=== PATIENT | male | born 1930 | race Caucasian/White ===

== ENCOUNTER 2017-02-15 14:21 | Inpatient (IN) ==
[2017-02-15] MEDS ORDERED: Naloxone 0.4 MG/ML INJ IVP PRN (16:57)
--- NOTE | 2017-02-15 17:11 | Internal Med History&Physical ---
Date of Encounter: 02/15/17 Time of Encounter: 17:08 Assessment and Plan (1) TIA (transient ischemic attack) Current visit: Yes Status: Acute TIA versus CVA how with intermittency of symptoms and resolution of symptoms and more suspect TIA. Patient reports intermittent expressive aphasia beginning on Monday. Aphasia subsided on Monday however began again this morning approximately 11 AM. Denies any current expressive aphasia at this time. No focal neuro deficits noted. He is hypertensive with -BL Carotid doppler -Continue ASA -Continue Statin -CBC, BMP/CMP, Lipid panel in am -NIHSS now -Dysphagia screening now -Neuro checks q2hrs -Consult Neurology- spoke with Dr. Arteaga will see the patient tomorrow; recommendations are to continue with stroke workup. -Heparin 5000units SC BID -cardiac diet -Permissive hypertension with goal blood systolic blood pressure less than 180 -Hydralazine 2 mg every 6 hours IV push when necessary for hypertension SBP >180 Qualifiers: Transient cerebral ischemia type: unspecified Qualified Code(s): G45.9 - Transient cerebral ischemic attack, unspecified (2) Hypertensive urgency Current visit: Yes Status: Acute Hypertensive urgency. Pressure upon arrival to nursing unit 203/84. Reports that this is abnormal for him. -Resume HCTZ at home dose -Add hydralazine 10mg IVP q6hrs PRN for sustained SBP greater than 180 (3) Sinus bradycardia Current visit: Yes Status: Acute Asymptomatic sinus bradycardia, rate in the 50s. Patient reports he is at this time of the last 3 years. Being followed by cardiology. Remains hemodynamically stable and in no distress (4) CAD (coronary artery disease) Current visit: Yes Status: Acute h/o CAD no prior [place] Continue aspirin, statin Qualifiers: Coronary Disease-Associated Artery/Lesion type: [place] artery [place] vs. transplanted heart: [place] heart Associated angina: without angina Qualified Code(s): I25.10 - Atherosclerotic heart disease of [place] coronary artery without angina pectoris (5) HLD (hyperlipidemia) Current visit: Yes Status: Acute See plan above Qualifiers: Hyperlipidemia type: unspecified Qualified Code(s): E78.5 - Hyperlipidemia , unspecified (6) DVT prophylaxis Current visit: Yes Status: Acute Heparin 5000 units subcutaneous twice a day Internal Medicine - H&P: HPI Chief complaint: Expressive aphasia concern for TIA versus CVA Admitted From: Home Plans for Post Hospital Care: Home History of present illness: Mr. Berkowitz is a 86 year old male with PMH of CAD and HLD. No prior history of CVA or TIA. He reports on Monday heis having difficulty expressing himself. He reports that he was able to think of what he wanted to say but unable to articulate his thoughts. He reports that it is resolved on Monday morning. However, this morning at around 11 AM he began to experience the same symptoms. He denies any fever, chills, chest pain, shortness of breath, facial droop, focal weaknesses, changes in gait, syncope, headache. He does report that he fell Monday evening hitting his head on his drywall. However I am unsure if this is related to his current symptoms. At time he arrived in the emergency department symptoms resolved. Initial workup included CAT scan which was found to be negative. Past Med Surg Social Fam HX - Past Medical History Medical history: coronary artery disease, hyperlipidemia, other Psychiatric history: no psych history - Social History Smoking Status: Never smoker Smokeless Tobacco Status: No Alcohol use: none Drug use: none Internal Medicine - H&P: Meds Aspirin [Lo-Dose Aspirin EC] 81 mg PO DAILY 02/15/17 [History] Carbidopa/Levodopa ER 50/200 [Sinemet ER 50-200 TAB] 1 each PO BID 02/15/17 [ History] Pramipexole Di-HCl [Pramipexole Dihydrochloride] 0.125 mg PO TID 02/15/17 [ History] Simvastatin [Zocor] 40 mg PO HS 02/15/17 [History] Tamsulosin [Flomax] 0.4 mg PO DAILY 02/15/17 [History] hydroCHLOROthiazide [Hydrochlorothiazide] 25 mg PO DAILY 02/15/17 [History] 3 Allergy/AdvReac Type Severity Reaction Status Date / Time No Known Allergies Allergy Verified 02/15/17 12:10 All Systems PM: A 10-system review of systems was performed and is negative for pertinent findings except as documented above in the HPI. Review of systems: GENERAL: Negative for any nausea, vomiting, fevers, chills, or weight loss. NEUROLOGIC: Negative for any blurry vision, blind spots, double vision, facial asymmetry, dysphagia, dysarthria, hemiparesis, hemisensory deficits, vertigo, ataxia. Positive for expressive aphasia HEENT: Positive for head trauma: Reports falling out of his chair landing on his bottom and hitting his head against the drywall, denies neck trauma, neck stiffness, photophobia, phonophobia, sinusitis, rhinitis. CARDIAC: Negative for any chest pain, dyspnea on exertion, paroxysmal nocturnal dyspnea, peripheral edema. PULMONARY: Negative for any shortness of breath, wheezing, COPD, or TB exposure. GASTROINTESTINAL: Negative for any abdominal pain, nausea, vomiting, bright red blood per rectum, melena. GENITOURINARY: Negative for any dysuria, hematuria, incontinence. INTEGUMENTARY: Negative for any rashes, cuts, insect bites. RHEUMATOLOGIC: Negative for any joint pains, photosensitive rashes, history of vasculitis or kidney problems. HEMATOLOGIC: Negative for any abnormal bruising, frequent infections or bleeding. - Constitutional Vitals: Temp Pulse Resp BP Pulse Ox 98 F 61 18 203/84 100 02/15/17 16:36 02/15/17 16:36 02/15/17 16:36 02/15/17 16:36 02/15/17 16:36 Exam: GENERAL: The patient is a well-developed, well-nourished male in no apparent distress who appears his stated age. He is alert and oriented x3. HEENT: Head is normocephalic and atraumatic. Extraocular muscles are intact on the right. 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 Pupil is round and reactive to light and accommodation. Nares appeared normal. Mouth is well hydrated and without lesions. NECK: Supple. No carotid bruits. No lymphadenopathy or thyromegaly. LUNGS: Clear to auscultation. HEART: Regular rate and rhythm without murmur. ABDOMEN: Soft, nontender, and nondistended. Positive bowel sounds. No hepatosplenomegaly was noted. EXTREMITIES: Without any cyanosis, clubbing, rash, lesions or edema. NEUROLOGIC: Cranial nerves II through XII are grossly intact. No focal neurological deficits PSYCHIATRIC: Appropriate affect, but denies suicidal or homicidal ideations. SKIN: No ulceration or induration present. Internal Med - H&P Results - EKG Data -: EKG Interpreted by Myself EKG shows normal: sinus rhythm Rate: bradycardia - EKG Data Prior EKG available for review: yes When compared to previous EKG: there is no significant change Interpretation IM: normal EKG - Diagnostic Studies CT scan - head Status: image reviewed by me Additional comments: Negative for acute intracranial abnormality
[2017-02-15] MEDS: *HR* Heparin 5,000 UNIT/ML VIAL SQ SCH (17:50)
--- NOTE | 2017-02-15 18:35 | Neurology - Consult Note ---
Date of Encounter: 02/15/17 Time of Encounter: 18:29 Assessment and Plan (1) TIA (transient ischemic attack) Current Visit: Yes Status: Acute Two episodes of exact speech difficulty lasting few hours to one day during daytime, without focal neurological deficits. Concerning for recurrent TIA. Been on Aspirin 81mg daily and since TIA occurred twice i would like to add on Plavix 75mg daily. Patient has history of having hypotension to the use of plavix after stent placement but true nature of the incident unclear. Will start Plavix 75mg daily and watch carefully. Would like to get carotid artery duplex and echocardiography. He has no prior history of atrial fibrillation. Patient has bradycardia and certainly rhythm monitoring is needed to assess whether these episodes are cardiac related. Qualifiers: Transient cerebral ischemia type: unspecified Qualified Code(s): G45.9 - Transient cerebral ischemic attack, unspecified History of Present Illness Chief complaint: speech difficulty HPI: Mr. Berkowitz is a 86 year old male with PMH significant for HTN, CAD, who developed acute onset of recurrent speech difficulty. 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 He and his went to [place] for the hol and on Monday he developed speech difficulty lasting all day long. The speech difficulty is described as having trouble finding the right word and also if he talks it came out something different. It lasted all day and Monday morning after waking up symptoms have resolved. They drove back to [place] yesterday. Today morning around 11am the same thing happened again, exactly the same. Lasting few hours with total resolution. At this time, he feels fine and denies any significant discomforts. Back to baseline. CT of head was read as no acute intracranial abnormality. He has been taking aspirin 81mgdaily. He mentioned that he tried one time of plavix after cardiac stent placement and his blood pressure dropped. Not sure it was allergy or something else. He can not get MRI scanning due to metal piece in the left eye. Past Med Surg Social Fam HX - Past Medical History Medical history: coronary artery disease, hyperlipidemia, other Psychiatric history: no psych history - Social History Smoking Status: Never smoker Smokeless Tobacco Status: No Alcohol use: none Drug use: none Medications and Allergies Aspirin [Lo-Dose Aspirin EC] 81 mg PO DAILY 02/15/17 [History] Carbidopa/Levodopa ER 50/200 [Sinemet ER 50-200 TAB] 1 each PO BID 02/15/17 [ History] Pramipexole Di-HCl [Pramipexole Dihydrochloride] 0.125 mg PO TID 02/15/17 [ History] Simvastatin [Zocor] 40 mg PO HS 02/15/17 [History] Tamsulosin [Flomax] 0.4 mg PO DAILY 02/15/17 [History] hydroCHLOROthiazide [Hydrochlorothiazide] 25 mg PO DAILY 02/15/17 [History] 3 Allergy/AdvReac Type Severity Reaction Status Date / Time No Known Allergies Allergy Verified 02/15/17 12:10 All Systems: A 10-system review of systems was performed and is negative for pertinent findings except as documented above in the HPI. Physical Examination - Vital Signs Vital Signs: Initial Vital Signs Temp Pulse Resp BP Pulse Ox 98 F 61 18 203/84 100 02/15/17 16:36 02/15/17 16:36 02/15/17 16:36 02/15/17 16:36 02/15/17 16:36 - Constitutional General appearance: comfortable - Neurologic Sensorimotor examination: intact Motor examination - right side: 5/5: deltoids, biceps, triceps, wrist flexion, wrist extension, kindergarten classroom teacher, hip flexors, tibialis Anterior, quadriceps, toe extension (EHL), plantarflexion Motor examination - left side: 5/5: deltoids, biceps, triceps, wrist flexion, wrist extension, hip flexors, kindergarten classroom teacher, quadriceps, tibialis Anterior, toe extension (EHL), plantarflexion Posture: other (None) Reflex and gait examination: other (Increased muscle tone and cogwheeling rigidity noted. Rest tremors. Bradykinesis) Reflexes: Biceps: 2+, Triceps: 2+, Brachioradialis: 2+, Patella: 2+, Achilles: 2 + Mental Status Examination: awake, alert, oriented to person, oriented to place, oriented to time, follows commands appropriately, answers questions appropriately, no agnosia, no aphasia, no aproxia Cranial nerve examination: PERRL (Reduced verbal output, reduced facial expression soft voice and hesitation speech noted), EOMI, visual serrano intact, corneal reflexes brisk symmetrically, sensory to face intact, mastication intact , no facial asymmetry is present, no dysarthria, hearing is intact symmetrically , soft palate elevates bilaterally upon phonation, gag reflex intact, flexes SCM and trapezius muscles symmetrically with full power, tongue protrudes midline, no atrophy or facial fasiculations present Consult Discharge Plan - Plan Referrals: Jero Hernández DO [Primary Care Provider] -
[2017-02-15] MEDS: Carbidopa/Levodopa ER 50/200 TABLET PO SCH (20:44)
[2017-02-16] MEDS: *HR* Heparin 5,000 UNIT/ML VIAL SQ SCH ×2 (05:16→18:41)
[2017-02-16 06:15] LABS: Basophils % 0.5 %; Eosinophils # 0.4 K/mcL (0.0-0.6); Hematocrit 35.5 % (37.5-50.1); Hemoglobin 11.4 g/dL (12.9-16.9); Immature Granulocytes % 0.5 % (0-4); Lymphocytes # 2.1 K/mcL (0.6-4.6); Lymphocytes % 32.8 %; Mean Corpuscular HGB Conc 32.1 g/dL (31.6-35.5); Mean Corpuscular Hemoglobin 30.5 pg (28.0-33.3); Mean Corpuscular Volume 94.9 fL (83.0-100.0); Mean Platelet Volume 10.9 fL (9.4-12.4); Monocytes # 0.6 K/mcL (0.0-1.3); Monocytes % 9.4 %; Neutrophils # 3.2 K/mcL (1.6-8.9); Platelet Count 183 K/mcL (140-400); Red Blood Count 3.74 M/mcL (4.19-5.50); Red Cell Distribution Width 13.1 % (11.5-14.5); Segmented Neutrophils % 50.8 %
[2017-02-16 06:32] LABS: BUN/Creatinine Ratio 25 (6-26); Blood Urea Nitrogen 23 mg/dL (8-23); Calcium 8.5 mg/dL (8.6-10.3); Carbon Dioxide 25 mEq/L (23-29); Chloride 109 mEq/L (98-107); Chol/HDL Ratio 2.1 (0-4.9); Cholesterol 121 mg/dL (< 200); Glucose 95 mg/dL (70-105); HDL Cholesterol 59 mg/dL (40-59); LDL Cholesterol,Calculated 47 mg/dL (0-99); Osmolality,Calculated 291 (280-300); Potassium 4.2 mEq/L (3.5-5.1); Sodium 139 mEq/L (136-145); Triglycerides 75 mg/dL (< 150); eGFR For African Americans > 60 (> 60); eGFR For Non-African Americans > 60 (> 60)
[2017-02-16] MEDS: hydroCHLOROthiazide 25 MG TABLET PO SCH (09:34)
[2017-02-16] MEDS: Aspirin Enteric Coated 81 MG Tablet PO SCH (09:34)
[2017-02-16] MEDS: Carbidopa/Levodopa ER 50/200 TABLET PO SCH ×2 (09:34→21:29)
--- NOTE | 2017-02-16 12:41 | Neurology Progress Note ---
Date of Encounter: 02/16/17 Time of Encounter: 12:39 Assessment and Plan (1) TIA (transient ischemic attack) Current Visit: Yes Status: Acute Patient developed two episodes of speech difficulty lasting few hours in duration less than 24 hours, no obvious other focal neurological deficits. Unable to get MRI. completed echocardiography and carotid artery duplex which are unremarkable. Will treat as TIA and since he already is on aspirin 81mg daily would add plavix 75mg daily. Patient has been experiencing elevated BP, please continue medical and supportive care. From neurology perspective, no additional testing is recommended. Please continue medical treatment of hypertensive urgency. Qualifiers: Transient cerebral ischemia type: unspecified Qualified Code(s): G45.9 - Transient cerebral ischemic attack, unspecified Subjective Principal diagnosis: TIA Interval history: Patient seen and examined. He remains asymptomatic. He completed carotid artery duplex and echocardiogrpahy, please refer to the reports for details. Will keep him on Aspirin 81mg daily and plavix 75mg daily. He is able to tolerate plavix 75mg daily no difficulty. BP elevated, however. Objective - Constitutional Vitals: Temp Pulse Resp BP Pulse Ox 98.7 F 61 16 199/73 100 02/16/17 11:31 02/16/17 11:31 02/16/17 11:31 02/16/17 11:31 02/16/17 11:31 - Neurological Exam Sensorimotor examination: Present: intact Motor examination - left side: 5/5: deltoids, biceps, triceps, wrist flexion, wrist extension, hip flexors, communications equipment installer, quadriceps, tibialis Anterior, toe extension (EHL), plantarflexion Posture: Present: other (None) Reflex and gait examination: other (Increased muscle tone and cogwheeling rigidity noted. Rest tremors. Bradykinesis) Mental Status Examination: Present: awake, alert, oriented to person, oriented to place, oriented to time, follows commands appropriately, answers questions appropriately, no agnosia, no aphasia, no aproxia Cranial nerve examination: Present: PERRL (Reduced verbal output, reduced facial expression soft voice and hesitation speech noted), EOMI, visual serrano intact, corneal reflexes brisk symmetrically, sensory to face intact, mastication intact, no facial asymmetry is present, no dysarthria, hearing is intact symmetrically, soft palate elevates bilaterally upon phonation, gag reflex intact, flexes SCM and trapezius muscles symmetrically with full power, tongue protrudes midline, no atrophy or facial fasiculations present Results - Laboratory Findings CBC and BMP: 02/16/17 05:09 02/16/17 05:09 Abnormal lab findings: Abnormal lab results RBC 3.74 M/mcL (4.19-5.50) L 02/16/17 05:09 Hgb 11.4 g/dL (12.9-16.9) L 02/16/17 05:09 Hct 35.5 % (37.5-50.1) L 02/16/17 05:09 Chloride 109 mEq/L (98-107) H 02/16/17 05:09 Calcium 8.5 mg/dL (8.6-10.3) L 02/16/17 05:09 Consult Discharge Plan - Plan Referrals: Jero Hernández DO [Primary Care Provider] - 02/28/17 9:30 am
--- NOTE | 2017-02-16 16:41 | Internal Med Progress Note ---
Date of Encounter: 02/16/17 Time of Encounter: 16:39 - Assessment and plan (1) TIA (transient ischemic attack) Current Visit: Yes Status: Acute Qualifiers: Transient cerebral ischemia type: unspecified Qualified Code(s): G45.9 - Transient cerebral ischemic attack, unspecified (2) Hypertensive urgency Current Visit: Yes Status: Acute (3) CAD (coronary artery disease) Current Visit: Yes Status: Chronic Qualifiers: Coronary Disease-Associated Artery/Lesion type: [place] artery [place] vs. transplanted heart: [place] heart Associated angina: without angina Qualified Code(s): I25.10 - Atherosclerotic heart disease of [place] coronary artery without angina pectoris (4) HLD (hyperlipidemia) Current Visit: Yes Status: Chronic Assessment and plan: NO ACUTE FOCAL NEUROLOGICAL SX. PT SEEN BY NEUROLOGY, RECOMMENDS CONT ASA AND ADDING PLAVIX. ECHO AND CAROTIDS COMPLETED AND NO ACUTE FINDINGS. WILL ADD LISINOPRIL AND NORVASC TO BETTER CONTROL BP CONTINUE HCTZ. ANTICIPATE DC TO HOME IN THE AM. Qualifiers: Hyperlipidemia type: pure hypercholesterolemia Qualified Code(s): E78.00 - Pure hypercholesterolemia, unspecified; E78.0 - Pure hypercholesterolemia - Subjective Interval history: REPORTED FEELING BETTER EARLIER TODAY, THEN LATER REPORTS TINGLING ON BOTH FINGERS BUT NO MUSCLE WEAKNES, SLURRING OF SPEECH OR DIPLOPIA - Constitutional Vitals: Temp Pulse Resp BP Pulse Ox 97.5 F L 57 17 129/65 96 02/16/17 16:02 02/16/17 16:02 02/16/17 16:02 02/16/17 16:02 02/16/17 16:02 General appearance: Present: A&O X 3 - Head Head exam: Present: atraumatic, normocephalic - Eye Eye exam: Present: PERRL, conjuntiva pink, sclera anicteric Pupils: Present: PERRL - Neck Neck exam general surgery: Present: supple, trachea midline. Absent: lymphadenopathy - Respiratory Respiratory exam: Present: CTAB. Absent: accessory muscle use, rales, rhonchi, wheezes - Cardiovascular Cardiovascular exam: Present: RRR, +S1, +S2. Absent: diastolic murmur, gallop, rubs, systolic murmur - GI/Abdominal GI/Abdominal exam: Present: normal bowel sounds, soft, no peritoneal signs. Absent: distended, tenderness - Extremities Exam Extremities exam: Present: warm, radial pulses palpable and symmetrical. Absent : calf tenderness, cyanotic, pedal edema - Neurological Exam Neurological exam: Present: CN II-XII intact, oriented X3, no focal deficits. Absent: pronater drift, facial droop, speech deficit - Skin Skin exam: Present: dry, intact Internal Medicine: Result - Labs CBC & Chem 7: 02/16/17 05:09 02/16/17 05:09 Labs: Short CBC 02/16/17 Range/Units 05:09 WBC 6.4 (4.3-11.1) K/mcL Hgb 11.4 L (12.9-16.9) g/dL Hct 35.5 L (37.5-50.1) % Plt Count 183 (140-400) K/mcL Neutrophils # 3.2 (1.6-8.9) K/mcL BMP 02/16/17 05:09 Sodium 139 Potassium 4.2 Chloride 109 H Carbon Dioxide 25 BUN 23 Creatinine 0.92 Glucose 95 Calcium 8.5 L Cardiac Enzymes 02/15/17 Range/Units 17:22 Troponin I < 0.03 (< 0.04) ng/mL - Impressions Impressions Echocardiogram 02/15/17 18:47 Impressions: LVEF 60-65%. Asymmetric basal septal hypertrophy. Indeterminate diastolic function. Normal right ventricular structure and function. Mild aortic regurgitation. Mild mitral regurgitation. No pulmonary hypertension. Unable to perform bubble study - poor IV access. Left Ventricular Wall Motion: Rest Echo Findings All wall segments showed normal motion. Findings: Study Quality * Technically adequate exam. ECG Findings * Normal sinus rhythm. Left Ventricle * LVEF 60-65%. * Normal LV chamber size and function. * Asymmetric basal septal hypertrophy. * Indeterminate diastolic function. Right Ventricle * Normal right ventricular structure and function. Left Atrium * Normal left atrial size. Right Atrium * Normal right atrial size. Aortic Valve * Aortic valve not well visualized. * Mild aortic regurgitation. * No aortic stenosis. Mitral Valve * Normal mitral valve structure. * No mitral stenosis. * Mild mitral regurgitation. Tricuspid Valve * Tricuspid valve not well visualized. * Trace tricuspid regurgitation. Pulmonic Valve * Pulmonic valve is not well visualized. * No pulmonic stenosis. * No pulmonic regurgitation. Interatrial Septum * Interatrial septum not well evaluated. Pulmonary Artery * Pulmonary artery not well visualized. Aorta * Normally sized aortic root. Pericardium * There is no pericardial effusion present. IVC * The IVC is not well evaluated. Head CT 02/16/17 13:30 IMPRESSION: No evidence of acute intracranial abnormality. If clinical symptomatology persists, follow-up MRI examination with diffusion imaging may be helpful for more complete evaluation. D/ / 02/16/2017 15:20:16 Jamal Dudley MD / [email or web address] Interpreting Provider: Jamal Dudley MD Consult Discharge Plan - Plan Referrals: Jero Hernández DO [Primary Care Provider] - 02/28/17 9:30 am
[2017-02-16] MEDS: amLODIPine 5 MG TABLET PO SCH (21:37)
[2017-02-17] MEDS: *HR* Heparin 5,000 UNIT/ML VIAL SQ SCH (06:03)
--- NOTE | 2017-02-17 08:50 | Neurology Progress Note ---
Date of Encounter: 02/17/17 Time of Encounter: 08:46 Assessment and Plan (1) TIA (transient ischemic attack) Current Visit: Yes Status: Acute 86 year old man with HTN, Parkinson disease who developed recurrent episodes of speech difficulty, resolved. Could be related to elevated BP or hypertensive urgency. Symptoms resolved and BP better controlled. Continue Aspirin 81mg daily and Plavix 75mg daily. Patient ready to be discharged. Patient to follow up with PCP regarding hospital stay and management of his HTN. Patient will see me in office, already scheduled. Qualifiers: Transient cerebral ischemia type: unspecified Qualified Code(s): G45.9 - Transient cerebral ischemic attack, unspecified Subjective Principal diagnosis: TIA Interval history: Patient seen and examined. He is asymptomatic. BP appears better controlled. No discomforts. HE is taking Plavix 75mg daily and Aspirin 81mg daily and no side effects reported. Objective - Constitutional Vitals: Temp Pulse Resp BP Pulse Ox 97.8 F 56 15 142/73 95 02/17/17 06:48 02/17/17 06:48 02/17/17 06:48 02/17/17 06:48 02/17/17 06:48 - Neurological Exam Sensorimotor examination: Present: intact Motor examination - right side: 5/5: deltoids, biceps, triceps, wrist flexion, wrist extension, director of quality, hip flexors, tibialis Anterior, quadriceps, toe extension (EHL), plantarflexion Motor examination - left side: 5/5: deltoids, biceps, triceps, wrist flexion, wrist extension, hip flexors, director of quality, quadriceps, tibialis Anterior, toe extension (EHL), plantarflexion Posture: Present: other (None) Reflex and gait examination: tandem gait (Increased muscle tone and cogwheeling rigidity noted. Rest tremors. Bradykinesis) Reflexes: Biceps: 2+, Triceps: 2+, Brachioradialis: 2+, Patella: 2+, Achilles: 2 + Mental Status Examination: Present: awake, alert, oriented to person, oriented to place, oriented to time, follows commands appropriately, answers questions appropriately, no agnosia, no aphasia, no aproxia Cranial nerve examination: Present: PERRL (Reduced verbal output, reduced facial expression soft voice and hesitation speech noted), EOMI, visual serrano intact, corneal reflexes brisk symmetrically, sensory to face intact, mastication intact, no facial asymmetry is present, no dysarthria, hearing is intact symmetrically, soft palate elevates bilaterally upon phonation, gag reflex intact, flexes SCM and trapezius muscles symmetrically with full power, tongue protrudes midline, no atrophy or facial fasiculations present Results - Laboratory Findings CBC and BMP: 02/16/17 05:09 02/16/17 05:09 Abnormal lab findings: Abnormal lab results RBC 3.74 M/mcL (4.19-5.50) L 02/16/17 05:09 Hgb 11.4 g/dL (12.9-16.9) L 02/16/17 05:09 Hct 35.5 % (37.5-50.1) L 02/16/17 05:09 Chloride 109 mEq/L (98-107) H 02/16/17 05:09 Calcium 8.5 mg/dL (8.6-10.3) L 02/16/17 05:09 - Diagnostic Findings Additional findings: EV/EV echocardiogram Impressions: LVEF 60-65%. Asymmetric basal septal hypertrophy. Indeterminate diastolic function. Normal right ventricular structure and function. Mild aortic regurgitation. Mild mitral regurgitation. No pulmonary hypertension. Unable to perform bubble study - poor IV access. Carotid artery duplex : Impressions: Findings: Bilateral proximal ICA have nonstenotic plaque. Consult Discharge Plan - Plan Referrals: Jero Hernández DO [Primary Care Provider] - 02/28/17 9:30 am
[2017-02-17] MEDS: Aspirin Enteric Coated 81 MG Tablet PO SCH (09:24)
[2017-02-17] MEDS: hydroCHLOROthiazide 25 MG TABLET PO SCH (09:25)
[2017-02-17] MEDS: amLODIPine 5 MG TABLET PO SCH (09:26)
[2017-02-17] MEDS: Carbidopa/Levodopa ER 50/200 TABLET PO SCH (09:27)
[2017-02-17 10:40] VITALS: BP 152/75
--- NOTE | 2017-02-17 11:17 | Discharge Summary ---
Date of Encounter: 02/17/17 Time of Encounter: 11:12 - Discharge Diagnosis (1) TIA (transient ischemic attack) Priority: Primary Status: Acute Qualifiers: Transient cerebral ischemia type: unspecified Qualified Code(s): G45.9 - Transient cerebral ischemic attack, unspecified (2) Hypertensive urgency Priority: Primary Status: Acute (3) CAD (coronary artery disease) Priority: Secondary Status: Chronic Qualifiers: Coronary Disease-Associated Artery/Lesion type: [place] artery [place] vs. transplanted heart: [place] heart Associated angina: without angina Qualified Code(s): I25.10 - Atherosclerotic heart disease of [place] coronary artery without angina pectoris (4) HLD (hyperlipidemia) Priority: Primary Status: Chronic Qualifiers: Hyperlipidemia type: pure hypercholesterolemia Qualified Code(s): E78.00 - Pure hypercholesterolemia, unspecified; E78.0 - Pure hypercholesterolemia - Discharge Medications Prescriptions: amLODIPine [Norvasc] 10 mg PO DAILY #60 tablet Clopidogrel [Plavix] 75 mg PO DAILY #90 tablet Home Medications: Aspirin [Lo-Dose Aspirin EC] 81 mg PO DAILY 02/15/17 [History] Carbidopa/Levodopa ER 50/200 [Sinemet ER 50-200 Tab] 1 each PO BID 02/15/17 [ History] Pramipexole Di-HCl [Pramipexole Dihydrochloride] 0.125 mg PO TID 02/15/17 [ History] Simvastatin [Zocor] 40 mg PO HS 02/15/17 [History] Tamsulosin [Flomax] 0.4 mg PO DAILY 02/15/17 [History] hydroCHLOROthiazide [Hydrochlorothiazide] 25 mg PO DAILY 02/15/17 [History] Clopidogrel [Plavix] 75 mg PO DAILY #90 tablet 02/17/17 [Rx] amLODIPine [Norvasc] 10 mg PO DAILY #60 tablet 02/17/17 [Rx] Allergies/Adverse Reactions: 3 Allergy/AdvReac Type Severity Reaction Status Date / Time No Known Allergies Allergy Verified 02/15/17 12:10 Procedures/tests Complete & Pending: Procedures Performed prior 72 hours Category Date Time Status CT head/brain wo con [CT] Routine Cat Scan 02/16/17 13:30 Completed ECG 12 lead ECG [ECG] Routine Y 02/15/17 16:15 Completed EV carotid duplex imaging BI Routine Y 02/15/17 16:54 Completed EV echocardiogram Routine Y 02/15/17 18:47 Completed Date of admission: 02/15/17 16:57 Primary care physician: Jero Hernández DO Consults: 02/15/17 17:07 Consult to Neurology [CONS] Routine Consulting Provider: [facility] Reason for Consult: New expressive aphasia Time Notified: 17:07 Call Completed: Yes 02/17/17 11:09 Consult to Occupational Therapy [CONS] Routine Comment: Evaluate, develop and implement POC Reason for Consult: TIA Consult to Physical Therapy [CONS] Stat Comment: Evaluate, develop and implement POC Reason for Consult: TIA - Patient Status Disposition: Home, Self-Care Overall status at discharge: patient is back to baseline - Discharge Instructions Follow Up With: Jero Hernández DO [Primary Care Provider] - 02/28/17 9:30 am - Diet and Activity Activity: as per physical therapy, increase activity as tolerated Diet: low fat, low cholesterol Hospital course: Mr. Berkowitz is a 86 year old male WIth PMH of CAD and HLD. No prior history of CVA or TIA. He reports on Monday having difficulty expressing himself. He was thought to have CVA. MRI was however negative. Pt is determined to have likely had a TIA. He was seen by neurology who agreed with the TIA doagnosis, recommended adding plavix to his aspirin regimen Will have PT/OT to evaluate patient. Pt is stable for discharge. - Time Spent with Patient Total time spent providing and/or coordinating discharge services: - Constitutional Vitals: Temp Pulse Resp BP Pulse Ox 97.6 F 59 16 152/75 99 02/17/17 10:38 02/17/17 10:38 02/17/17 10:38 02/17/17 10:38 02/17/17 10:38 General appearance: Present: A&O X 3 - Head Head exam: Present: atraumatic, normocephalic - Eye Eye exam: Present: PERRL, conjuntiva pink, sclera anicteric Pupils: Present: PERRL - Neck Neck exam general surgery: Present: supple, trachea midline. Absent: lymphadenopathy - Respiratory Respiratory exam: Present: CTAB. Absent: accessory muscle use, rales, rhonchi, wheezes - Cardiovascular Cardiovascular exam: Present: RRR, +S1, +S2. Absent: diastolic murmur, gallop, rubs, systolic murmur - GI/Abdominal GI/Abdominal exam: Present: normal bowel sounds, soft, no peritoneal signs. Absent: distended, tenderness - Extremities Exam Extremities exam: Present: warm, radial pulses palpable and symmetrical. Absent : calf tenderness, cyanotic, pedal edema - Neurological Exam Neurological exam: Present: CN II-XII intact, oriented X3, no focal deficits. Absent: pronater drift, facial droop, speech deficit - Skin Skin exam: Present: dry, intact
== END 2017-02-17 13:10 | disposition home health service (06) | DRG 69 ==
LOC: 3BNU → OBSVTOIN 15:33
PROVIDERS: ADMIT Internal Medicine Nephrology; ATTEND Registered Nurse

== ENCOUNTER 2017-03-22 19:32 | Inpatient (IN) ==
[2017-03-22] MEDS ORDERED: Naloxone 0.4 MG/ML INJ IVP PRN (22:58)
[2017-03-22] MEDS ORDERED: Furosemide 20 MG/2 ML VIAL IVP ONE (23:12)
[2017-03-22] MEDS ORDERED: Ipratropium/Albuterol Neb 3 ML IH PRN (23:13)
[2017-03-22] MEDS ORDERED: *HR* Atropine Sulfate 1 MG/10 ML SYRINGE IVP PRN (23:24)
--- NOTE | 2017-03-22 23:39 | Internal Med History&Physical ---
Date of Encounter: 03/22/17 Time of Encounter: 22:00 Assessment and Plan (1) Syncope Current visit: Yes Status: Acute Pt had syncope, etiology undetermined. Pt was found bradycardia and hypotension in ER, most likely account for syncope. - Head CT - Continuous cardiac monitoring - Atropine PRN for bradycardia - Echo, duplex carotid - Orthostatic vitals - Consult cardiology in AM for bradycardia Qualifiers: Syncope type: unspecified Qualified Code(s): R55 - Syncope and collapse (2) Hypothermia Current visit: Yes Status: Acute Pt has low T to 93.7. Etiology is undetermined, Pt has Parkinson disease and has rhonchi/wheezes in b/l lungs, need to consider eraly stage pneumonia although CXR negative. Pt has leg swelling but BNP negative. - Check Flu test, lactate, and blood culture. - No leukocytosis or tachypnea, or tachycardia - Empirically treat pt with unasyn for aspiration PNA - Place pt on bear hugger and check temp q 1 hour. - Pt has TSH 12, consider hypothyroidism, will start synthroid. However, it seems not severe enough to cause this hypothermia. Qualifiers: Encounter type: initial encounter Qualified Code(s): T68.XXXA - Hypothermia , initial encounter (3) Hypothyroidism Current visit: Yes Status: Acute Will start synthroid at 75 mcg qd. F/U TSH in 6 wks. Qualifiers: Hypothyroidism type: acquired Qualified Code(s): E03.9 - Hypothyroidism, unspecified (4) PNA (pneumonia) Current visit: Yes Status: Acute Suspect aspiration PNA, Unasyn started. Duoneb PRN and scheduled. Qualifiers: Pneumonia type: aspiration pneumonia Aspiration pneumonia type: unspecified Laterality: unspecified laterality Lung location: unspecified part of lung Qualified Code(s): J69.0 - Pneumonitis due to inhalation of food and vomit (5) CAD (coronary artery disease) Current visit: No Status: Chronic Stable, no chest pain, cont home med Qualifiers: Coronary Disease-Associated Artery/Lesion type: [place] artery [place] vs. transplanted heart: [place] heart Associated angina: without angina Qualified Code(s): I25.10 - Atherosclerotic heart disease of [place] coronary artery without angina pectoris (6) DVT prophylaxis Current visit: No Status: Acute Heparin SC (7) Bradycardia with 31-40 beats per minute Current visit: No Status: Acute Now NSR at HR 60s. EKG in [facility] reviewed, looks like complete AVB with multiple PVCs although EKG machine report A Fib with slow ventricular response. - Cont cardiac monitoring - Atropine PRN for bradycardia - Consult cardiology in AM (8) Parkinson disease Current visit: Yes Status: Acute Cont home medications. (9) Hx of transient ischemic attack (TIA) Current visit: Yes Status: Acute Cont antiplatelet for secondary prevention. Pt has no focal neuro deficit now. Internal Medicine - H&P: HPI Chief complaint: Syncope Admitted From: Home Plans for Post Hospital Care: Home History of present illness: Mr. Berkowitz is a 87 year old male with Hx of Parkinson disease, Hx of TIA, CAD s/p stent, skin cancer s/p multiple surgery sent to [place] ER for syncope. Pt said he had syncope this afternoon. Denies head injury. Denies chest pain, SOB, nausea, or diarhea. In ER pt was found bradycardia to HR 37, hypotension to SBP 70s. EKG shows A Fib with slow ventricular response. He was given atropine in ER and HR get to 60s with NSR. Pt has negative CXR and negative UA. He has hypothermia in ER with T 95-96F. He was further found hypothermia in our hospital with rectal T 93.7. Per pt's daughter Magui, pt is not well for about one week, his speech is slow and sometimes needs to find words to express. Pt has metal in face and cannot have MRI. Past Med Surg Social Fam HX - Past Medical History Medical history: coronary artery disease, hyperlipidemia, other Psychiatric history: no psych history - Social History Smoking Status: Never smoker Smokeless Tobacco Status: No Alcohol use: none Drug use: none - Family History Mother History Unknown: Yes Internal Medicine - H&P: Meds Aspirin [Lo-Dose Aspirin EC] 81 mg PO DAILY 02/15/17 [History] Carbidopa/Levodopa ER 50/200 [Sinemet ER 50-200 Tab] 1 each PO BID 02/15/17 [ History] Pramipexole Di-HCl [Pramipexole Dihydrochloride] 0.125 mg PO TID 02/15/17 [ History] Simvastatin [Zocor] 40 mg PO HS 02/15/17 [History] Tamsulosin [Flomax] 0.4 mg PO DAILY 02/15/17 [History] Clopidogrel [Plavix] 75 mg PO DAILY #90 tablet 02/17/17 [Rx] amLODIPine [Norvasc] 5 mg PO DAILY 03/22/17 [History] 3 Allergy/AdvReac Type Severity Reaction Status Date / Time No Known Allergies Allergy Verified 02/15/17 12:10 All Systems PM: A 10-system review of systems was performed and is negative for pertinent findings except as documented above in the HPI. - Constitutional Constitutional: weight gain (Weight gain 17 Lbs because of stopping diuretics), no chills, no fever(s), no night sweats - EENT Eyes: no change in vision, no discharge, no pain, no photophobia Ears: no ear discharge, no ear pain, no tinnitus Nose, mouth and throat: no dysphagia, no nasal discharge, no neck pain, no sore throat - Cardiovascular Cardiovascular ROS IM: no chest pain, no diaphoresis, no dyspnea, no lightheadedness, no palpitations, no syncope - Respiratory Respiratory: no cough, no dyspnea, no wheezing, no excessive phlegm production - Gastrointestinal Gastrointestinal: no abdominal pain, no diarrhea, no hematemesis, no hematochezia, no melena, no nausea, no vomiting - Musculoskeletal Musculoskeletal ROS IM: no numbness, no tingling - Integumentary Integumentary IM: no rash, no unusual bruising - Neurological Neurological ROS: no confusion, no convulsions, no focal weakness, no numbness, no tingling, no tremor(s) - Hematologic/Lymphatic Hematologic/Lymphatic: no easy bruising - Constitutional Vitals: Temp Pulse Resp BP Pulse Ox 93.7 F L 70 20 114/57 97 03/22/17 22:44 03/22/17 22:44 03/22/17 22:44 03/22/17 22:44 03/22/17 22:44 General appearance: Present: A&O X 3, no acute distress, answers questions appropriately - Head Head exam: Present: atraumatic, normocephalic - Eye Eye exam: Present: PERRL, conjuntiva pink, sclera anicteric Pupils: Present: PERRL - Neck Neck exam general surgery: Present: supple, trachea midline. Absent: lymphadenopathy - Respiratory Respiratory exam: Present: CTAB, wheezes (scattered wheezes/rhonchi b/l). Absent: accessory muscle use, rales, rhonchi - Cardiovascular Cardiovascular exam: Present: RRR, +S1, +S2. Absent: diastolic murmur, gallop, rubs, systolic murmur - GI/Abdominal GI/Abdominal exam: Present: normal bowel sounds, soft, no peritoneal signs. Absent: distended, tenderness - Extremities Exam Extremities exam: Present: pedal edema (B/L pedal edema to knees), warm, radial pulses palpable and symmetrical. Absent: calf tenderness, cyanotic - Neurological Exam Neurological exam: Present: CN II-XII intact, oriented X3, no focal deficits. Absent: pronater drift, facial droop, speech deficit - Skin Skin exam: Present: dry, intact Internal Med - H&P Results - EKG Data -: EKG Interpreted by Myself Rate: bradycardia (Look like complete AVB with PVCs.)
[2017-03-23 00:21] LABS: Basophils % 0.1 %; Eosinophils % 0.4 %; Hematocrit 32.4 % (37.5-50.1); Hemoglobin 10.5 g/dL (12.9-16.9); Immature Granulocytes % 0.3 % (0-4); Lymphocytes # 0.4 K/mcL (0.6-4.6); Lymphocytes % 4.8 %; Mean Corpuscular HGB Conc 32.4 g/dL (31.6-35.5); Mean Corpuscular Hemoglobin 30.2 pg (28.0-33.3); Mean Corpuscular Volume 93.1 fL (83.0-100.0); Mean Platelet Volume 11.2 fL (9.4-12.4); Monocytes # 0.1 K/mcL (0.0-1.3); Monocytes % 1.6 %; Neutrophils # 6.8 K/mcL (1.6-8.9); Platelet Count 159 K/mcL (140-400); Red Blood Count 3.48 M/mcL (4.19-5.50); Red Cell Distribution Width 13.2 % (11.5-14.5); Segmented Neutrophils % 92.8 %
[2017-03-23] MEDS: Ampicillin/Sulbactam 3,000 MG in 0.9 % Sodium Chloride Mini Bag 100 ML IVPB SCH ×5 (00:31→23:38)
[2017-03-23 00:41] LABS: Alanine Aminotransferase 25 Units/L (7-52); Albumin 3.5 g/dL (3.5-5.7); Albumin/Globulin Ratio 1.3 (1.1-2.2); Alkaline Phosphatase 80 Units/L (34-104); Aspartate Amino Transferase 38 Units/L (13-39); BUN/Creatinine Ratio 34 (6-26); Bilirubin,Total 0.5 mg/dL (0.3-1.0); Blood Urea Nitrogen 32 mg/dL (8-23); Calcium 8.5 mg/dL (8.6-10.3); Carbon Dioxide 27 mEq/L (23-29); Chloride 102 mEq/L (98-107); Globulin 2.7 g/dL (2.4-3.5); Glucose 114 mg/dL (70-105); Magnesium 2.1 mg/dL (1.6-2.6); Osmolality,Calculated 286 (280-300); Potassium 3.8 mEq/L (3.5-5.1); Sodium 134 mEq/L (136-145); Total Protein 6.2 g/dL (6.4-8.9); eGFR For African Americans > 60 (> 60); eGFR For Non-African Americans > 60 (> 60)
[2017-03-23 03:54] LABS: Basophils % 0.1 %; Eosinophils % 0.1 %; Hematocrit 31.2 % (37.5-50.1); Hemoglobin 10.4 g/dL (12.9-16.9); Immature Granulocytes % 0.1 % (0-4); Lymphocytes # 0.3 K/mcL (0.6-4.6); Lymphocytes % 4.4 %; Mean Corpuscular HGB Conc 33.3 g/dL (31.6-35.5); Mean Corpuscular Hemoglobin 30.3 pg (28.0-33.3); Mean Platelet Volume 11.6 fL (9.4-12.4); Monocytes # 0.2 K/mcL (0.0-1.3); Monocytes % 3.4 %; Neutrophils # 6.5 K/mcL (1.6-8.9); Platelet Count 147 K/mcL (140-400); Red Blood Count 3.43 M/mcL (4.19-5.50); Red Cell Distribution Width 13.2 % (11.5-14.5); Segmented Neutrophils % 91.9 %
[2017-03-23] MEDS: Ipratropium/Albuterol Neb 3 ML IH SCH ×4 (04:05→22:28)
[2017-03-23 04:18] LABS: BUN/Creatinine Ratio 31 (6-26); Blood Urea Nitrogen 31 mg/dL (8-23); Calcium 8.5 mg/dL (8.6-10.3); Carbon Dioxide 25 mEq/L (23-29); Chloride 103 mEq/L (98-107); Glucose 87 mg/dL (70-105); Osmolality,Calculated 290 (280-300); Potassium 3.3 mEq/L (3.5-5.1); Sodium 137 mEq/L (136-145); eGFR For African Americans > 60 (> 60); eGFR For Non-African Americans > 60 (> 60)
[2017-03-23 04:24] LABS: Triiodothyronine (T3) Free 3.17 pg/mL (2.50-3.90)
[2017-03-23 04:35] LABS: Platelet Estimate Normal (Normal)
[2017-03-23] MEDS ORDERED: Potassium Chloride 40 MEQ, Lidocaine 1% 2 ML in D5% in Water 500 ML IVPB ONE (04:55)
--- NOTE | 2017-03-23 10:55 | Internal Med Progress Note ---
<Venu Andrea - Last Filed: 03/23/17 15:00> Date of Encounter: 03/23/17 Time of Encounter: 10:49 - Assessment and plan (1) Syncope Current Visit: Yes Status: Acute Assessment and plan: - Syncopal episode at home. Patient altered for interview, daughter at bedside was not present. - Pt was reportedly not feeling well for past week - Possibly secondary to bradycardia secondary to hypothyroidism as below. - Cardiology following, appreciate recommendations. Plan - Echo shows EF 65%, valvular abnormalities. no carotid stenotic plaque on US in January. - Cardiology recommendations for bradycardia is to avoid BB for AFib, treat underlying thyroid -Possible CVA etiology, CT head negative in ED. Will consider CT tomorrow morning if no improvement. - Continue to monitor Qualifiers: Syncope type: unspecified Qualified Code(s): R55 - Syncope and collapse (2) Sinus bradycardia Current Visit: Yes Status: Acute Assessment and plan: - Patient was sinus bradycardia on admission with rate in 40s,50s - EKG repeated in ED showing AFib, paroxysmal. - Possible etiology of hypothyroidism. TSH of 12 in [place] ED. Started on synthroid - Other etiology of shock secondary to infection Plan - Cardiology following - Avoid AV node blockers - Continue synthroid, unasyn for possible aspiration PNA - Continue Tele, close monitoring - Atropine PRN bradycardia (3) Atrial fibrillation Current Visit: Yes Status: Acute Assessment and plan: Currently in NSR, however likely AFib on EKG in ED - WIll avoid AV danya blockade as patient has been bradycardic - Consider anticoagulation once more stable. CHADVASC 6 Qualifiers: Atrial fibrillation type: unspecified Qualified Code(s): I48.91 - Unspecified atrial fibrillation (4) Hypothermia Current Visit: Yes Status: Resolved Assessment and plan: Resolved. - Continue heating blanket as needed. - Possible secondary to shock, hypothyroid. Qualifiers: Encounter type: initial encounter Qualified Code(s): T68.XXXA - Hypothermia , initial encounter (5) Hypothyroidism Current Visit: Yes Status: Acute Assessment and plan: - TSH of 12 in [place] ED - Free T4, T4, Free T3 all wnl - Started synthroid 75 on admission. Will continue - Continue to monitor. - Low suspicion for myxedema at this time. Qualifiers: Hypothyroidism type: unspecified Qualified Code(s): E03.9 - Hypothyroidism , unspecified (6) CAD (coronary artery disease) Current Visit: Yes Status: Chronic Assessment and plan: EKG reviewed. No chest pain Continue ASA, plavix Qualifiers: Coronary Disease-Associated Artery/Lesion type: [place] artery [place] vs. transplanted heart: [place] heart Associated angina: without angina Qualified Code(s): I25.10 - Atherosclerotic heart disease of [place] coronary artery without angina pectoris (7) PNA (pneumonia) Current Visit: Yes Status: Acute Assessment and plan: - Possible aspiration PNA as demonstrated on CXR in ED - Aspiration component given syncopal episode - WBC of 7.1, afebrile. Hypothermic on presentation. VSS. Tolerating 4L O2. - Possible source of AFib precipitating as well as thyroid. - Started on unasyn. Will continue - Blood cultures pending. Qualifiers: Pneumonia type: aspiration pneumonia Aspiration pneumonia type: unspecified Laterality: unspecified laterality Lung location: unspecified part of lung Qualified Code(s): J69.0 - Pneumonitis due to inhalation of food and vomit (8) Parkinson disease Current Visit: Yes Status: Chronic Assessment and plan: - Continue home meds. (9) Hx of transient ischemic attack (TIA) Current Visit: Yes Status: Acute Assessment and plan: - Suspect source of syncope is more likely related to thyroid - AMS secondary to infection vs CVA. - CT head negative in ED - Will continue to monitor and continue aspirin and plavix - Low threshold for repeat CT in future if worsens (10) DVT prophylaxis Current Visit: Yes Status: Acute Assessment and plan: SCDs until we are sure of syncope etiology - Time Spent With Patient 25 - 35 minutes - Subjective Interval history: Patient seen and examined at bedside. During time of interview, patient is fast asleep and daughter who is at bedside states that he has been agitated all night and was reaching with possible hallucinations. Daughter also states that his baseline is walking and talking with AOx3. He did have a TIA in January which he was reportedly confused with hallucinations, and slurred speech but he returned to baseline levels. - Constitutional Vitals: Temp Pulse Resp BP Pulse Ox 97.9 F 71 16 102/62 99 03/23/17 09:00 03/23/17 09:06 03/23/17 10:22 03/23/17 09:06 03/23/17 10:22 General appearance: Present: A&O X 3, no acute distress, answers questions appropriately Exam: Gen.: Vitals noted. No acute distress. AAOx0, resting comfortably. Covered in thermal blanket. HEENT: PERRL/EOMI, oropharynx clear, Normocephalic, atraumatic, MMM Cardiac: RRR, no murmur, +S1/S2 Pulmonary: CTA bilaterally, no wheezes, rales or rhonchi, equal chest expansion Abdomen: soft, nontender, BS noted, no guarding Extremities: no BLE edema, nontender calf, no cyanosis or clubbing Neuro: Unable to assess due to mental status. Psych: Unable to assess. Internal Medicine: Result - Labs CBC & Chem 7: 03/23/17 03:16 03/23/17 03:16 Labs: Short CBC 03/23/17 03/23/17 Range/Units 00:11 03:16 WBC 7.3 7.1 (4.3-11.1) K/mcL Hgb 10.5 L 10.4 L (12.9-16.9) g/dL Hct 32.4 L 31.2 L (37.5-50.1) % Plt Count 159 147 (140-400) K/mcL Neutrophils # 6.8 6.5 (1.6-8.9) K/mcL BMP 03/23/17 03/23/17 00:11 03:16 Sodium 134 L 137 Potassium 3.8 3.3 L Chloride 102 103 Carbon Dioxide 27 25 BUN 32 H 31 H Creatinine 0.94 1.01 Glucose 114 H 87 Calcium 8.5 L 8.5 L Liver Function 03/23/17 Range/Units 00:11 Total Bilirubin 0.5 (0.3-1.0) mg/dL AST 38 (13-39) Units/L ALT 25 (7-52) Units/L Alkaline Phosphatase 80 (34-104) Units/L Albumin 3.5 (3.5-5.7) g/dL - Impressions Impressions Head CT 03/22/17 22:57 IMPRESSION: Acute sinusitis. Otherwise no acute intracranial disease. D/ / Lex Benites MD / Lex Benites MD Interpreting Provider: Lex Benites MD Consult Discharge Plan - Plan Referrals: Jero Hernández DO [Primary Care Provider] - <Richard Kimbrough - Last Filed: 03/23/17 18:04> Date of Encounter: 03/23/17 - Constitutional Vitals: Temp Pulse Resp BP Pulse Ox 97.7 F 72 14 111/56 98 03/23/17 14:00 03/23/17 14:00 03/23/17 16:10 03/23/17 14:00 03/23/17 16:10 Internal Medicine: Result - Labs CBC & Chem 7: 03/23/17 03:16 03/23/17 03:16 Labs: Short CBC 03/23/17 03/23/17 Range/Units 00:11 03:16 WBC 7.3 7.1 (4.3-11.1) K/mcL Hgb 10.5 L 10.4 L (12.9-16.9) g/dL Hct 32.4 L 31.2 L (37.5-50.1) % Plt Count 159 147 (140-400) K/mcL Neutrophils # 6.8 6.5 (1.6-8.9) K/mcL BMP 03/23/17 03/23/17 00:11 03:16 Sodium 134 L 137 Potassium 3.8 3.3 L Chloride 102 103 Carbon Dioxide 27 25 BUN 32 H 31 H Creatinine 0.94 1.01 Glucose 114 H 87 Calcium 8.5 L 8.5 L Liver Function 03/23/17 Range/Units 00:11 Total Bilirubin 0.5 (0.3-1.0) mg/dL AST 38 (13-39) Units/L ALT 25 (7-52) Units/L Alkaline Phosphatase 80 (34-104) Units/L Albumin 3.5 (3.5-5.7) g/dL - Impressions Impressions Head CT 03/22/17 22:57 IMPRESSION: Acute sinusitis. Otherwise no acute intracranial disease. D/ / Lex Benites MD / Lex Benites MD Interpreting Provider: Lex Benites MD Echocardiogram Limited Views 03/23/17 00:00 Impressions: LVEF 60-65%. Left Ventricular Wall Motion: Rest Echo Findings All wall segments showed normal motion. Findings: Study Quality * Technically adequate exam. ECG Findings * Normal sinus rhythm. Left Ventricle * LVEF 60-65%. * Mild basal septal hypertophy. Videofluoroscopic Swallow 03/23/17 09:36 IMPRESSION: Swallowing mechanism grossly within normal limits without evidence of aspiration. Please see separate speech pathology report for full discussion of findings and recommendations. D/ / 03/23/2017 12:34:19 Clarke Farooq MD / [facility] Interpreting Provider: Clarke Farooq MD - Attending Attestation I examined this patient and my medical decision-making was reviewed with the Resident Physician. I agree with the documented findings, disposition and treatment plan as described except to the extent set forth below.
--- NOTE | 2017-03-23 11:20 | Cardiology Consult Note ---
<Armando Pablo - Last Filed: 03/23/17 11:33> Date of Encounter: 03/23/17 Time of Encounter: 09:00 Assessment and Plan (1) Sinus bradycardia Current Visit: No Status: Acute Reported to have sinus bradycardia after syncopal event. No rhythm strips or EKG for review during bradycardia. EMS EKG shows HR 64, atrial fibrillation. He is not on AV danya blockade. May be secondary to thyroid disease. TSH 12- hospitalist following. Repeat TTE pending. Avoid AV danya blockers. Continue to monitor. (2) Atrial fibrillation Current Visit: Yes Status: Acute EKG from EMS shows atrial fibrillation. Currently NSR. Avoid AV danya ally due to reported bradycardia. There is concern for CVA/TIA and MRI cannot be completed. Recommend neurology consult to see if they are ok with anticoagulation. CHADS VASc=6 (HTN, age 2, CAD, possible CVA2). AC with NOAc or coumadin would be recommended if ok with neurology. Qualifiers: Atrial fibrillation type: unspecified Qualified Code(s): I48.91 - Unspecified atrial fibrillation (3) Syncope Current Visit: Yes Status: Acute Possibly due to bradycardia although unclear at this time. There is concern for CVA symptoms. CT negative. Continue to monitor. TTE pending. Qualifiers: Syncope type: unspecified Qualified Code(s): R55 - Syncope and collapse (4) CAD (coronary artery disease) Current Visit: No Status: Chronic H/o remote cardiac stent. On asa, plavix. Unknown why he is not on statin or bb previously. Hold bb due to bradycardia. Consider adding statin therapy. Qualifiers: Coronary Disease-Associated Artery/Lesion type: [place] artery [place] vs. transplanted heart: [place] heart Associated angina: without angina Qualified Code(s): I25.10 - Atherosclerotic heart disease of [place] coronary artery without angina pectoris Discussion w patient/family: The assessment and plan as outlined above was discussed with the patient and/or family members who expressed understanding and agreement. All questions were answered. Thank you for involving us in the care of your patient. Please call with any questions. History of Present Illness Consult date: 03/23/17 Requesting physician: Venu Andrea Consult reason: bradycardia Chief complaint: syncopal event, confusion History of present illness: Mr. Berkowitz is a 87 year old male with a past medical history of CAD s/p remote PCI , HTN, and parkisons disease who presented from home after his witnessed him collapsing on the floor. His daughter states his could not wake him up and she called 911. Once EMS arrived they were able to wake him but he was not conversing. He was found to be bradycardic with a heart rate in the 30's and hypotensive. He was also found to have hypothermia with pulse 93.7. He was given atropine in the EMS and ER per reports. HR improved after second dose and no recurrent bradycardia seen. On my exam Mr. Berkowitz is confused. His daughter is at bedside. Prior to this event he was independent and of sound mine. He walks one mile a day without difficulty. Past Med Surg Social Fam HX - Past Medical History Medical history: coronary artery disease, hyperlipidemia, other (parkinson's) Psychiatric history: no psych history - Social History Smoking Status: Never smoker Smokeless Tobacco Status: No Alcohol use: none Drug use: none - Family History Mother History Unknown: Yes Medications and Allergies Aspirin [Lo-Dose Aspirin EC] 81 mg PO DAILY 02/15/17 [History] Carbidopa/Levodopa ER 50/200 [Sinemet ER 50-200 Tab] 1 each PO BID 02/15/17 [ History] Pramipexole Di-HCl [Pramipexole Dihydrochloride] 0.125 mg PO TID 02/15/17 [ History] Simvastatin [Zocor] 40 mg PO HS 02/15/17 [History] Tamsulosin [Flomax] 0.4 mg PO DAILY 02/15/17 [History] Clopidogrel [Plavix] 75 mg PO DAILY #90 tablet 02/17/17 [Rx] amLODIPine [Norvasc] 5 mg PO BID 03/22/17 [History] Losartan Potassium [Cozaar] 100 mg PO DAILY 03/23/17 [History] hydroCHLOROthiazide [Hydrochlorothiazide] 25 mg PO DAILY 03/23/17 [History] 3 Allergy/AdvReac Type Severity Reaction Status Date / Time No Known Allergies Allergy Verified 02/15/17 12:10 All Systems Review: A 10-system review of systems was performed and is negative for pertinent findings except as documented above in the HPI. Physical Examination Vital Signs, Last 4 Hours Temp Pulse Resp BP Pulse Ox 03/23/17 10:22 16 99 02/01/18 09:06 71 14 102/62 96 03/23/17 09:00 97.9 F 72 13 99/56 98 03/23/17 08:31 97 03/23/17 08:00 96.2 F L 82 14 97/57 97 03/23/17 07:45 71 14 102/62 General: Conversant, No Apparent Distress, Other (confused) HEENT: Atraumatic, Normocephaly, Mucus Membranes Moist Neck: No JVD, Normal carotid pulses Cardiac: Reg Rate and Rhythm, Normal S1 and S2, No Murmur Lungs: Normal Breath Sounds, No Wheeze, Rales, Rhonchi Neuro: Alert and responsive, Other (genralized weakness) Abdomen: Soft, Non-Tender Skin: No rashes noted on visualized skin Musculoskeletal: No Chest Wall Tenderness Extremities: No Clubbing, No Cyanosis, Normal Pulses, Other (2+ edema BLE) Results 03/23/17 03:16 03/23/17 03:16 Lab Results 03/23/17 03/23/17 03/23/17 00:11 00:11 00:11 WBC 7.3 Hgb 10.5 L Hct 32.4 L Plt Count 159 Sodium 134 L Potassium 3.8 Chloride 102 Carbon Dioxide 27 BUN 32 H Creatinine 0.94 Glucose 114 H Calcium 8.5 L Magnesium 2.1 Total Bilirubin 0.5 AST 38 ALT 25 Alkaline Phosphatase 80 B-Natriuretic Peptide 122 H 03/23/17 03/23/17 03:16 03:16 WBC 7.1 Hgb 10.4 L Hct 31.2 L Plt Count 147 Sodium 137 Potassium 3.3 L Chloride 103 Carbon Dioxide 25 BUN 31 H Creatinine 1.01 Glucose 87 Calcium 8.5 L Magnesium Total Bilirubin AST ALT Alkaline Phosphatase B-Natriuretic Peptide - Imaging and Cardiology Echo: pending, report reviewed - EKG Interpretation EKG results cardiology: personally reviewed Consult Discharge Plan - Plan Referrals: Jero Hernández DO [Primary Care Provider] - <Sami Flood - Last Filed: 03/23/17 12:25> Date of Encounter: 03/23/17 - Attending Attestation I have personally performed a face to face evaluation on this patient. I have reviewed and agree with the care plan. History and Exam by me shows: Apparent syncope. Noted to have AF on EKG prior to arrival. No bradycardia noted. Would recommend anticoagulation when felt safe. Assessment and Plan Discussion w patient/family: The assessment and plan as outlined above was discussed with the patient and/or family members who expressed understanding and agreement. All questions were answered. Thank you for involving us in the care of your patient. Please call with any questions. History of Present Illness History of present illness: Mr. Berkowitz is a 87 year old male All Systems Review: A 10-system review of systems was performed and is negative for pertinent findings except as documented above in the HPI. Physical Examination Vital Signs, Last 4 Hours Temp Pulse Resp BP Pulse Ox 03/23/17 10:22 16 99 03/23/17 09:06 71 14 102/62 96 03/23/17 09:00 97.9 F 72 13 99/56 98 03/23/17 08:31 97 Results 03/23/17 03:16 03/23/17 03:16 Lab Results 03/23/17 03/23/17 03/23/17 00:11 00:11 00:11 WBC 7.3 Hgb 10.5 L Hct 32.4 L Plt Count 159 Sodium 134 L Potassium 3.8 Chloride 102 Carbon Dioxide 27 BUN 32 H Creatinine 0.94 Glucose 114 H Calcium 8.5 L Magnesium 2.1 Total Bilirubin 0.5 AST 38 ALT 25 Alkaline Phosphatase 80 B-Natriuretic Peptide 122 H 03/23/17 03/23/17 03:16 03:16 WBC 7.1 Hgb 10.4 L Hct 31.2 L Plt Count 147 Sodium 137 Potassium 3.3 L Chloride 103 Carbon Dioxide 25 BUN 31 H Creatinine 1.01 Glucose 87 Calcium 8.5 L Magnesium Total Bilirubin AST ALT Alkaline Phosphatase B-Natriuretic Peptide
[2017-03-23] MEDS: Aspirin Enteric Coated 81 MG Tablet PO SCH (13:40)
[2017-03-23] MEDS: Carbidopa/Levodopa ER 50/200 TABLET PO SCH ×2 (13:47→21:24)
[2017-03-23] MEDS ORDERED: Haloperidol Lactate 5 MG/ML VIAL IVP ONE (21:50)
[2017-03-24] MEDS: Ipratropium/Albuterol Neb 3 ML IH SCH ×4 (03:50→22:47)
[2017-03-24 03:58] LABS: Basophils % 0.2 %; Eosinophils % 0.3 %; Hematocrit 26.9 % (37.5-50.1); Immature Granulocytes % 0.8 % (0-4); Lymphocytes # 1.1 K/mcL (0.6-4.6); Lymphocytes % 7.8 %; Mean Corpuscular HGB Conc 33.5 g/dL (31.6-35.5); Mean Corpuscular Hemoglobin 30.7 pg (28.0-33.3); Mean Corpuscular Volume 91.8 fL (83.0-100.0); Mean Platelet Volume 11.4 fL (9.4-12.4); Monocytes # 0.5 K/mcL (0.0-1.3); Monocytes % 3.6 %; Neutrophils # 12.8 K/mcL (1.6-8.9); Platelet Count 134 K/mcL (140-400); Red Blood Count 2.93 M/mcL (4.19-5.50); Red Cell Distribution Width 13.8 % (11.5-14.5); Segmented Neutrophils % 87.3 %
[2017-03-24 04:11] LABS: BUN/Creatinine Ratio 25 (6-26); Blood Urea Nitrogen 26 mg/dL (8-23); Calcium 8.4 mg/dL (8.6-10.3); Carbon Dioxide 28 mEq/L (23-29); Chloride 102 mEq/L (98-107); Glucose 104 mg/dL (70-105); Osmolality,Calculated 285 (280-300); Potassium 3.8 mEq/L (3.5-5.1); Sodium 135 mEq/L (136-145); eGFR For African Americans > 60 (> 60); eGFR For Non-African Americans > 60 (> 60)
[2017-03-24] MEDS: Ampicillin/Sulbactam 3,000 MG in 0.9 % Sodium Chloride Mini Bag 100 ML IVPB SCH ×3 (05:59→18:20)
--- NOTE | 2017-03-24 10:18 | Neurology - Consult Note ---
Date of Encounter: 03/24/17 Time of Encounter: 10:16 Assessment and Plan (1) Acute encephalopathy Current Visit: Yes Status: Acute Patient presented with syncopal episode and confusion as reported by the patient 's daughter. Patient appears to be awake, alert, and oriented 3 and is able to tell me who the president is however the daughters do not feel that he is back to his baseline. Confusion could be related to underlying toxic/metabolic processes including aspiration pneumonia for which he is being treated. This appears to be improving. Syncopal event is likely related to cardiogenic causes including symptomatic bradycardia, cardiology is following. Patient's constellation of symptoms could be related to TIA/CVA as the patient is certainly at risk for stroke given previous TIAs, newly diagnosed atrial fibrillation as well as hypertension. Unfortunately the patient has metal in his eye from a previous injury so MRI is unable to be obtained. Would recommend carotid imaging for complete workup. Given newly diagnosed atrial fibrillation patient was certainly be a candidate for anticoagulation given his [id number] score of 6. Repeat head CT is pending and if there is no evidence of evolving intracranial hemorrhage we would recommend anticoagulation however will defer final decision to primary team. Patient's Parkinson symptoms appear to be stable. On exam he has mild bradykinesia but minimal rigidity and no resting tremor. Recommend discontinuing mirapex as this can contribute to hallucinations (2) Syncope Current Visit: Yes Status: Acute Qualifiers: Syncope type: unspecified Qualified Code(s): R55 - Syncope and collapse (3) Parkinson disease Current Visit: Yes Status: Chronic (4) Atrial fibrillation Current Visit: Yes Status: Acute Qualifiers: Atrial fibrillation type: unspecified Qualified Code(s): I48.91 - Unspecified atrial fibrillation History of Present Illness Chief complaint: AMS,Syncope HPI: Mr. Berkowitz is a 87 year old male Past Med Surg Social Fam HX - Past Medical History Medical history: coronary artery disease, hyperlipidemia, other (parkinson's) Psychiatric history: no psych history - Social History Smoking Status: Never smoker Smokeless Tobacco Status: No Alcohol use: none Drug use: none - Family History Mother History Unknown: Yes Medications and Allergies Aspirin [Lo-Dose Aspirin EC] 81 mg PO DAILY 02/15/17 [History] Carbidopa/Levodopa ER 50/200 [Sinemet ER 50-200 Tab] 1 each PO BID 12/27/17 [ History] Pramipexole Di-HCl [Pramipexole Dihydrochloride] 0.125 mg PO TID 02/15/17 [ History] Simvastatin [Zocor] 40 mg PO HS 02/15/17 [History] Tamsulosin [Flomax] 0.4 mg PO DAILY 02/15/17 [History] Clopidogrel [Plavix] 75 mg PO DAILY #90 tablet 02/17/17 [Rx] amLODIPine [Norvasc] 5 mg PO BID 03/22/17 [History] Losartan Potassium [Cozaar] 100 mg PO DAILY 03/23/17 [History] hydroCHLOROthiazide [Hydrochlorothiazide] 25 mg PO DAILY 03/23/17 [History] 3 Allergy/AdvReac Type Severity Reaction Status Date / Time No Known Allergies Allergy Verified 02/15/17 12:10 ROS unobtainable: due to mental status All Systems: A 10-system review of systems was performed and is negative for pertinent findings except as documented above in the HPI. Physical Examination - Vital Signs Vital Signs: Initial Vital Signs Temp Pulse Resp BP Pulse Ox 93.7 F L 70 20 114/57 97 03/22/17 22:44 03/22/17 22:44 03/22/17 22:44 03/22/17 22:44 03/22/17 22:44 - Constitutional General appearance: comfortable - Neurologic Sensorimotor examination: intact Detailed motor examination: grossly full strength in all extremities Motor examination - right side: 5/5: deltoids, biceps, triceps, wrist flexion, wrist extension, wastewater process engineer, hip flexors, tibialis Anterior, quadriceps, toe extension (EHL), plantarflexion Motor examination - left side: 5/5: deltoids, biceps, triceps, wrist flexion, wrist extension, hip flexors, wastewater process engineer, quadriceps, tibialis Anterior, toe extension (EHL), plantarflexion Detailed sensory examination: intact Reflexes: Biceps: 2+, Brachioradialis: 2+, Patella: 2+, Achilles: 2+ Mental Status Examination: awake, alert, oriented to person, oriented to place, oriented to time, follows commands appropriately, answers questions appropriately, drowsy Cranial nerve examination: PERRL, EOMI (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), sensory to face intact, no facial asymmetry is present, tongue protrudes midline, no atrophy or facial fasiculations present Cerebellar examination: performs finger to nose and heel to aviles symmetrically without ataxia, dysarthria Results - Laboratory Findings CBC and BMP: 03/24/17 03:43 03/24/17 03:43 Abnormal lab findings: Abnormal lab results WBC 14.6 K/mcL (4.3-11.1) H D 03/24/17 03:43 RBC 2.93 M/mcL (4.19-5.50) L 03/24/17 03:43 Hgb 9.0 g/dL (12.9-16.9) L 03/24/17 03:43 Hct 26.9 % (37.5-50.1) L 03/24/17 03:43 Plt Count 134 K/mcL (140-400) L 03/24/17 03:43 Neutrophils # 12.8 K/mcL (1.6-8.9) H 03/24/17 03:43 Sodium 135 mEq/L (136-145) L 03/24/17 03:43 BUN 26 mg/dL (8-23) H 03/24/17 03:43 POC Glucose 96 (58-89) H 03/23/17 07:54 Calcium 8.4 mg/dL (8.6-10.3) L 03/24/17 03:43 B-Natriuretic Peptide 122 pg/mL (Less than 100) H 03/23/17 00:11 Serum Total Protein 6.2 g/dL (6.4-8.9) L 03/23/17 00:11 Consult Discharge Plan - Plan Referrals: Jero Hernández DO [Primary Care Provider] -
[2017-03-24] MEDS: Aspirin Enteric Coated 81 MG Tablet PO SCH (10:45)
[2017-03-24] MEDS: Carbidopa/Levodopa ER 50/200 TABLET PO SCH ×2 (10:46→22:33)
--- NOTE | 2017-03-24 10:47 | Internal Med Progress Note ---
<Venu Andrea - Last Filed: 03/24/17 14:57> Date of Encounter: 03/24/17 Time of Encounter: 10:43 - Assessment and plan (1) Syncope Current Visit: Yes Status: Acute Assessment and plan: - Syncopal episode at home. Patient altered for interview, daughter at bedside was not present for syncopal event. - Pt was reportedly not feeling well for past week - Possibly secondary to bradycardia secondary to hypothyroidism vs infection - Cardiology following, appreciate recommendations. - CTA negative for PE, mild bilateral pleural effusions. CT abdomen/pelvis showing bilateral renal cyst, possible BPH. No obvious infectious process revealed. Plan - Echo shows EF 65%, valvular abnormalities. no carotid stenotic plaque on US in January. - Cardiology recommendations for bradycardia is to avoid BB for AFib, treat underlying thyroid -Possible CVA etiology, CT head negative in ED. Repeat Head CT ordered today, no evidence of acute process - Neurology consulted, appreciate recommendations. - Continue to monitor (2) Sinus bradycardia Current Visit: Yes Status: Acute Assessment and plan: - Patient was sinus bradycardia on admission with rate in 40s,50s - EKG repeated in ED showing AFib, paroxysmal. - Possible etiology of hypothyroidism. TSH of 12 in [place] ED. Started on synthroid - Other etiology of shock secondary to infection Plan - Cardiology following - Avoid AV node blockers - Continue synthroid, unasyn for possible aspiration PNA - Obtaining CTA chest, CT abdomen/pelvis for evaluation of possible infectious source - Tomas noted to have hematuria, will obtain UA, consult urology. - Continue Tele, close monitoring - Atropine PRN bradycardia (3) Atrial fibrillation Current Visit: Yes Status: Acute Assessment and plan: Currently in NSR, however likely AFib on EKG in ED - WIll avoid AV danya blockade as patient has been bradycardic - Consider anticoagulation once more stable. CHADVASC 6 - Rate in 50s, 60s. Has not required atropine in past 24 hours. - Will hold off on anticoagulation due to Hgb downtrend. most recently 9.0 (4) Hypothermia Current Visit: Yes Status: Resolved Assessment and plan: Resolved. - Continue heating blanket as needed. - Possible secondary to shock, hypothyroid. (5) Hypothyroidism Current Visit: Yes Status: Acute Assessment and plan: - TSH of 12 in [place] ED - Free T4, T4, Free T3 all wnl - Started synthroid 75 on admission. Will continue - Continue to monitor. - Low suspicion for myxedema at this time. (6) CAD (coronary artery disease) Current Visit: Yes Status: Chronic Assessment and plan: EKG reviewed. No chest pain Continue ASA, plavix (7) PNA (pneumonia) Current Visit: Yes Status: Acute Assessment and plan: - Possible aspiration PNA as demonstrated on CXR in ED - Aspiration component given syncopal episode - WBC of elevated today at 14.6, possibly reactive, afebrile. Hypothermic on presentation. VSS. Tolerating 4L O2. - Possible source of AFib precipitating as well as thyroid. - Started on unasyn, day 2. Will continue - Blood cultures pending. (8) Parkinson disease Current Visit: Yes Status: Chronic Assessment and plan: - Continue home meds. (9) Hx of transient ischemic attack (TIA) Current Visit: Yes Status: Acute Assessment and plan: - Suspect source of syncope is more likely related to infectious vs thyroid - AMS secondary to infection vs CVA. - CT head negative in ED, repeat CT also negative for acute process. - Will continue to monitor and continue aspirin and plavix (10) DVT prophylaxis Current Visit: Yes Status: Acute Assessment and plan: SCDs until we are sure of syncope etiology - Time Spent With Patient 25 - 35 minutes - Subjective Interval history: Patient seen and examined at bedside. During time of interview, patient is fast asleep and daughter who is at bedside states that he has been agitated all night and is finally resting. Daughters states that they would like a opthamology consult as patient had been complaining of dark lines across his lower visual serrano before other symptoms started. They state he has not been complaining of anything this morning. - Constitutional Vitals: Temp Pulse Resp BP Pulse Ox 99.5 F 59 14 126/63 98 03/24/17 07:48 03/24/17 07:48 03/24/17 07:48 03/24/17 07:48 03/24/17 07:48 General appearance: Present: A&O X 3, no acute distress, answers questions appropriately Exam: Gen.: Vitals noted. No acute distress. AAOx0, sleeping soundly. Occasional coughing fit. HEENT: PERRL/EOMI, oropharynx clear, Normocephalic, atraumatic, MMM. Mildly poor dentition Cardiac: Irregular, no murmur, +S1/S2 Pulmonary: Expiratory rattles and rales diffusely. equal chest expansion Abdomen: soft, nontender, BS noted, no guarding Extremities: no BLE edema, nontender calf, no cyanosis or clubbing Neuro: A&Ox0. Unable to assess remainder due to mental status. Psych: Unable to assess. Internal Medicine: Result - Labs CBC & Chem 7: 03/24/17 03:43 03/24/17 03:43 Labs: Short CBC 03/24/17 Range/Units 03:43 WBC 14.6 H D (4.3-11.1) K/mcL Hgb 9.0 L (12.9-16.9) g/dL Hct 26.9 L (37.5-50.1) % Plt Count 134 L (140-400) K/mcL Neutrophils # 12.8 H (1.6-8.9) K/mcL BMP 03/24/17 03:43 Sodium 135 L Potassium 3.8 Chloride 102 Carbon Dioxide 28 BUN 26 H Creatinine 1.06 Glucose 104 Calcium 8.4 L - Impressions Impressions Echocardiogram Limited Views 03/23/17 00:00 Impressions: LVEF 60-65%. Left Ventricular Wall Motion: Rest Echo Findings All wall segments showed normal motion. Findings: Study Quality * Technically adequate exam. ECG Findings * Normal sinus rhythm. Left Ventricle * LVEF 60-65%. * Mild basal septal hypertophy. Videofluoroscopic Swallow 03/23/17 09:36 IMPRESSION: Swallowing mechanism grossly within normal limits without evidence of aspiration. Please see separate speech pathology report for full discussion of findings and recommendations. D/ / 03/23/2017 12:34:19 Clarke Farooq MD / [email or web address] Interpreting Provider: Clarke Farooq MD - VTE Documentation of Mechanical Device: Intermittent pneumatic compression device Consult Discharge Plan - Plan Referrals: Jero Hernández DO [Primary Care Provider] - <Richard Kimbrough P - Last Filed: 03/24/17 18:27> Date of Encounter: 03/24/17 - Constitutional Vitals: Temp Pulse Resp BP Pulse Ox 98.5 F 60 18 142/71 98 03/24/17 15:40 03/24/17 15:40 03/24/17 15:52 03/24/17 15:40 03/24/17 15:52 Internal Medicine: Result - Labs CBC & Chem 7: 03/24/17 03:43 03/24/17 03:43 Labs: Short CBC 03/24/17 Range/Units 03:43 WBC 14.6 H D (4.3-11.1) K/mcL Hgb 9.0 L (12.9-16.9) g/dL Hct 26.9 L (37.5-50.1) % Plt Count 134 L (140-400) K/mcL Neutrophils # 12.8 H (1.6-8.9) K/mcL BMP 03/24/17 03:43 Sodium 135 L Potassium 3.8 Chloride 102 Carbon Dioxide 28 BUN 26 H Creatinine 1.06 Glucose 104 Calcium 8.4 L Urine 03/24/17 Range/Units 12:25 Urine Color Yellow (Yellow) Urine Clarity Cloudy A (Clear) Urine pH 7.0 (5.0-8.0) pH Units Ur Specific [place] > 1.030 H (1.010-1.025) Urine Protein Trace (Neg-Trace) mg/dL Urine Glucose (UA) Normal (Normal) mg/dL - Impressions Impressions Chest CTA 03/24/17 09:29 IMPRESSION: 1. No pulmonary embolus is identified. 2. Small bilateral pleural effusions, pulmonary edema with interlobular septal thickening would be most suggestive of fluid overload/CHF. 3. Additionally, there is dilation of the proximal portion of the esophagus with evidence of food stuff seen in the mid portion. Given this finding, superimposed aspiration/aspiration pneumonia should be a diagnostic consideration. 4. An esophagram or direct visualization of the esophagus should be considered to assess for any focal strictures. D/ / 03/24/2017 13:08:34 Georgi gonzalez Interpreting Provider: Georgi Wall Abdomen/Pelvis CT 03/24/17 09:30 IMPRESSION: 1. Evaluation of the urinary bladder is limited as it is decompressed by Tomas catheter. Diffuse urinary bladder wall thickening and trabeculation is noted and underlying mass lesion cannot be excluded. 2. Rather marked prostate gland enlargement with nonspecific areas of hypoattenuation bilateral which can be seen with mass lesions or infectious/inflammatory processes. 3. Bilateral renal cysts. 4. Calcific atherosclerotic disease aorta. 5. Diverticulosis coli without CT evidence of acute diverticulitis. 6. Small volume bilateral pleural effusion with bibasilar consolidation. D/ / Loi Nguyen / Loi Nguyen Interpreting Provider: Loi Nguyen Head CT 03/24/17 09:30 IMPRESSION: 1. No acute intracranial abnormality. 2. Paranasal sinus mucosal thickening. Please correlate with clinical symptoms of sinus disease. D/ / 03/24/2017 13:00:23 Kike Flores MD / tatiana Interpreting Provider: Kike Flores MD - Attending Attestation I examined this patient and my medical decision-making was reviewed with the Resident Physician. I agree with the documented findings, disposition and treatment plan as described except to the extent set forth below. 87/male Admitted with syncopal episode with hypothermia/symptomatic bradycardia. Noted that patient had advanced Parkinson's disease. CT head: Initial/repeat in 36 hours: Negative for stroke. Workup for TIA: Within acceptable range. Presently has a gross hematuria that is likely secondary to the enlarged prostate. Elevated TSH likely secondary to subclinical hypothyroidism. Possibility of underlying pneumonia cannot be excluded. In view of the gross hematuria, anticoagulation is contraindicated. Plan: Will continue to treat pneumonia. Hold anticoagulation for underlying atrial fibrillation. Continue to encourage more water intake. Appreciate recommendations from urology/nephrology/ophthalmology/cardiology Had a family meeting at 5 PM. Explained all above at length. All questions answered
--- NOTE | 2017-03-24 12:08 | Cardiology Progress Note ---
Date of Encounter: 03/24/17 Time of Encounter: 12:06 Assessment and Plan (1) Sinus bradycardia Current Visit: Yes Status: Acute Reported to have sinus bradycardia with HR in the 30's after syncopal event. No rhythm strips or EKG for review that show bradycardia. EMS EKG shows HR 64, atrial fibrillation. 24 hour telemetry review shows AVg HR 64. There was three 2 second pauses. HR as low as 25 bpm noted at 3:36 pm yesterday for 6 seconds. Daughter noted patient had decreased LOC at that time. He is not on AV danya blockade. TSH 12- hospitalist following. T3 and T4 normal. Discussed with Dr. Kimbrough. Likely subclinical. Recommend re-evaluation in a few weeks. Repeat TTE shows EF 65%. TTE 02/15/17- EF 60-65%. Mild MT, mild AR. Avoid AV danya blockers. Continue to monitor. Pending repeat CT to r/o CVA. Neurology consulted. May need PPM in the future. (2) Atrial fibrillation Current Visit: Yes Status: Acute EKG from EMS shows atrial fibrillation. Currently NSR. Avoid AV danya ally due to reported bradycardia. No recurrent afib seen. There is concern for CVA/TIA and MRI cannot be completed. Recommend neurology consult to see if they are ok with anticoagulation. CHADS VASc=6 (HTN, age 2, CAD, possible CVA2). AC with NOAc or coumadin would be recommended if ok with neurology and hematuria resolves. Repeat CT pending. Noted to have hematuria today. Hgb decreased at 9.0. states that he had dark urine at home. Urology consulted. Will hold off on AC at this time. Qualifiers: Atrial fibrillation type: unspecified Qualified Code(s): I48.91 - Unspecified atrial fibrillation (3) Syncope Current Visit: Yes Status: Acute Possibly due to bradycardia although unclear at this time. There is concern for CVA symptoms. CT negative. Neurology consulted. Continue to monitor. TTE shows preserved EF. TTE 02/15/17 Showed EF 60-65%, mild mR, Mild AR. We will follow with you. Qualifiers: Syncope type: unspecified Qualified Code(s): R55 - Syncope and collapse (4) CAD (coronary artery disease) Current Visit: Yes Status: Chronic H/o remote cardiac stent. On asa, plavix. Unknown why he is not on statin or bb previously. Hold bb due to bradycardia. Consider adding statin therapy. Qualifiers: Coronary Disease-Associated Artery/Lesion type: [place] artery [place] vs. transplanted heart: [place] heart Associated angina: without angina Qualified Code(s): I25.10 - Atherosclerotic heart disease of [place] coronary artery without angina pectoris Discussion w patient/family: The assessment and plan as outlined above was discussed with the patient and/or family members who expressed understanding and agreement. All questions were answered. Thank you for involving us in the care of your patient. Please call with any questions. Subjective Principal diagnosis: bradycardia, syncope Interval history: Mr. Berkowitz denies chest pain or SOB. Denies dizziness. Daughter states that he was eating lunch around 3:00 yesterday when he suddenly closed his eyes, moaned, and became very pale. Symptoms lasted only for a few seconds. Objective Vital Signs, Last 4 Hours Temp Pulse Resp BP Pulse Ox 03/24/17 11:34 99.2 F 70 14 138/60 97 03/24/17 11:22 98 General: Conversant, No Apparent Distress, Other (less confused today) HEENT: Atraumatic, Normocephaly, Mucus Membranes Moist Neck: No JVD, Normal carotid pulses Cardiac: Reg Rate and Rhythm, Normal S1 and S2, No Murmur Lungs: Normal Breath Sounds, No Wheeze, Rales, Rhonchi Neuro: Alert and responsive, No focal deficits noted Abdomen: Soft, Non-Tender Skin: No rashes noted on visualized skin Musculoskeletal: No Chest Wall Tenderness Extremities: No Clubbing, No Cyanosis, Normal Pulses, Other (2+ BLE edema) Results 03/24/17 03:43 03/24/17 03:43 Lab Results 03/24/17 03/24/17 03:43 03:43 WBC 14.6 H D Hgb 9.0 L Hct 26.9 L Plt Count 134 L Sodium 135 L Potassium 3.8 Chloride 102 Carbon Dioxide 28 BUN 26 H Creatinine 1.06 Glucose 104 Calcium 8.4 L - Imaging and Cardiology Echo: report reviewed - EKG Interpretation EKG results cardiology: personally reviewed - VTE Documentation of Mechanical Device: Intermittent pneumatic compression device Consult Discharge Plan - Plan Referrals: Jero Hernández DO [Primary Care Provider] -
[2017-03-24 12:46] LABS: Bilirubin,Urine Negative (Negative); Blood,Urine Large (Negative); Clarity,Urine Cloudy (Clear); Color,Urine Yellow (Yellow); Glucose,Urine (UA) Normal (Normal); Ketones,Urine Negative (Negative); Leukocyte Esterase,Urine Small (Negative); Nitrite,Urine Negative (Negative); Protein,Urine Trace mg/dL (Neg-Trace); Specific Gravity,Urine > 1.030 (1.010-1.025); Urobilinogen,Urine Normal (Normal)
[2017-03-24 12:49] LABS: Bacteria,Urine None Seen per hpf (None-Few); Hyaline Casts,Urine None Seen per lpf (None-Few); RBC,Urine TNTC per hpf (0-3); Squamous Epithelial Cell,Urine Many per lpf (None-Few); WBC,Urine 15-30 per hpf (0-3)
--- NOTE | 2017-03-24 14:28 | Internal Medicine Consult Note ---
Date of Encounter: 03/24/17 Time of Encounter: 14:21 Internal Medicine - CN: HPI - Data of Consult Consult date: 03/24/17 Requesting Physician: Sergio Carrillo MD - Consult Narrative History of present illness: Mr. Berkowitz is a 87 year old male History patient reports a visual disturbance with a sideways "snowstorm" in his vision otherwise. This reportedly happened 2 days ago. The following morning the patient had a fall. Patient has a history of reconstructive surgery of the right face involving the right lower eyelid. He also has a prosthesis for the left eye. 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 The patient also reports being bothered by excessive watering of the right eye. Reportedly in his reconstructive surgery of the right lower eyelid he lost his tear duct. Examination revealed visual acuity of 20/25-2 in the right eye with correction ( near equivalent Snellen). Confrontation visual serrano revealed constriction of the inferonasal visual field in the right eye and the visual serrano were otherwise normal. Extraocular motility testing revealed full excursion of the right eye to all cardinal positions of gaze. The left eye had a prosthesis. The eyelids were normal in the left eye. In the right eye the right lower eyelid had madarosis (loss of eyelashes). The anterior chamber was deep. The conjunctiva was normal. The cornea was clear. The iris was normal. The intraocular pressure via digital palpation revealed an unremarkable pressure, soft, estimated at 20 mmHg. The right eye was dilated with 1% tropicamide and 2 -1/2% phenylephrine drops. Further examination after dilation revealed in the right eye a posterior chamber intraocular lens with a clear or open posterior capsule. The vitreous was clear. The optic nerve head had moderate cupping but was otherwise unremarkable with a cupped to disc ratio of approximately 0.55. The macula had mild drusen. The blood vessels were normal. The posterior pole was otherwise unremarkable. 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 The remainder of the examination was unremarkable Impression: 1. Transient visual disturbance of the right eye. This may be due to a temporary interruption of the blood supply to the right eye or the occipital lobe. 2. Pseudophakia of the right eye 3. Prosthesis of the left eye 4. Epiphora of the right eye. This is likely due to loss of posterior duct of the right eye associated with reconstructive surgery on the right lower eyelid and face. Dry eye syndrome may also contribute to this. I would recommend that the patient use artificial tears as needed. Recommendation: 1. Carotid and vertebral artery Doppler studies would be recommended if not already done. Patient should continue with his daily Plavix and aspirin. 2. Please contact me if the patient has any further reduction or problems with his vision. I would be happy to see him on an outpatient basis if needed. Past Med Surg Social Fam HX - Past Medical History Medical history: coronary artery disease, hyperlipidemia, other (parkinson's) Psychiatric history: no psych history - Social History Smoking Status: Never smoker Smokeless Tobacco Status: No Alcohol use: none Drug use: none - Family History Mother History Unknown: Yes Internal Medicine - CN: Meds Aspirin [Lo-Dose Aspirin EC] 81 mg PO DAILY 02/15/17 [History] Carbidopa/Levodopa ER 50/200 [Sinemet ER 50-200 Tab] 1 each PO BID 02/15/17 [ History] Pramipexole Di-HCl [Pramipexole Dihydrochloride] 0.125 mg PO TID 02/15/17 [ History] Simvastatin [Zocor] 40 mg PO HS 02/15/17 [History] Tamsulosin [Flomax] 0.4 mg PO DAILY 02/15/17 [History] Clopidogrel [Plavix] 75 mg PO DAILY #90 tablet 02/17/17 [Rx] amLODIPine [Norvasc] 5 mg PO BID 03/22/17 [History] Losartan Potassium [Cozaar] 100 mg PO DAILY 03/23/17 [History] hydroCHLOROthiazide [Hydrochlorothiazide] 25 mg PO DAILY 03/23/17 [History] 3 Allergy/AdvReac Type Severity Reaction Status Date / Time No Known Allergies Allergy Verified 02/15/17 12:10 Internal Medicine - CN: Exam - Constitutional Vitals: Temp Pulse Resp BP Pulse Ox 99.2 F 70 14 138/60 97 03/24/17 11:34 03/24/17 11:34 03/24/17 11:34 03/24/17 11:34 03/24/17 11:34 Internal Medicine - CN: Reslt - Labs CBC & Chem 7: 03/24/17 03:43 03/24/17 03:43 Labs: Short CBC 03/24/17 Range/Units 03:43 WBC 14.6 H D (4.3-11.1) K/mcL Hgb 9.0 L (12.9-16.9) g/dL Hct 26.9 L (37.5-50.1) % Plt Count 134 L (140-400) K/mcL Neutrophils # 12.8 H (1.6-8.9) K/mcL BMP 03/24/17 03:43 Sodium 135 L Potassium 3.8 Chloride 102 Carbon Dioxide 28 BUN 26 H Creatinine 1.06 Glucose 104 Calcium 8.4 L Urine 03/24/17 Range/Units 12:25 Urine Color Yellow (Yellow) Urine Clarity Cloudy A (Clear) Urine pH 7.0 (5.0-8.0) pH Units Ur Specific [place] > 1.030 H (1.010-1.025) Urine Protein Trace (Neg-Trace) mg/dL Urine Glucose (UA) Normal (Normal) mg/dL - Impressions Impressions Chest CTA 03/24/17 09:29 IMPRESSION: 1. No pulmonary embolus is identified. 2. Small bilateral pleural effusions, pulmonary edema with interlobular septal thickening would be most suggestive of fluid overload/CHF. 3. Additionally, there is dilation of the proximal portion of the esophagus with evidence of food stuff seen in the mid portion. Given this finding, superimposed aspiration/aspiration pneumonia should be a diagnostic consideration. 4. An esophagram or direct visualization of the esophagus should be considered to assess for any focal strictures. D/ / 03/24/2017 13:08:34 Georgi Wall / carlos Interpreting Provider: Georgi Wall Abdomen/Pelvis CT 03/24/17 09:30 IMPRESSION: 1. Evaluation of the urinary bladder is limited as it is decompressed by Tomas catheter. Diffuse urinary bladder wall thickening and trabeculation is noted and underlying mass lesion cannot be excluded. 2. Rather marked prostate gland enlargement with nonspecific areas of hypoattenuation bilateral which can be seen with mass lesions or infectious/inflammatory processes. 3. Bilateral renal cysts. 4. Calcific atherosclerotic disease aorta. 5. Diverticulosis coli without CT evidence of acute diverticulitis. 6. Small volume bilateral pleural effusion with bibasilar consolidation. D/ / Loi Nguyen / Loi Nguyen Interpreting Provider: Loi Nguyen Head CT 03/24/17 09:30 IMPRESSION: 1. No acute intracranial abnormality. 2. Paranasal sinus mucosal thickening. Please correlate with clinical symptoms of sinus disease. D/ /24/2017 13:00:23 Kike Flores MD / bcarter Interpreting Provider: Kike Flores MD Consult Discharge Plan - Plan Referrals: Jero Hernández DO [Primary Care Provider] -
--- NOTE | 2017-03-24 20:14 | Urology - Consult Note ---
Date of Encounter: 03/24/17 Time of Encounter: 20:11 - Assessment and Plan (1) BPH loc w urin obs/LUTS Current Visit: Yes Status: Acute Assessment and plan: large BPH on CT. start finasteride. likely cause of GH. (2) Gross hematuria Current Visit: Yes Status: Acute Assessment and plan: I suspect the gross hematuria was secondary to cath trauma and significant BPH. I reviewed the CT scan and he has a very large prostate with bladder wall thickening. no obvious tumors, stones, hydronephosis. start finasteride OK to remove cath when urine clears completely. This can be done at rehab/ senior living if urine remains clear with voiding then ok to consider anticoagulation. I recommend holding all anticoagulation now if possible bc increased risk of prostate rebleed. Urology CN:AEDLA Consult date: 03/24/17 Reason for consult Urology: Gross Hematuria History of present illness: 87 yo male admitted with afib. after cath placement significant GH. hx of BPH but no previous surgery. reports hesitency for number of years. pt with advancing parkinsons. hematuria has started to clear the day. no clot retention. Past Med Surg Social Fam HX - Past Medical History Medical history: coronary artery disease, hyperlipidemia, other (parkinson's) Psychiatric history: no psych history - Social History Smoking Status: Never smoker Smokeless Tobacco Status: No Alcohol use: none Drug use: none - Family History Mother History Unknown: Yes Medications and Allergies Aspirin [Lo-Dose Aspirin EC] 81 mg PO DAILY 02/15/17 [History] Carbidopa/Levodopa ER 50/200 [Sinemet ER 50-200 Tab] 1 each PO BID 02/15/17 [ History] Pramipexole Di-HCl [Pramipexole Dihydrochloride] 0.125 mg PO TID 02/15/17 [ History] Simvastatin [Zocor] 40 mg PO HS 02/15/17 [History] Tamsulosin [Flomax] 0.4 mg PO DAILY 02/15/17 [History] Clopidogrel [Plavix] 75 mg PO DAILY #90 tablet 02/17/17 [Rx] amLODIPine [Norvasc] 5 mg PO BID 03/22/17 [History] Losartan Potassium [Cozaar] 100 mg PO DAILY 03/23/17 [History] hydroCHLOROthiazide [Hydrochlorothiazide] 25 mg PO DAILY 03/23/17 [History] 3 Allergy/AdvReac Type Severity Reaction Status Date / Time No Known Allergies Allergy Verified 02/15/17 12:10 Review of Systems - Constitutional fatigue, no fever(s) - EENT Nose, mouth and throat: no dizziness - Cardiovascular no chest pain - Respiratory no cough - Gastrointestinal no abdominal pain - Genitourinary difficulty urinating, hematuria - Musculoskeletal back pain - Integumentary no erythema - Neurological no confusion - Psychiatric no anxiety - Hematologic/Lymphatic no easy bleeding - Allergic/Immunologic no throat swelling Exam Initial Vital Signs Temp Pulse Resp BP Pulse Ox 93.7 F L 70 20 114/57 97 03/22/17 22:44 03/22/17 22:44 03/22/17 22:44 03/22/17 22:44 03/22/17 22:44 - General physical appearance Present: no distress, chronically ill - Eyes Present: PERRL, conjunctiva is clear - ENT Present: normal nares - Neck Present: no masses, no lymphadenopathy - Respiratory Present: normal respiratory effort - Cardiovascular Cardiovascular exam IM: RRR - Abdomen Abdomen: Present: soft. Absent: masses, suprapubic tenderness - Integumentary Present: no rash - Neurologic Absent: disoriented - Additional Findings velazco cath with light hematuria in tubing. no clots. Urology Results - Labs 03/24/17 03:43 03/24/17 03:43 Abnormal lab results WBC 14.6 K/mcL (4.3-11.1) H D 03/24/17 03:43 RBC 2.93 M/mcL (4.19-5.50) L 03/24/17 03:43 Hgb 9.0 g/dL (12.9-16.9) L 03/24/17 03:43 Hct 26.9 % (37.5-50.1) L 03/24/17 03:43 Plt Count 134 K/mcL (140-400) L 03/24/17 03:43 Neutrophils # 12.8 K/mcL (1.6-8.9) H 03/24/17 03:43 Sodium 135 mEq/L (136-145) L 03/24/17 03:43 BUN 26 mg/dL (8-23) H 03/24/17 03:43 POC Glucose 96 (58-89) H 03/23/17 07:54 Calcium 8.4 mg/dL (8.6-10.3) L 03/24/17 03:43 B-Natriuretic Peptide 122 pg/mL (Less than 100) H 03/23/17 00:11 Serum Total Protein 6.2 g/dL (6.4-8.9) L 03/23/17 00:11 Urine Clarity Cloudy (Clear) A 03/24/17 12:25 Ur Specific [place] > 1.030 (1.010-1.025) H 03/24/17 12:25 Urine Blood Large (Negative) H 03/24/17 12:25 Ur Leukocyte Esterase Small (Negative) H 03/24/17 12:25 Urine Microscopic RBC TNTC per hpf (0-3) H 03/24/17 12:25 Urine Microscopic WBC 15-30 per hpf (0-3) H 03/24/17 12:25 Ur Squamous Epith Cells Many per lpf (None-Few) H 03/24/17 12:25 Diabetes panel 03/24/17 Range/Units 03:43 Sodium 135 L (136-145) mEq/L Potassium 3.8 (3.5-5.1) mEq/L Chloride 102 (98-107) mEq/L Carbon Dioxide 28 (23-29) mEq/L BUN 26 H (8-23) mg/dL Creatinine 1.06 (0.70-1.30) mg/dL Glucose 104 (70-105) mg/dL Calcium 8.4 L (8.6-10.3) mg/dL Calcium panel 03/24/17 Range/Units 03:43 Calcium 8.4 L (8.6-10.3) mg/dL Pituitary panel 03/24/17 Range/Units 03:43 Sodium 135 L (136-145) mEq/L Potassium 3.8 (3.5-5.1) mEq/L Chloride 102 (98-107) mEq/L Carbon Dioxide 28 (23-29) mEq/L BUN 26 H (8-23) mg/dL Creatinine 1.06 (0.70-1.30) mg/dL Glucose 104 (70-105) mg/dL Calcium 8.4 L (8.6-10.3) mg/dL Adrenal panel 03/24/17 Range/Units 03:43 Sodium 135 L (136-145) mEq/L Potassium 3.8 (3.5-5.1) mEq/L Chloride 102 (98-107) mEq/L Carbon Dioxide 28 (23-29) mEq/L BUN 26 H (8-23) mg/dL Creatinine 1.06 (0.70-1.30) mg/dL Glucose 104 (70-105) mg/dL Calcium 8.4 L (8.6-10.3) mg/dL All other labs normal. Consult Discharge Plan - Plan Referrals: Jero Hernández DO [Primary Care Provider] -
[2017-03-25] MEDS: Ampicillin/Sulbactam 3,000 MG in 0.9 % Sodium Chloride Mini Bag 100 ML IVPB SCH ×5 (00:13→23:27)
[2017-03-25] MEDS: Ipratropium/Albuterol Neb 3 ML IH SCH ×4 (03:54→21:37)
[2017-03-25 04:44] LABS: Basophils % 0.2 %; Eosinophils # 0.1 K/mcL (0.0-0.6); Eosinophils % 0.7 %; Hematocrit 26.6 % (37.5-50.1); Hemoglobin 8.8 g/dL (12.9-16.9); Immature Granulocytes % 0.8 % (0-4); Lymphocytes # 1.6 K/mcL (0.6-4.6); Lymphocytes % 12.7 %; Mean Corpuscular HGB Conc 33.1 g/dL (31.6-35.5); Mean Corpuscular Hemoglobin 30.3 pg (28.0-33.3); Mean Corpuscular Volume 91.7 fL (83.0-100.0); Mean Platelet Volume 11.3 fL (9.4-12.4); Monocytes # 0.7 K/mcL (0.0-1.3); Monocytes % 5.8 %; Platelet Count 134 K/mcL (140-400); Red Cell Distribution Width 14.2 % (11.5-14.5); Segmented Neutrophils % 79.8 %
[2017-03-25 05:02] LABS: BUN/Creatinine Ratio 23 (6-26); Blood Urea Nitrogen 23 mg/dL (8-23); Calcium 8.4 mg/dL (8.6-10.3); Carbon Dioxide 28 mEq/L (23-29); Chloride 103 mEq/L (98-107); Glucose 119 mg/dL (70-105); Osmolality,Calculated 285 (280-300); Potassium 3.9 mEq/L (3.5-5.1); Sodium 135 mEq/L (136-145); eGFR For African Americans > 60 (> 60); eGFR For Non-African Americans > 60 (> 60)
--- NOTE | 2017-03-25 07:38 | Urology Progress Note ---
Date of Encounter: 03/25/17 Time of Encounter: 07:34 - Assessment and Plan (1) BPH loc w urin obs/LUTS Current Visit: Yes Status: Acute (2) Gross hematuria Current Visit: Yes Status: Acute Assessment and plan: some increase in hematuria overnight. hold plavix and ASA and I feel the risk for bleeding is higher than risk for cardiac event. will watch this weekend. if hematuria worsens, may need to place [address] cath and start CBI. ok to observe for now. Progress Note Subjective: no new complaints Narrative: some increase in hematuria overnight. no clotting. Objective Initial Vital Signs Temp Pulse Resp BP Pulse Ox 93.7 F L 70 20 114/57 97 03/22/17 22:44 03/22/17 22:44 03/22/17 22:44 03/22/17 22:44 03/22/17 22:44 - General physical appearance Present: no distress, chronically ill - Additional Exam velazco with transparent pinkish/red urine. - Labs 03/25/17 04:10 03/25/17 04:10 Diabetes panel 03/25/17 Range/Units 04:10 Sodium 135 L (136-145) mEq/L Potassium 3.9 (3.5-5.1) mEq/L Chloride 103 (98-107) mEq/L Carbon Dioxide 28 (23-29) mEq/L BUN 23 (8-23) mg/dL Creatinine 1.02 (0.70-1.30) mg/dL Glucose 119 H (70-105) mg/dL Calcium 8.4 L (8.6-10.3) mg/dL Calcium panel 03/25/17 Range/Units 04:10 Calcium 8.4 L (8.6-10.3) mg/dL Pituitary panel 03/25/17 Range/Units 04:10 Sodium 135 L (136-145) mEq/L Potassium 3.9 (3.5-5.1) mEq/L Chloride 103 (98-107) mEq/L Carbon Dioxide 28 (23-29) mEq/L BUN 23 (8-23) mg/dL Creatinine 1.02 (0.70-1.30) mg/dL Glucose 119 H (70-105) mg/dL Calcium 8.4 L (8.6-10.3) mg/dL Adrenal panel 03/25/17 Range/Units 04:10 Sodium 135 L (136-145) mEq/L Potassium 3.9 (3.5-5.1) mEq/L Chloride 103 (98-107) mEq/L Carbon Dioxide 28 (23-29) mEq/L BUN 23 (8-23) mg/dL Creatinine 1.02 (0.70-1.30) mg/dL Glucose 119 H (70-105) mg/dL Calcium 8.4 L (8.6-10.3) mg/dL - VTE Documentation of Mechanical Device: Intermittent pneumatic compression device Consult Discharge Plan - Plan Referrals: Jero Hernández DO [Primary Care Provider] -
[2017-03-25] MEDS: Carbidopa/Levodopa ER 50/200 TABLET PO SCH ×2 (09:17→20:19)
[2017-03-25] MEDS: Finasteride 5 MG TABLET PO SCH (09:17)
--- NOTE | 2017-03-25 13:33 | Cardiology Progress Note ---
Date of Encounter: 03/25/17 Time of Encounter: 13:32 Assessment and Plan (1) Sinus bradycardia Current Visit: Yes Status: Acute Reported to have sinus bradycardia with HR in the 30's after syncopal event. No rhythm strips or EKG for review that show bradycardia. EMS EKG shows HR 64, atrial fibrillation. 24 hour telemetry review shows AVg HR 68, longest pause 2.1 seconds. HR as low as 27 bpm noted at 0817 this AM. No family at bedside. Pt denies dizziness or lightheadedness overnight. He is not on AV danya blockade. TSH 12- hospitalist following. T3 and T4 normal. Discussed with Dr. Kimbrough. Likely subclinical. Recommend re-evaluation in a few weeks. Repeat TTE shows EF 65%. TTE 02/15/17- EF 60-65%. Mild MT, mild AR. Avoid AV danya blockers. Continue to monitor overnight to determine if PPM is warranted. (2) CAD (coronary artery disease) Current Visit: Yes Status: Chronic H/o remote cardiac stent. Was on asa, plavix, but these have been stopped due to hematuria and anemia. Unknown why he is not on statin or bb previously. Hold bb due to bradycardia. Consider adding statin therapy. Qualifiers: Coronary Disease-Associated Artery/Lesion type: [place] artery [place] vs. transplanted heart: [place] heart Associated angina: without angina Qualified Code(s): I25.10 - Atherosclerotic heart disease of [place] coronary artery without angina pectoris (3) Atrial fibrillation Current Visit: Yes Status: Acute EKG from EMS shows atrial fibrillation. Currently NSR. Avoid AV danya ally due to reported bradycardia. No recurrent afib seen. There was concern for CVA/TIA and MRI cannot be completed. Recommend neurology consult to see if they are ok with anticoagulation. CHADS VASc=6 (HTN, age 2, CAD, possible CVA2). AC with NOAc or coumadin would be recommended if ok with neurology and hematuria resolves. Hgb decreased at 8.8. states that he had dark urine at home. Urology following. Will hold off on AC at this time. Qualifiers: Atrial fibrillation type: paroxysmal Qualified Code(s): I48.0 - Paroxysmal atrial fibrillation Discussion w patient/family: The assessment and plan as outlined above was discussed with the patient and/or family members who expressed understanding and agreement. All questions were answered. Thank you for involving us in the care of your patient. Please call with any questions. I will discuss all the above with Dr. Sami Flood and make changes as necessary. Subjective Principal diagnosis: bradycardia, syncope Interval history: Pt denies dizziness or lightheadedness overnight. No acute cardiac complaints. Objective Vital Signs, Last 4 Hours Temp Pulse Resp BP Pulse Ox 03/25/17 11:41 99.5 F 78 145/63 03/25/17 10:57 18 96 Vital Signs Temp Pulse Resp BP Pulse Ox 03/25/17 11:41 99.5 F 78 145/63 03/25/17 10:57 18 96 03/25/17 06:00 99.5 F 66 17 143/69 95 03/25/17 04:11 100.1 F H 69 17 147/70 92 03/25/17 03:54 20 94 03/24/17 19:49 99.2 F 69 20 130/66 98 03/24/17 15:52 18 98 03/24/17 15:40 98.5 F 60 11 142/71 98 Intake and Output 03/24/17 03/25/17 03/25/17 23:59 07:59 15:59 Intake Total 100 / 100 100 / 100 340 / 340 Output Total 250 / 250 400 / 400 250 / 250 Balance -150 / -150 -300 / -300 90 / 90 Intake: IV Fluids 100 / 100 100 / 100 100 / 100 Unasyn 3,000 MG In 0.9 % Sodium 100 / 100 100 / 100 100 / 100 Chloride (Mini-Bag +) 100 ML @ 200 mls/hr IVPB Q6HR [facility] Rx#: [id number] Oral 0 / 0 240 / 240 Output: Catheter 250 / 250 400 / 400 250 / 250 Other: Meal Breakfast Percent of Meal Consumed 90% Stool Size Moderate Moderate Stool Consistency formed soft Stool Characteristics Normal for Patient Stool Color Brown Brown # Bowel Movement Diapers 1 Weight 87.1 kg 88 kg Patient Weight 03/25/17 23:59 Weight 88 kg General: Conversant, No Apparent Distress HEENT: Atraumatic, Normocephaly, Mucus Membranes Moist Neck: No JVD, Normal carotid pulses Cardiac: Reg Rate and Rhythm, Normal S1 and S2, No Murmur Lungs: Normal Breath Sounds, No Wheeze, Rales, Rhonchi Neuro: Alert and responsive, No focal deficits noted Abdomen: Soft, Non-Tender Skin: No rashes noted on visualized skin Musculoskeletal: No Chest Wall Tenderness Extremities: Other (mild LE edema) Results 03/25/17 04:10 03/25/17 04:10 Lab Results 03/25/17 03/25/17 04:10 04:10 WBC 12.6 H Hgb 8.8 L Hct 26.6 L Plt Count 134 L Sodium 135 L Potassium 3.9 Chloride 103 Carbon Dioxide 28 BUN 23 Creatinine 1.02 Glucose 119 H Calcium 8.4 L Short CBC 03/25/17 Range/Units 04:10 WBC 12.6 H (4.3-11.1) K/mcL Hgb 8.8 L (12.9-16.9) g/dL Hct 26.6 L (37.5-50.1) % Plt Count 134 L (140-400) K/mcL Neutrophils # 10.0 H (1.6-8.9) K/mcL BMP 03/25/17 Range/Units 04:10 Sodium 135 L (136-145) mEq/L Potassium 3.9 (3.5-5.1) mEq/L Chloride 103 (98-107) mEq/L Carbon Dioxide 28 (23-29) mEq/L BUN 23 (8-23) mg/dL Creatinine 1.02 (0.70-1.30) mg/dL Glucose 119 H (70-105) mg/dL Calcium 8.4 L (8.6-10.3) mg/dL Impressions Head CT 03/24/17 09:30 IMPRESSION: 1. No acute intracranial abnormality. 2. Paranasal sinus mucosal thickening. Please correlate with clinical symptoms of sinus disease. D/ 03/24/2017 13:00:23 Kike Flores MD / bcarter Interpreting Provider: Kike Flores MD Active Medications Albuterol/Ipratropium (Duoneb) 3 ml IH [id number] MARYLOU Stop: 09/22/17 04:01 Last Admin: 03/25/17 10:55 Dose: 3 ml Albuterol/Ipratropium (Duoneb) 3 ml IH [id number] PRN PRN Reason: Shortness Of Breath/Wheezing Stop: 09/21/17 23:14 Atropine Sulfate (Atropine) 0.5 mg IVP Q2H PRN PRN Reason: Heart Rate-Low Stop: 09/21/17 23:31 Carbidopa/Levodopa (Sinemet Er 50-200 Tab) 1 each PO BID MARYLOU Stop: 09/22/17 09:01 Last Admin: 03/25/17 09:17 Dose: 1 each Finasteride (Proscar) 5 mg PO DAILY MARYLOU PRN Reason: Protocol Stop: 09/24/17 09:01 Last Admin: 03/25/17 09:17 Dose: 5 mg Ampicillin Sodium/Sulbactam Sodium 3,000 mg/ Sodium Chloride 100 mls @ 200 mls/ hr IVPB Q6HR MARYLOU Stop: 09/22/17 00:01 Last Admin: 03/25/17 12:46 Dose: 200 mls/hr Levothyroxine Sodium (Synthroid) 75 mcg PO DAILY@0630 [facility] Stop: 09/22/17 06:31 Last Admin: 03/25/17 07:37 Dose: 75 mcg Naloxone HCl (Narcan) 0.4 mg IVP Q2MIN PRN PRN Reason: SEE COMMENTS Stop: 09/21/17 22:59 Tamsulosin HCl (Flomax) 0.4 mg PO DAILY MARYLOU PRN Reason: Protocol Stop: 09/22/17 09:01 Last Admin: 03/25/17 09:17 Dose: 0.4 mg - Imaging and Cardiology Echo: report reviewed - EKG Interpretation EKG results cardiology: other (24 hr tele AVG HR 68, episodes of Wenckebach noted. Lowest HR 27 bpm.) - VTE Documentation of Mechanical Device: Intermittent pneumatic compression device Consult Discharge Plan - Plan Referrals: Jero Hernández DO [Primary Care Provider] -
--- NOTE | 2017-03-25 13:42 | Neurology Progress Note ---
Date of Encounter: 03/25/17 Time of Encounter: 13:40 Assessment and Plan (1) Parkinson disease Current Visit: Yes Status: Chronic Stable continue current dopa therapy no changes (2) Acute encephalopathy Current Visit: Yes Status: Acute Improved. No evidence of new MEDICAL COLLECTIONS pathology. Please continue medical and supportive care. Will sign off at this time, please call if any questions. Patient already has an appointment with me. Subjective Principal diagnosis: bradycardia, syncope Interval history: Patient seen and examined. He is doing well and he is still weak. No changes in his Parkinson symptoms. Mirapex was discontinued, no adverse effects reported. Patient's speech is at his baseline, no focal weakness noted Objective - Constitutional Vitals: Temp Pulse Resp BP Pulse Ox 99.5 F 78 18 145/63 96 03/25/17 11:41 03/25/17 11:41 03/25/17 10:57 03/25/17 11:41 03/25/17 10:57 - Neurological Exam Sensorimotor examination: Present: intact Motor Examination: Present: grossly full strength in all extremities Motor examination - right side: 5/5: deltoids, biceps, triceps, wrist flexion, wrist extension, automobile tester, hip flexors, tibialis Anterior, quadriceps, toe extension (EHL), plantarflexion Motor examination - left side: 5/5: deltoids, biceps, triceps, wrist flexion, wrist extension, hip flexors, automobile tester, quadriceps, tibialis Anterior, toe extension (EHL), plantarflexion Sensation intact: Present: intact Reflexes: Biceps: 2+, Triceps: 2+, Brachioradialis: 2+, Patella: 2+, Achilles: 2 + Mental Status Examination: Present: awake, alert, oriented to person, oriented to place, oriented to time, follows commands appropriately, answers questions appropriately, no agnosia, no aphasia, no aproxia, lucid Cranial nerve examination: Present: PERRL, EOMI (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) , visual serrano intact, corneal reflexes brisk symmetrically, sensory to face intact, mastication intact, no facial asymmetry is present, soft palate elevates bilaterally upon phonation, gag reflex intact, tongue protrudes midline , no atrophy or facial fasiculations present Cerebellar examination: Present: performs finger to nose and heel to aviles symmetrically without ataxia, dysarthria - VTE Documentation of Mechanical Device: Intermittent pneumatic compression device Results - Laboratory Findings CBC and BMP: 03/25/17 04:10 03/25/17 04:10 Abnormal lab findings: Abnormal lab results WBC 12.6 K/mcL (4.3-11.1) H 03/25/17 04:10 RBC 2.90 M/mcL (4.19-5.50) L 03/25/17 04:10 Hgb 8.8 g/dL (12.9-16.9) L 03/25/17 04:10 Hct 26.6 % (37.5-50.1) L 03/25/17 04:10 Plt Count 134 K/mcL (140-400) L 03/25/17 04:10 Neutrophils # 10.0 K/mcL (1.6-8.9) H 03/25/17 04:10 Sodium 135 mEq/L (136-145) L 03/25/17 04:10 Glucose 119 mg/dL (70-105) H 03/25/17 04:10 POC Glucose 96 (58-89) H 03/23/17 07:54 Calcium 8.4 mg/dL (8.6-10.3) L 03/25/17 04:10 B-Natriuretic Peptide 122 pg/mL (Less than 100) H 03/23/17 00:11 Serum Total Protein 6.2 g/dL (6.4-8.9) L 03/23/17 00:11 Urine Clarity Cloudy (Clear) A 03/24/17 12:25 Ur Specific [place] > 1.030 (1.010-1.025) H 03/24/17 12:25 Urine Blood Large (Negative) H 03/24/17 12:25 Ur Leukocyte Esterase Small (Negative) H 03/24/17 12:25 Urine Microscopic RBC TNTC per hpf (0-3) H 03/24/17 12:25 Urine Microscopic WBC 15-30 per hpf (0-3) H 03/24/17 12:25 Ur Squamous Epith Cells Many per lpf (None-Few) H 03/24/17 12:25 Consult Discharge Plan - Plan Referrals: Jero Hernández, [Primary Care Provider] -
--- NOTE | 2017-03-25 14:03 | Internal Med Progress Note ---
Date of Encounter: 03/25/17 Time of Encounter: 14:01 - Assessment and plan (1) Syncope Current Visit: Yes Status: Acute Assessment and plan: - Syncopal episode at home. Patient altered for interview, daughter at bedside was not present for syncopal event. - Pt was reportedly not feeling well for past week - Possibly secondary to bradycardia secondary to hypothyroidism vs infection - Cardiology following, appreciate recommendations. - CTA negative for PE, mild bilateral pleural effusions. CT abdomen/pelvis showing bilateral renal cyst, possible BPH. No obvious infectious process revealed. Plan - Echo shows EF 65%, valvular abnormalities. no carotid stenotic plaque on US in January. - Cardiology recommendations for bradycardia is to avoid BB for AFib, treat underlying thyroid -Possible CVA etiology, CT head negative in ED. Repeat Head CT ordered today, no evidence of acute process - Neurology consulted, appreciate recommendations. - Continue to monitor 03/25/2017 The etiology for her syncope is unclear at this time. It can be multifactorial. At this point as per family: Patient is back to baseline. Yesterday this patient was evaluated by neurology. Apparently patient's outpatient neurologist with whom patient has a regular follow-up was on service for inpatient consult. As per the neurologist: Patient is back to baseline. Plan: We will continue to monitor more closely and we will follow the recommendations from neurology. Qualifiers: Syncope type: unspecified Qualified Code(s): R55 - Syncope and collapse (2) Atrial fibrillation Current Visit: Yes Status: Acute Assessment and plan: Currently in NSR, however likely AFib on EKG in ED - WIll avoid AV danya blockade as patient has been bradycardic - Consider anticoagulation once more stable. CHADVASC 6 - Rate in 50s, 60s. Has not required atropine in past 24 hours. - Will hold off on anticoagulation due to Hgb downtrend. most recently 9.0 03/25/2017 Overnight patient's heart rate was about 70 bpm. Patient is still in atrial fibrillation. Unable to go with anticoagulation as patient has ongoing hematuria and history of fall. Family is aware of above. Noted that urology discontinued aspirin/Plavix in view of persistent hematuria. Qualifiers: Atrial fibrillation type: paroxysmal Qualified Code(s): I48.0 - Paroxysmal atrial fibrillation (3) Gross hematuria Current Visit: Yes Status: Acute Assessment and plan: Noted there as compared to yesterday, today patient's hematuria is worsened. Urology on the board. Noted that patient's aspirin/Plavix has been discontinued. Plan: We will follow the recommendations from urology. (4) Hypothyroidism Current Visit: Yes Status: Acute Assessment and plan: - TSH of 12 in [place] ED - Free T4, T4, Free T3 all wnl - Started synthroid 75 on admission. Will continue - Continue to monitor. - Low suspicion for myxedema at this time. 03/25/2017 This goes more in favor of subclinical hypothyroidism. Qualifiers: Hypothyroidism type: unspecified Qualified Code(s): E03.9 - Hypothyroidism , unspecified (5) DVT prophylaxis Current Visit: Yes Status: Acute Assessment and plan: SCDs until we are sure of syncope etiology - Subjective Interval history: Patient seen and examined. Chart reviewed. Patient is comfortable in sitting up in bed. Patient's is at bedside. Patient was able to eat his breakfast comfortably. As per : Patient comfortably slept last night. Noted that patient's urine in the urine negative back appears to be more dark than yesterday. - Constitutional Vitals: Temp Pulse Resp BP Pulse Ox 99.5 F 78 18 145/63 96 03/25/17 11:41 03/25/17 11:41 03/25/17 10:57 03/25/17 11:41 03/25/17 10:57 General appearance: Present: A&O X 3, no acute distress, answers questions appropriately - Head Head exam: Present: atraumatic, normocephalic - Eye Eye exam: Present: PERRL, conjuntiva pink, sclera anicteric Pupils: Present: PERRL - Neck Neck exam general surgery: Present: supple, trachea midline. Absent: lymphadenopathy - Respiratory Respiratory exam: Present: CTAB. Absent: accessory muscle use, rales, rhonchi, wheezes - Cardiovascular Cardiovascular exam: Present: RRR, +S1, +S2. Absent: diastolic murmur, gallop, rubs, systolic murmur - GI/Abdominal GI/Abdominal exam: Present: normal bowel sounds, soft, no peritoneal signs. Absent: distended, tenderness - Extremities Exam Extremities exam: Present: warm, radial pulses palpable and symmetrical. Absent : calf tenderness, cyanotic, pedal edema - Neurological Exam Neurological exam: Present: CN II-XII intact, oriented X3, no focal deficits. Absent: pronater drift, facial droop, speech deficit - Skin Skin exam: Present: dry, intact Internal Medicine: Result - Labs CBC & Chem 7: 03/25/17 04:10 03/25/17 04:10 Labs: Short CBC 03/25/17 Range/Units 04:10 WBC 12.6 H (4.3-11.1) K/mcL Hgb 8.8 L (12.9-16.9) g/dL Hct 26.6 L (37.5-50.1) % Plt Count 134 L (140-400) K/mcL Neutrophils # 10.0 H (1.6-8.9) K/mcL BMP 03/25/17 04:10 Sodium 135 L Potassium 3.9 Chloride 103 Carbon Dioxide 28 BUN 23 Creatinine 1.02 Glucose 119 H Calcium 8.4 L - Impressions Impressions Head CT 03/24/17 09:30 IMPRESSION: 1. No acute intracranial abnormality. 2. Paranasal sinus mucosal thickening. Please correlate with clinical symptoms of sinus disease. D/ /24/2017 13:00:23 Kike Flores MD / bcarter Interpreting Provider: Kike Flores MD - VTE Documentation of Mechanical Device: Intermittent pneumatic compression device Consult Discharge Plan - Plan Referrals: Jero Hernández DO [Primary Care Provider] -
[2017-03-26 03:53] LABS: Basophils % 0.4 %; Eosinophils # 0.2 K/mcL (0.0-0.6); Eosinophils % 1.5 %; Hematocrit 27.4 % (37.5-50.1); Hemoglobin 9.1 g/dL (12.9-16.9); Immature Granulocytes % 1.8 % (0-4); Lymphocytes # 1.1 K/mcL (0.6-4.6); Mean Corpuscular HGB Conc 33.2 g/dL (31.6-35.5); Mean Corpuscular Hemoglobin 30.3 pg (28.0-33.3); Mean Corpuscular Volume 91.3 fL (83.0-100.0); Monocytes # 0.8 K/mcL (0.0-1.3); Monocytes % 7.4 %; Platelet Count 140 K/mcL (140-400); Red Cell Distribution Width 14.1 % (11.5-14.5); Segmented Neutrophils % 77.9 %
[2017-03-26 04:11] LABS: Alanine Aminotransferase 4 Units/L (7-52); Albumin/Globulin Ratio 0.9 (1.1-2.2); Alkaline Phosphatase 110 Units/L (34-104); Aspartate Amino Transferase 23 Units/L (13-39); BUN/Creatinine Ratio 19 (6-26); Bilirubin,Total 1.3 mg/dL (0.3-1.0); Blood Urea Nitrogen 21 mg/dL (8-23); Calcium 8.5 mg/dL (8.6-10.3); Carbon Dioxide 26 mEq/L (23-29); Chloride 103 mEq/L (98-107); Globulin 3.3 g/dL (2.4-3.5); Glucose 120 mg/dL (70-105); Osmolality,Calculated 288 (280-300); Potassium 3.9 mEq/L (3.5-5.1); Sodium 137 mEq/L (136-145); Total Protein 6.3 g/dL (6.4-8.9); eGFR For African Americans > 60 (> 60); eGFR For Non-African Americans > 60 (> 60)
[2017-03-26] MEDS: Ipratropium/Albuterol Neb 3 ML IH SCH ×4 (04:19→22:29)
[2017-03-26] MEDS: Ampicillin/Sulbactam 3,000 MG in 0.9 % Sodium Chloride Mini Bag 100 ML IVPB SCH ×4 (05:51→23:30)
[2017-03-26] MEDS: Finasteride 5 MG TABLET PO SCH (08:57)
[2017-03-26] MEDS: Carbidopa/Levodopa ER 50/200 TABLET PO SCH ×2 (08:57→21:21)
--- NOTE | 2017-03-26 09:10 | Cardiology Progress Note ---
Date of Encounter: 03/26/17 Time of Encounter: 09:07 Assessment and Plan (1) Sinus bradycardia Current Visit: Yes Status: Acute Reported to have sinus bradycardia with HR in the 30's after syncopal event. No rhythm strips or EKG for review that show bradycardia. EMS EKG shows HR 64, atrial fibrillation. 24 hour telemetry review shows AVg HR 66, no significant pauses. HR has continued to improve, with lowest HR overnight 49 bpm. Edna noted. Pt denies dizziness or lightheadedness overnight. He is not on AV danya blockade. TSH 12- hospitalist following. T3 and T4 normal. Discussed with Dr. Kibmrough. Likely subclinical. Recommend re-evaluation in a few weeks. Repeat TTE shows EF 65%. TTE 02/15/17- EF 60-65%. Mild MT, mild AR. Avoid AV danya blockers. Discussed with Dr. Sami Flood. At this time, no urgent indication for PPM. Upon d/c, recommend 2 week event monitor to further evaluate. If recurrent syncope/episodes, instructed pt and daughter to call/seek medical attention. Cardiology signing off. Reconsult PRN. Follow-up in 3-4 weeks. Will coordinate. (2) CAD (coronary artery disease) Current Visit: Yes Status: Chronic H/o remote cardiac stent. Was on asa, plavix, but these have been stopped due to hematuria and anemia. Unknown why he is not on statin or bb previously. Hold bb due to bradycardia. Consider adding statin therapy. Qualifiers: Coronary Disease-Associated Artery/Lesion type: [place] artery [place] vs. transplanted heart: [place] heart Associated angina: without angina Qualified Code(s): I25.10 - Atherosclerotic heart disease of [place] coronary artery without angina pectoris (3) Atrial fibrillation Current Visit: Yes Status: Acute EKG from EMS shows atrial fibrillation. Currently NSR. Avoid AV danya ally due to reported bradycardia. No recurrent afib seen. There was concern for CVA/TIA and MRI cannot be completed. CHADS VASc=6 (HTN, age 2, CAD, possible CVA2). AC with NOAc or coumadin would be recommended if okay with neurology and hematuria resolves. Hgb decreased at 9.1. Will hold off on AC at this time and re-evaluate at follow-up and once 2 week event monitor is reviewed. High CVA risk not on full anticoagulation, pt aware. Qualifiers: Atrial fibrillation type: paroxysmal Qualified Code(s): I48.0 - Paroxysmal atrial fibrillation Discussion w patient/family: The assessment and plan as outlined above was discussed with the patient and/or family members who expressed understanding and agreement. All questions were answered. Thank you for involving us in the care of your patient. Please call with any questions. I will discuss all the above with Dr. Sami Flood and make changes as necessary. Subjective Principal diagnosis: bradycardia, syncope Interval history: Pt denies dizziness or lightheadedness overnight. No acute cardiac complaints. Objective Vital Signs, Last 4 Hours Temp Pulse Resp BP Pulse Ox 03/26/17 07:09 98.2 F 60 12 143/66 94 Vital Signs Temp Pulse Resp BP Pulse Ox 03/26/17 07:09 98.2 F 60 12 143/66 94 03/26/17 05:00 98 F 61 18 133/68 99 03/26/17 04:21 16 03/26/17 00:31 99.6 F 74 16 127/50 93 03/25/17 21:38 14 03/25/17 19:00 98.2 F 68 21 151/80 95 03/25/17 15:43 99.4 F 65 16 134/59 99 03/25/17 15:22 16 97 03/25/17 11:41 99.5 F 78 145/63 03/25/17 10:57 18 96 Intake and Output 03/25/17 03/26/17 03/26/17 23:59 07:59 15:59 Intake Total 200 / 200 100 / 100 Output Total 1200 / 1200 Balance 200 / 200 -1100 / -1100 Intake: IV Fluids 200 / 200 100 / 100 Unasyn 3,000 MG In 0.9 % Sodium 200 / 200 100 / 100 Chloride (Mini-Bag +) 100 ML @ 200 mls/hr IVPB Q6HR [facility] Rx#: [id number] Oral 0 / 0 Output: Urine 100 / 100 Catheter 1100 / 1100 Other: Weight 86 kg Blood Glucose* 86 Patient Weight 03/26/17 23:59 Weight 86 kg General: Conversant, No Apparent Distress HEENT: Atraumatic, Normocephaly, Mucus Membranes Moist Neck: No JVD, Normal carotid pulses Cardiac: Reg Rate and Rhythm, Normal S1 and S2, No Murmur Lungs: Normal Breath Sounds, No Wheeze, Rales, Rhonchi Neuro: Alert and responsive, No focal deficits noted Abdomen: Soft, Non-Tender Skin: No rashes noted on visualized skin Musculoskeletal: No Chest Wall Tenderness Extremities: No Clubbing, No Cyanosis, No Edema, Normal Pulses Results 03/26/17 03:45 03/26/17 03:45 Lab Results 03/26/17 03/26/17 03:45 03:45 WBC 10.2 Hgb 9.1 L Hct 27.4 L Plt Count 140 Sodium 137 Potassium 3.9 Chloride 103 Carbon Dioxide 26 BUN 21 Creatinine 1.12 Glucose 120 H Calcium 8.5 L Total Bilirubin 1.3 H AST 23 ALT 4 L Alkaline Phosphatase 110 H Short CBC 03/26/17 Range/Units 03:45 WBC 10.2 (4.3-11.1) K/mcL Hgb 9.1 L (12.9-16.9) g/dL Hct 27.4 L (37.5-50.1) % Plt Count 140 (140-400) K/mcL Neutrophils # 8.0 (1.6-8.9) K/mcL BMP 03/26/17 Range/Units 03:45 Sodium 137 (136-145) mEq/L Potassium 3.9 (3.5-5.1) mEq/L Chloride 103 (98-107) mEq/L Carbon Dioxide 26 (23-29) mEq/L BUN 21 (8-23) mg/dL Creatinine 1.12 (0.70-1.30) mg/dL Glucose 120 H (70-105) mg/dL Calcium 8.5 L (8.6-10.3) mg/dL Liver Function 03/26/17 Range/Units 03:45 Total Bilirubin 1.3 H (0.3-1.0) mg/dL AST 23 (13-39) Units/L ALT 4 L (7-52) Units/L Alkaline Phosphatase 110 H (34-104) Units/L Albumin 3.0 L (3.5-5.7) g/dL Impressions Chest CTA 03/24/17 09:29 IMPRESSION: 1. No pulmonary embolus is identified. 2. Small bilateral pleural effusions, pulmonary edema with interlobular septal thickening would be most suggestive of fluid overload/CHF. 3. Additionally, there is dilation of the proximal portion of the esophagus with evidence of food stuff seen in the mid portion. Given this finding, superimposed aspiration/aspiration pneumonia should be a diagnostic consideration. 4. An esophagram or direct visualization of the esophagus should be considered to assess for any focal strictures. D/ / 03/24/2017 13:08:34 Georgi Wall / carlos Interpreting Provider: Georgi Wall Active Medications Albuterol/Ipratropium (Duoneb) 3 ml IH [id number] MARYLOU Stop: 09/22/17 04:01 Last Admin: 03/26/17 04:19 Dose: 3 ml Albuterol/Ipratropium (Duoneb) 3 ml IH [id number] PRN PRN Reason: Shortness Of Breath/Wheezing Stop: 09/21/17 23:14 Atropine Sulfate (Atropine) 0.5 mg IVP Q2H PRN PRN Reason: Heart Rate-Low Stop: 09/21/17 23:31 Carbidopa/Levodopa (Sinemet Er 50-200 Tab) 1 each PO BID [facility] Stop: 09/22/17 09:01 Last Admin: 03/26/17 08:57 Dose: 1 each Finasteride (Proscar) 5 mg PO DAILY MARYLOU PRN Reason: Protocol Stop: 09/24/17 09:01 Last Admin: 03/26/17 08:57 Dose: 5 mg Ampicillin Sodium/Sulbactam Sodium 3,000 mg/ Sodium Chloride 100 mls @ 200 mls/ hr IVPB Q6HR MARYLOU Stop: 09/22/17 00:01 Last Infusion: 03/26/17 06:38 Dose: Infused Levothyroxine Sodium (Synthroid) 75 mcg PO DAILY@0630 [facility] Stop: 09/22/17 06:31 Last Admin: 03/26/17 05:52 Dose: 75 mcg Naloxone HCl (Narcan) 0.4 mg IVP Q2MIN PRN PRN Reason: SEE COMMENTS Stop: 09/21/17 22:59 Tamsulosin HCl (Flomax) 0.4 mg PO DAILY MARYLOU PRN Reason: Protocol Stop: 09/22/17 09:01 Last Admin: 03/26/17 08:56 Dose: 0.4 mg - Imaging and Cardiology Echo: report reviewed - EKG Interpretation EKG results cardiology: other (24 hr tele AVG HR 66, lowest HR noted 49. No significant pauses. Edna noted.) - VTE Documentation of Mechanical Device: Intermittent pneumatic compression device Consult Discharge Plan - Plan Referrals: Jero Hernández DO [Primary Care Provider] -
--- NOTE | 2017-03-26 09:16 | Urology Progress Note ---
Date of Encounter: 03/26/17 Time of Encounter: 09:14 - Assessment and Plan (1) BPH loc w urin obs/LUTS Current Visit: Yes Status: Acute (2) Gross hematuria Current Visit: Yes Status: Acute Assessment and plan: Significant improvement and hematuria with holding Plavix and aspirin. Okay to restart baby aspirin. Consider holding Plavix for extended period of time because of bleeding risk. Progress Note Narrative: Hematuria decreased overnight Objective Initial Vital Signs Temp Pulse Resp BP Pulse Ox 93.7 F L 70 20 114/57 97 03/22/17 22:44 03/22/17 22:44 03/22/17 22:44 03/22/17 22:44 03/22/17 22:44 - Additional Exam Urine in Tomas catheter tubing nearly clear - Labs 03/26/17 03:45 03/26/17 03:45 Diabetes panel 03/26/17 Range/Units 03:45 Sodium 137 (136-145) mEq/L Potassium 3.9 (3.5-5.1) mEq/L Chloride 103 (98-107) mEq/L Carbon Dioxide 26 (23-29) mEq/L BUN 21 (8-23) mg/dL Creatinine 1.12 (0.70-1.30) mg/dL Glucose 120 H (70-105) mg/dL Calcium 8.5 L (8.6-10.3) mg/dL AST 23 (13-39) Units/L ALT 4 L (7-52) Units/L Alkaline Phosphatase 110 H (34-104) Units/L Albumin 3.0 L (3.5-5.7) g/dL Calcium panel 03/26/17 Range/Units 03:45 Calcium 8.5 L (8.6-10.3) mg/dL Albumin 3.0 L (3.5-5.7) g/dL Pituitary panel 03/26/17 Range/Units 03:45 Sodium 137 (136-145) mEq/L Potassium 3.9 (3.5-5.1) mEq/L Chloride 103 (98-107) mEq/L Carbon Dioxide 26 (23-29) mEq/L BUN 21 (8-23) mg/dL Creatinine 1.12 (0.70-1.30) mg/dL Glucose 120 H (70-105) mg/dL Calcium 8.5 L (8.6-10.3) mg/dL Adrenal panel 03/26/17 Range/Units 03:45 Sodium 137 (136-145) mEq/L Potassium 3.9 (3.5-5.1) mEq/L Chloride 103 (98-107) mEq/L Carbon Dioxide 26 (23-29) mEq/L BUN 21 (8-23) mg/dL Creatinine 1.12 (0.70-1.30) mg/dL Glucose 120 H (70-105) mg/dL Calcium 8.5 L (8.6-10.3) mg/dL Total Bilirubin 1.3 H (0.3-1.0) mg/dL AST 23 (13-39) Units/L ALT 4 L (7-52) Units/L Alkaline Phosphatase 110 H (34-104) Units/L Albumin 3.0 L (3.5-5.7) g/dL - VTE Documentation of Mechanical Device: Intermittent pneumatic compression device Consult Discharge Plan - Plan Referrals: Jero Hernández DO [Primary Care Provider] -
--- NOTE | 2017-03-26 11:37 | Internal Med Progress Note ---
Date of Encounter: 03/26/17 Time of Encounter: 11:33 - Assessment and plan (1) Syncope Current Visit: Yes Status: Acute Assessment and plan: - Syncopal episode at home. Patient altered for interview, daughter at bedside was not present for syncopal event. - Pt was reportedly not feeling well for past week - Possibly secondary to bradycardia secondary to hypothyroidism vs infection - Cardiology following, appreciate recommendations. - CTA negative for PE, mild bilateral pleural effusions. CT abdomen/pelvis showing bilateral renal cyst, possible BPH. No obvious infectious process revealed. Plan - Echo shows EF 65%, valvular abnormalities. no carotid stenotic plaque on US in January. - Cardiology recommendations for bradycardia is to avoid BB for AFib, treat underlying thyroid -Possible CVA etiology, CT head negative in ED. Repeat Head CT ordered today, no evidence of acute process - Neurology consulted, appreciate recommendations. - Continue to monitor 03/25/2017 The etiology for her syncope is unclear at this time. It can be multifactorial. At this point as per family: Patient is back to baseline. Yesterday this patient was evaluated by neurology. Apparently patient's outpatient neurologist with whom patient has a regular follow-up was on service for inpatient consult. As per the neurologist: Patient is back to baseline. Plan: We will continue to monitor more closely and we will follow the recommendations from neurology. 03/26/2017 Cardiology: Signed off: Upon discharge event monitor/follow-up outpatient in 2- 3 weeks/avoid beta blockers. Neurology: Signed off: Discontinue Mirapex/no acute [employer] pathology/follow-up as outpatient (appointment already made.) Ophthalmology: Signed off: No evidence of retinal tear. Urology: Hematuria is getting better: Started aspirin and recommended to hold Plavix for indefinite time along with other anticoagulant. I had a prolonged discussion with the patient's daughter this morning. Family is keen to go back to shelter. Patient will go back to shelter probably tomorrow if there is a persistent improvement. May talked to family tomorrow regarding out patient consult with palliative care. Qualifiers: Syncope type: unspecified Qualified Code(s): R55 - Syncope and collapse (2) Atrial fibrillation Current Visit: Yes Status: Acute Assessment and plan: Currently in NSR, however likely AFib on EKG in ED - WIll avoid AV danya blockade as patient has been bradycardic - Consider anticoagulation once more stable. CHADVASC 6 - Rate in 50s, 60s. Has not required atropine in past 24 hours. - Will hold off on anticoagulation due to Hgb downtrend. most recently 9.0 03/25/2017 Overnight patient's heart rate was about 70 bpm. Patient is still in atrial fibrillation. Unable to go with anticoagulation as patient has ongoing hematuria and history of fall. Family is aware of above. Noted that urology discontinued aspirin/Plavix in view of persistent hematuria. 03/26/2017 Continue present management Qualifiers: Atrial fibrillation type: paroxysmal Qualified Code(s): I48.0 - Paroxysmal atrial fibrillation (3) Gross hematuria Current Visit: Yes Status: Acute Assessment and plan: Noted there as compared to yesterday, today patient's hematuria is worsened. Urology on the board. Noted that patient's aspirin/Plavix has been discontinued. Plan: We will follow the recommendations from urology. 03/26/2017 Hematuria getting better. Noted that urology restarted aspirin. We will have a close observation. (4) Hypothyroidism Current Visit: Yes Status: Acute Assessment and plan: - TSH of 12 in [facility] ED - Free T4, T4, Free T3 all wnl - Started synthroid 75 on admission. Will continue - Continue to monitor. - Low suspicion for myxedema at this time. 03/25/2017 This goes more in favor of subclinical hypothyroidism. Qualifiers: Hypothyroidism type: unspecified Qualified Code(s): E03.9 - Hypothyroidism , unspecified (5) DVT prophylaxis Current Visit: Yes Status: Acute Assessment and plan: SCDs until we are sure of syncope etiology - Subjective Interval history: Patient seen and examined. Chart reviewed. Patient is comfortable in sitting up in bed. Patient's is at bedside. Patient was able to eat his breakfast comfortably. As per : Patient comfortably slept last night. Noted that patient's urine in the urine negative back appears to be more dark than yesterday. 03/26/2017 Patient seen and examined. Chart reviewed. Patient is sitting up in bed. Patient is about to start his breakfast. Patient's daughter is at the bedside. Patient denies any complaints at this point. - Constitutional Vitals: Temp Pulse Resp BP Pulse Ox 97.6 F 59 12 123/58 92 03/26/17 09:56 03/26/17 09:56 03/26/17 10:50 03/26/17 09:56 03/26/17 10:50 General appearance: Present: A&O X 3, no acute distress, answers questions appropriately - Head Head exam: Present: atraumatic, normocephalic - Eye Eye exam: Present: PERRL, conjuntiva pink, sclera anicteric Pupils: Present: PERRL - Neck Neck exam general surgery: Present: supple, trachea midline. Absent: lymphadenopathy - Respiratory Respiratory exam: Present: CTAB. Absent: accessory muscle use, rales, rhonchi, wheezes - Cardiovascular Cardiovascular exam: Present: RRR, +S1, +S2. Absent: diastolic murmur, gallop, rubs, systolic murmur - GI/Abdominal GI/Abdominal exam: Present: normal bowel sounds, soft, no peritoneal signs. Absent: distended, tenderness - Extremities Exam Extremities exam: Present: warm, radial pulses palpable and symmetrical. Absent : calf tenderness, cyanotic, pedal edema - Neurological Exam Neurological exam: Present: CN II-XII intact, oriented X3, no focal deficits. Absent: pronater drift, facial droop, speech deficit - Skin Skin exam: Present: dry, intact Internal Medicine: Result - Labs CBC & Chem 7: 03/26/17 03:45 03/26/17 03:45 Labs: Short CBC 03/26/17 Range/Units 03:45 WBC 10.2 (4.3-11.1) K/mcL Hgb 9.1 L (12.9-16.9) g/dL Hct 27.4 L (37.5-50.1) % Plt Count 140 (140-400) K/mcL Neutrophils # 8.0 (1.6-8.9) K/mcL BMP 03/26/17 03:45 Sodium 137 Potassium 3.9 Chloride 103 Carbon Dioxide 26 BUN 21 Creatinine 1.12 Glucose 120 H Calcium 8.5 L Liver Function 03/26/17 Range/Units 03:45 Total Bilirubin 1.3 H (0.3-1.0) mg/dL AST 23 (13-39) Units/L ALT 4 L (7-52) Units/L Alkaline Phosphatase 110 H (34-104) Units/L Albumin 3.0 L (3.5-5.7) g/dL - Impressions Impressions Chest CTA 03/24/17 09:29 IMPRESSION: 1. No pulmonary embolus is identified. 2. Small bilateral pleural effusions, pulmonary edema with interlobular septal thickening would be most suggestive of fluid overload/CHF. 3. Additionally, there is dilation of the proximal portion of the esophagus with evidence of food stuff seen in the mid portion. Given this finding, superimposed aspiration/aspiration pneumonia should be a diagnostic consideration. 4. An esophagram or direct visualization of the esophagus should be considered to assess for any focal strictures. D/ / 03/24/2017 13:08:34 Georgi Wall / carlos Interpreting Provider: Georgi Wall - VTE Documentation of Mechanical Device: Intermittent pneumatic compression device Consult Discharge Plan - Plan Referrals: Jero Hernández DO [Primary Care Provider] -
[2017-03-26] MEDS: Aspirin 81 MG TAB.CHEW PO SCH (12:48)
[2017-03-27] MEDS: Ipratropium/Albuterol Neb 3 ML IH SCH ×4 (03:45→21:25)
[2017-03-27 03:53] LABS: Basophils % 0.6 %; Eosinophils # 0.5 K/mcL (0.0-0.6); Eosinophils % 7.7 %; Hematocrit 25.9 % (37.5-50.1); Hemoglobin 8.6 g/dL (12.9-16.9); Immature Granulocytes % 3.2 % (0-4); Lymphocytes % 14.2 %; Mean Corpuscular HGB Conc 33.2 g/dL (31.6-35.5); Mean Corpuscular Hemoglobin 30.2 pg (28.0-33.3); Mean Corpuscular Volume 90.9 fL (83.0-100.0); Mean Platelet Volume 10.8 fL (9.4-12.4); Monocytes # 0.9 K/mcL (0.0-1.3); Monocytes % 12.5 %; Neutrophils # 4.3 K/mcL (1.6-8.9); Platelet Count 143 K/mcL (140-400); Red Blood Count 2.85 M/mcL (4.19-5.50); Red Cell Distribution Width 13.7 % (11.5-14.5); Segmented Neutrophils % 61.8 %
[2017-03-27 04:28] LABS: Alanine Aminotransferase 4 Units/L (7-52); Albumin 2.8 g/dL (3.5-5.7); Albumin/Globulin Ratio 0.9 (1.1-2.2); Alkaline Phosphatase 132 Units/L (34-104); Aspartate Amino Transferase 22 Units/L (13-39); BUN/Creatinine Ratio 23 (6-26); Bilirubin,Total 0.9 mg/dL (0.3-1.0); Blood Urea Nitrogen 19 mg/dL (8-23); Calcium 8.3 mg/dL (8.6-10.3); Carbon Dioxide 26 mEq/L (23-29); Chloride 104 mEq/L (98-107); Globulin 3.2 g/dL (2.4-3.5); Glucose 113 mg/dL (70-105); Osmolality,Calculated 285 (280-300); Potassium 3.9 mEq/L (3.5-5.1); Sodium 136 mEq/L (136-145); eGFR For African Americans > 60 (> 60); eGFR For Non-African Americans > 60 (> 60)
[2017-03-27] MEDS: Ampicillin/Sulbactam 3,000 MG in 0.9 % Sodium Chloride Mini Bag 100 ML IVPB SCH ×3 (05:34→18:24)
--- NOTE | 2017-03-27 07:45 | Urology Progress Note ---
Date of Encounter: 03/27/17 Time of Encounter: 07:43 - Assessment and Plan (1) BPH loc w urin obs/LUTS Current Visit: Yes Status: Acute (2) Gross hematuria Current Visit: Yes Status: Acute Assessment and plan: hematuria resolved. keep cath in place until clear at least a few days. plavix held now. OK to restart in a few days if urine remains clear. Progress Note Narrative: hematuria completely resolved. Objective Initial Vital Signs Temp Pulse Resp BP Pulse Ox 93.7 F L 70 20 114/57 97 03/22/17 22:44 03/22/17 22:44 03/22/17 22:44 03/22/17 22:44 03/22/17 22:44 - Additional Exam urine completely clear - Labs 03/27/17 03:41 03/27/17 03:41 Diabetes panel 03/27/17 Range/Units 03:41 Sodium 136 (136-145) mEq/L Potassium 3.9 (3.5-5.1) mEq/L Chloride 104 (98-107) mEq/L Carbon Dioxide 26 (23-29) mEq/L BUN 19 (8-23) mg/dL Creatinine 0.83 (0.70-1.30) mg/dL Glucose 113 H (70-105) mg/dL Calcium 8.3 L (8.6-10.3) mg/dL AST 22 (13-39) Units/L ALT 4 L (7-52) Units/L Alkaline Phosphatase 132 H (34-104) Units/L Albumin 2.8 L (3.5-5.7) g/dL Calcium panel 03/27/17 Range/Units 03:41 Calcium 8.3 L (8.6-10.3) mg/dL Albumin 2.8 L (3.5-5.7) g/dL Pituitary panel 03/27/17 Range/Units 03:41 Sodium 136 (136-145) mEq/L Potassium 3.9 (3.5-5.1) mEq/L Chloride 104 (98-107) mEq/L Carbon Dioxide 26 (23-29) mEq/L BUN 19 (8-23) mg/dL Creatinine 0.83 (0.70-1.30) mg/dL Glucose 113 H (70-105) mg/dL Calcium 8.3 L (8.6-10.3) mg/dL Adrenal panel 03/27/17 Range/Units 03:41 Sodium 136 (136-145) mEq/L Potassium 3.9 (3.5-5.1) mEq/L Chloride 104 (98-107) mEq/L Carbon Dioxide 26 (23-29) mEq/L BUN 19 (8-23) mg/dL Creatinine 0.83 (0.70-1.30) mg/dL Glucose 113 H (70-105) mg/dL Calcium 8.3 L (8.6-10.3) mg/dL Total Bilirubin 0.9 (0.3-1.0) mg/dL AST 22 (13-39) Units/L ALT 4 L (7-52) Units/L Alkaline Phosphatase 132 H (34-104) Units/L Albumin 2.8 L (3.5-5.7) g/dL - VTE Documentation of Mechanical Device: Intermittent pneumatic compression device Consult Discharge Plan - Plan Referrals: Jero Hernández DO [Primary Care Provider] -
[2017-03-27] MEDS: Aspirin 81 MG TAB.CHEW PO SCH (08:50)
[2017-03-27] MEDS: Carbidopa/Levodopa ER 50/200 TABLET PO SCH ×2 (08:50→20:29)
[2017-03-27] MEDS: Finasteride 5 MG TABLET PO SCH (08:50)
--- NOTE | 2017-03-27 10:41 | Discharge Summary ---
<Venu Andrea - Last Filed: 03/27/17 13:32> Date of Encounter: 03/27/17 Time of Encounter: 10:40 - Discharge Diagnosis (1) Syncope Priority: Primary Status: Acute Qualifiers: Syncope type: unspecified Qualified Code(s): R55 - Syncope and collapse (2) Sinus bradycardia Priority: Secondary Status: Acute (3) Atrial fibrillation Priority: Secondary Status: Acute Qualifiers: Atrial fibrillation type: paroxysmal Qualified Code(s): I48.0 - Paroxysmal atrial fibrillation (4) Hypothermia Priority: Secondary Status: Resolved Qualifiers: Encounter type: initial encounter Qualified Code(s): T68.XXXA - Hypothermia , initial encounter (5) Hypothyroidism Priority: Secondary Status: Acute Qualifiers: Hypothyroidism type: unspecified Qualified Code(s): E03.9 - Hypothyroidism , unspecified (6) CAD (coronary artery disease) Priority: Secondary Status: Chronic Qualifiers: Coronary Disease-Associated Artery/Lesion type: [place] artery [place] vs. transplanted heart: [place] heart Associated angina: without angina Qualified Code(s): I25.10 - Atherosclerotic heart disease of [place] coronary artery without angina pectoris (7) PNA (pneumonia) Priority: Secondary Status: Acute Qualifiers: Pneumonia type: aspiration pneumonia Aspiration pneumonia type: unspecified Laterality: unspecified laterality Lung location: unspecified part of lung Qualified Code(s): J69.0 - Pneumonitis due to inhalation of food and vomit (8) Parkinson disease Priority: Secondary Status: Chronic (9) Hx of transient ischemic attack (TIA) Priority: Secondary Status: Acute (10) DVT prophylaxis Priority: Secondary Status: Acute - Discharge Medications Prescriptions: Levothyroxine [Synthroid] 75 mcg PO DAILY@0630 #30 tablet Home Medications: Aspirin [Lo-Dose Aspirin EC] 81 mg PO DAILY 02/15/17 [History] Carbidopa/Levodopa ER 50/200 [Sinemet ER 50-200 Tab] 1 each PO BID 02/15/17 [ History] Simvastatin [Zocor] 40 mg PO HS 02/15/17 [History] Tamsulosin [Flomax] 0.4 mg PO DAILY 02/15/17 [History] Clopidogrel [Plavix] 75 mg PO DAILY #90 tablet 02/17/17 [Rx] amLODIPine [Norvasc] 5 mg PO BID 03/22/17 [History] Losartan Potassium [Cozaar] 100 mg PO DAILY 03/23/17 [History] hydroCHLOROthiazide [Hydrochlorothiazide] 25 mg PO DAILY 03/23/17 [History] Levothyroxine [Synthroid] 75 mcg PO DAILY@0630 #30 tablet 03/27/17 [Rx] Allergies/Adverse Reactions: 3 Allergy/AdvReac Type Severity Reaction Status Date / Time No Known Allergies Allergy Verified 02/15/17 12:10 Procedures/tests Complete & Pending: Procedures Performed prior 72 hours Category Date Time Status ECG event monitor 2 weeks [ECG] Routine Y 03/26/17 09:13 Ordered Date of admission: 03/22/17 22:58 Primary care physician: Jero Hernández DO Consults: 03/22/17 23:18 Consult to Cardiology [CONS] Routine Comment: Consulting Provider: Cardiology [facility] Reason for Consult: symptomatic bradycardia Call Completed: No 03/23/17 02:40 Consult to Speech Therapy [CONS] Routine Comment: Evaluate, develop and implement POC Reason for Consult: Swallow evaluation, pt has Parkinson disease Call Completed: No 03/24/17 09:26 Consult to Neurology [CONS] Routine Consulting Provider: Neurology [facility] Reason for Consult: AMS, facial droop Call Completed: Yes 03/24/17 09:31 Consult to Urology [CONS] Routine Consulting Provider: Urology [facility] Reason for Consult: persistent hemauria Call Completed: Yes 03/24/17 14:18 Consult to Physician [CONS] Routine Consulting Provider: Melvin Hughes Reason for Consult: Vision changes Call Completed: Yes 03/25/17 11:26 Consult to Physical Therapy [CONS] Routine Comment: Evaluate, develop and implement POC Reason for Consult: need for evaluation 03/25/17 11:28 OT [Consult to Occupational Therapy] [CONS] Routine Comment: Evaluate, develop and implement POC Reason for Consult: Need for evaluation Discharging clinician: Venu Andrea Anticipated date of discharge: 03/27/17 - Patient Status Disposition: Transfer SNF Condition: Fair Functional capacity at discharge: uses cane/walker Overall status at discharge: patient is progressing back to baseline - Discharge Instructions Follow Up With: Jero Hernández DO [Primary Care Provider] - Additional Instructions: Please follow up with your PCP after discharge. Take all medications as prescribed. You may restart your plavix tomorrow if your urine does not have any blood in it. Wear your heart monitor as instructed. - Diet and Activity Activity: as per physical therapy, increase activity as tolerated, resume usual activities as tolerated Diet: advance to your usual diet Hospital course: Mr. Berkowitz is a 87 year old male with a PMHx of Parkinson disease, TIA, CAD s/p stent, skin cancer was sent from [facility] ED for syncope. On arrival to [facility], he was noted to be bradycardic at 37, hypotensive with SBP in 70s. EKG showed AFib with slow ventricular response. He responded to Atropine and responded with HR in 60s and NSR. He was also noted to be hypothermic with rectal temp of 93.7. Echo showed EF of 60-65% with normal wall motion. Cardiology was consulted in ED and he was admitted to hospital for syncope, bradycardia, hypothermia. CT head on presentation as well as repeat were both negative for acute process. During course of hospital stay, he gradually improved. He was warmed with bear hugger blanket and give atropine PRN. His signs and symptoms were thought to be secondary to shock from aspiration pneumonia vs new hypothyroidism. He was treated with synthroid and unasyn. He was also evaluated by neurology who do not believe he had a CVA, but cannot rule out TIA. They recommend discontinue mirapex on discharge. Urology was consulted for hematuria who stopped plavix and state that he may resume plavix once bleeding has stopped for a couple days. On day of discharge, patient is AOx3 and states that he is keen to go to rehab with a goal of returning home. He has no symptoms. Vitals are stable. Labs stable. All questions were answered. He will be discharged to SNF/ECF once set up. All questions answered. - Time Spent with Patient Total time spent providing and/or coordinating discharge services: - Constitutional Vitals: Temp Pulse Resp BP Pulse Ox 98 F 61 16 136/63 94 03/27/17 07:13 03/27/17 07:13 03/27/17 07:13 03/27/17 07:13 03/27/17 07:13 General appearance: Present: A&O X 3, no acute distress, answers questions appropriately Exam: Gen.: Vitals noted. No acute distress. AAOx3. Alert and awake answering questions appropriately. HEENT: PERRL/EOMI, oropharynx clear, Normocephalic, atraumatic, MMM Cardiac: Bradycardic, regular rhythm, no murmur, +S1/S2 Pulmonary: Mild rales diffusely, however much improved from previous. equal chest expansion Abdomen: soft, nontender, BS noted, no guarding MSK: ROM intact, no joint swelling noted Extremities: no BLE edema, nontender calf, no cyanosis or clubbing Neuro: A&Ox3, moves all extremities, no focal deficits Psych: Appropriate mood and behavior - VTE Documentation of Mechanical Device: Intermittent pneumatic compression device <Richard Kimbrough P - Last Filed: 03/27/17 16:34> Date of Encounter: 03/27/17 - Discharge Diagnosis (1) Syncope Status: Acute Qualifiers: Syncope type: unspecified Qualified Code(s): R55 - Syncope and collapse (2) Atrial fibrillation Status: Acute Qualifiers: Atrial fibrillation type: paroxysmal Qualified Code(s): I48.0 - Paroxysmal atrial fibrillation (3) Gross hematuria Status: Acute (4) Hypothyroidism Status: Acute Qualifiers: Hypothyroidism type: unspecified Qualified Code(s): E03.9 - Hypothyroidism , unspecified (5) DVT prophylaxis Status: Acute Procedures/tests Complete & Pending: Procedures Performed prior 72 hours Category Date Time Status ECG event monitor 2 weeks [ECG] Routine Y 03/26/17 09:13 Completed Date of admission: 03/22/17 22:58 Primary care physician: Jero Hernández DO Consults: 03/22/17 23:18 Consult to Cardiology [CONS] Routine Comment: Consulting Provider: Cardiology [place] Reason for Consult: symptomatic bradycardia Call Completed: No 03/23/17 02:40 Consult to Speech Therapy [CONS] Routine Comment: Evaluate, develop and implement POC Reason for Consult: Swallow evaluation, pt has Parkinson disease Call Completed: No 03/24/17 09:26 Consult to Neurology [CONS] Routine Consulting Provider: Neurology [facility] Reason for Consult: AMS, facial droop Call Completed: Yes 03/24/17 09:31 Consult to Urology [CONS] Routine Consulting Provider: [facility] Reason for Consult: persistent hemauria Call Completed: Yes 03/24/17 14:18 Consult to Physician [CONS] Routine Consulting Provider: Saul,Melvin L. Reason for Consult: Vision changes Call Completed: Yes 03/25/17 11:26 Consult to Physical Therapy [CONS] Routine Comment: Evaluate, develop and implement POC Reason for Consult: need for evaluation 03/25/17 11:28 OT [Consult to Occupational Therapy] [CONS] Routine Comment: Evaluate, develop and implement POC Reason for Consult: Need for evaluation 03/27/17 11:02 Consult to Turf Manager [CONS] Routine Reason for SW Consult: possible placement to [facility] Hospital course: Mr. Berkowitz is a 87 year old male - Time Spent with Patient Total time spent providing and/or coordinating discharge services: - Constitutional Vitals: Temp Pulse Resp BP Pulse Ox 97.7 F 55 16 136/71 100 03/27/17 15:09 03/27/17 15:09 03/27/17 15:09 03/27/17 15:09 03/27/17 15:09 - Attending Attestation I examined this patient and my medical decision-making was reviewed with the Resident Physician. I agree with the documented findings, disposition and treatment plan as described except to the extent set forth below.
--- NOTE | 2017-03-27 13:18 | Physician Discharge Referral ---
<ZullyVenu - Last Filed: 03/27/17 13:16> [facility] Referral Info Provider in Charge after Transfer: PCP Institutional Level of Care: Skilled - Diagnosis (1) Syncope Priority: Primary Status: Acute (2) Sinus bradycardia Priority: Secondary Status: Acute (3) Atrial fibrillation Priority: Secondary Status: Acute (4) Hypothermia Priority: Secondary Status: Resolved (5) Hypothyroidism Priority: Secondary Status: Acute (6) CAD (coronary artery disease) Priority: Secondary Status: Chronic (7) PNA (pneumonia) Priority: Secondary Status: Acute (8) Parkinson disease Priority: Secondary Status: Chronic (9) Hx of transient ischemic attack (TIA) Priority: Secondary Status: Acute (10) DVT prophylaxis Priority: Secondary Status: Acute Prognosis: Fair Aware of Diagnosis: Patient, Family Aware of Prognosis: Patient, Family - Transfer Medications Prescriptions: Levothyroxine [Synthroid] 75 mcg PO DAILY@0630 #30 tablet Home Medications: Aspirin [Lo-Dose Aspirin EC] 81 mg PO DAILY 02/15/17 [History] Carbidopa/Levodopa ER 50/200 [Sinemet ER 50-200 Tab] 1 each PO BID 02/15/17 [ History] Simvastatin [Zocor] 40 mg PO HS 02/15/17 [History] Tamsulosin [Flomax] 0.4 mg PO DAILY 02/15/17 [History] Clopidogrel [Plavix] 75 mg PO DAILY #90 tablet 02/17/17 [Rx] amLODIPine [Norvasc] 5 mg PO BID 03/22/17 [History] Losartan Potassium [Cozaar] 100 mg PO DAILY 03/23/17 [History] hydroCHLOROthiazide [Hydrochlorothiazide] 25 mg PO DAILY 03/23/17 [History] Levothyroxine [Synthroid] 75 mcg PO DAILY@0630 #30 tablet 03/27/17 [Rx] Allergies/Adverse Reactions: 3 Allergy/AdvReac Type Severity Reaction Status Date / Time No Known Allergies Allergy Verified 02/15/17 12:10 - Respiratory Orders Smoking Cessation: Smoking cessation has been advised. For more information, call the [place] Tobacco Quit Line at 1-196-OAAP-NOW. - Advance Directives Code Status: Full Code - Mobility Orders Ambulate - Rehabiliation Orders Rehab Potential: Fair Rehab Orders: Evaluation for Physical Therapy, Evaluation for Occupational Therapy - Diet Orders Cardiac CERTIFICATION: I certify that the transfer of the above named patient to an Extended Care Facility is necessary for the continuing treatment of the diagnosis listed. The above information is true and accurate reflection of patient's current condition. Confidential - Redisclosure prohibited without a patient's written consent. <Richard Kimbrough P - Last Filed: 03/27/17 16:34> - Diagnosis (1) Syncope Status: Acute (2) Atrial fibrillation Status: Acute (3) Gross hematuria Status: Acute (4) Hypothyroidism Status: Acute (5) DVT prophylaxis Status: Acute - Respiratory Orders Smoking Cessation: Smoking cessation has been advised. For more information, call the [place] Tobacco Quit Line at 1-155-MDIYNOW. CERTIFICATION: I certify that the transfer of the above named patient to an Extended Care Facility is necessary for the continuing treatment of the diagnosis listed. The above information is true and accurate reflection of patient's current condition. Confidential - Redisclosure prohibited without a patient's written consent.
[2017-03-28] MEDS: Ampicillin/Sulbactam 3,000 MG in 0.9 % Sodium Chloride Mini Bag 100 ML IVPB SCH ×5 (00:27→23:49)
[2017-03-28] MEDS: Ipratropium/Albuterol Neb 3 ML IH SCH ×4 (03:50→21:08)
[2017-03-28 04:21] LABS: Basophils # 0.1 K/mcL (0.0-0.2); Basophils % 0.6 %; Eosinophils # 0.9 K/mcL (0.0-0.6); Eosinophils % 10.6 %; Hematocrit 26.8 % (37.5-50.1); Hemoglobin 8.8 g/dL (12.9-16.9); Lymphocytes % 12.4 %; Mean Corpuscular HGB Conc 32.8 g/dL (31.6-35.5); Mean Corpuscular Volume 91.5 fL (83.0-100.0); Mean Platelet Volume 11.1 fL (9.4-12.4); Monocytes # 0.8 K/mcL (0.0-1.3); Monocytes % 10.4 %; Platelet Count 192 K/mcL (140-400); Red Blood Count 2.93 M/mcL (4.19-5.50); Red Cell Distribution Width 13.7 % (11.5-14.5)
[2017-03-28 05:02] LABS: Alanine Aminotransferase 5 Units/L (7-52); Albumin 2.7 g/dL (3.5-5.7); Albumin/Globulin Ratio 0.9 (1.1-2.2); Alkaline Phosphatase 186 Units/L (34-104); Aspartate Amino Transferase 41 Units/L (13-39); BUN/Creatinine Ratio 26 (6-26); Bilirubin,Total 0.7 mg/dL (0.3-1.0); Blood Urea Nitrogen 22 mg/dL (8-23); Calcium 8.1 mg/dL (8.6-10.3); Carbon Dioxide 25 mEq/L (23-29); Chloride 107 mEq/L (98-107); Globulin 3.1 g/dL (2.4-3.5); Glucose 98 mg/dL (70-105); Osmolality,Calculated 289 (280-300); Potassium 4.2 mEq/L (3.5-5.1); Sodium 138 mEq/L (136-145); Total Protein 5.8 g/dL (6.4-8.9); eGFR For African Americans > 60 (> 60); eGFR For Non-African Americans > 60 (> 60)
--- NOTE | 2017-03-28 08:48 | Internal Med Progress Note ---
<Venu Andrea - Last Filed: 03/28/17 10:20> Date of Encounter: 03/28/17 Time of Encounter: 08:47 - Assessment and plan (1) Syncope Current Visit: Yes Status: Acute Assessment and plan: - Syncopal episode at home. Patient altered for interview, daughter at bedside was not present for syncopal event. - Pt was reportedly not feeling well for past week - Possibly secondary to bradycardia secondary to hypothyroidism vs infection vs arrythmia - Cardiology following, appreciate recommendations. - CTA negative for PE, mild bilateral pleural effusions. CT abdomen/pelvis showing bilateral renal cyst, possible BPH. No obvious infectious process revealed. - Pt is reportedly back at baseline per family. -Possible TIA etiology, CT head negative in ED. Repeat Head CT ordered today, no evidence of acute process - Echo shows EF 65%, valvular abnormalities. no carotid stenotic plaque on US in January. - Cardiology recommendations for bradycardia is to avoid BB for AFib, treat underlying thyroid - Neurology consulted, appreciate recommendations. Plan - We will be discharged when able with cardiac event monitor - Received a course of Unasyn for possible aspiration pneumonia Qualifiers: Syncope type: unspecified Qualified Code(s): R55 - Syncope and collapse (2) Sinus bradycardia Current Visit: Yes Status: Acute Assessment and plan: - Patient was sinus bradycardia on admission with rate in 40s,50s - EKG repeated in ED showing AFib, paroxysmal. - Possible etiology of hypothyroidism. TSH of 12 in [place] ED. Started on synthroid - Other etiology of shock secondary to infection - Has not required atropine since the first day of admission Plan - Cardiology following, Avoid AV node blockers - Continue synthroid - Patient to be discharged to rehabilitation with cardiac event monitor (3) Atrial fibrillation Current Visit: Yes Status: Acute Assessment and plan: Currently in NSR, however likely AFib on EKG in ED - WIll avoid AV danya blockade as patient has been bradycardic - Consider anticoagulation once more stable. CHADVASC 6 - Rate in 50s, 60s. Has not required atropine in past 24 hours. - H&H has been stable, most recently 8./. Plan - Avoiding AV danya blockers due to bradycardia - Holding off on anticoagulation at this time due to hematuria - Or urology, okay to restart aspirin and will restart Plavix once urine is clear for 2 days. - Patient had recent drug-eluting stent on March 01 - Patient will likely need to follow-up with his primary care physician regarding long-term anticoagulation. Discussed with family Qualifiers: Atrial fibrillation type: paroxysmal Qualified Code(s): I48.0 - Paroxysmal atrial fibrillation (4) Hypothermia Current Visit: Yes Status: Resolved Assessment and plan: Resolved. - Continue heating blanket as needed. - Possible secondary to shock, hypothyroid. Qualifiers: Encounter type: initial encounter Qualified Code(s): T68.XXXA - Hypothermia , initial encounter (5) Hypothyroidism Current Visit: Yes Status: Acute Assessment and plan: - TSH of 12 in [facility] ED - Free T4, T4, Free T3 all wnl - Started synthroid 75 on admission. Will continue - Continue to monitor. - Low suspicion for myxedema at this time. More likely subclinical hypothyroid Qualifiers: Hypothyroidism type: unspecified Qualified Code(s): E03.9 - Hypothyroidism , unspecified (6) CAD (coronary artery disease) Current Visit: Yes Status: Chronic Assessment and plan: EKG reviewed. No chest pain Continue ASA, plavix when hematuria resolves. Qualifiers: Coronary Disease-Associated Artery/Lesion type: [place] artery [place] vs. transplanted heart: [place] heart Associated angina: without angina Qualified Code(s): I25.10 - Atherosclerotic heart disease of [place] coronary artery without angina pectoris (7) PNA (pneumonia) Current Visit: Yes Status: Acute Assessment and plan: - Possible aspiration PNA as demonstrated on CXR in ED - Aspiration component given syncopal episode - WBC trended over weekend, most recently 8.0, afebrile. Hypothermic on presentation. VSS. Tolerating 2L O2. - Completed course of Unasyn while inpatient. - Blood cultures no growth Qualifiers: Pneumonia type: aspiration pneumonia Aspiration pneumonia type: unspecified Laterality: unspecified laterality Lung location: unspecified part of lung Qualified Code(s): J69.0 - Pneumonitis due to inhalation of food and vomit (8) Parkinson disease Current Visit: Yes Status: Chronic Assessment and plan: - Continue home meds. - Per neurology, will discontinue Mirapex (9) Hx of transient ischemic attack (TIA) Current Visit: Yes Status: Acute Assessment and plan: - Suspect source of syncope is more likely related to infectious vs thyroid versus TIA - Is resolved and currently at baseline mental status - CT head negative in ED, repeat CT also negative for acute process. - Will continue to monitor and continue aspirin and plavix when hematuria resolves as above (10) DVT prophylaxis Current Visit: Yes Status: Acute Assessment and plan: SCDs in the setting of hematuria - Time Spent With Patient 25 - 35 minutes - Subjective Interval history: Patient seen and examined at bedside. Patient was scheduled for discharge yesterday, however he is awaiting precertification for placement. He has no complaints this morning and is eager to go to rehab. - Constitutional Vitals: Temp Pulse Resp BP Pulse Ox 97.9 F 73 18 139/96 97 03/28/17 07:19 03/28/17 07:19 03/28/17 07:19 03/28/17 07:19 03/28/17 07:19 General appearance: Present: A&O X 3, no acute distress, answers questions appropriately Exam: Gen.: Vitals noted. No acute distress. AAOx3 HEENT: PERRL/EOMI, oropharynx clear, Normocephalic, atraumatic Cardiac: RRR, no murmur, +S1/S2 Pulmonary: CTA bilaterally, no wheezes, rales or rhonchi, equal chest expansion Abdomen: soft, nontender, BS noted, no guarding : Tomas catheter with red tinged urine. Extremities: no BLE edema, nontender calf, no cyanosis or clubbing Neuro: A&Ox3, moves all extremities, no focal deficits Psych: Appropriate mood and behavior Internal Medicine: Result - Labs CBC & Chem 7: 03/28/17 02:45 03/28/17 02:45 Labs: Short CBC 03/28/17 Range/Units 02:45 WBC 8.0 (4.3-11.1) K/mcL Hgb 8.8 L (12.9-16.9) g/dL Hct 26.8 L (37.5-50.1) % Plt Count 192 (140-400) K/mcL Neutrophils # 5.0 (1.6-8.9) K/mcL BMP 03/28/17 02:45 Sodium 138 Potassium 4.2 Chloride 107 Carbon Dioxide 25 BUN 22 Creatinine 0.86 Glucose 98 Calcium 8.1 L Liver Function 03/28/17 Range/Units 02:45 Total Bilirubin 0.7 (0.3-1.0) mg/dL AST 41 H (13-39) Units/L ALT 5 L (7-52) Units/L Alkaline Phosphatase 186 H (34-104) Units/L Albumin 2.7 L (3.5-5.7) g/dL - VTE Documentation of Mechanical Device: Intermittent pneumatic compression device Consult Discharge Plan - Plan Instructions: Levothyroxine (By mouth), Transient Ischemic Attack (DC), Transient Ischemic Attack (GEN), Atrial Fibrillation (DC), Hypothyroidism (DC), Chronic Hypertension (DC), Pneumonia (DC) Additional Instructions: Please follow up with your PCP after discharge. Take all medications as prescribed. You may restart your plavix tomorrow if your urine does not have any blood in it. Wear your heart monitor as instructed. Referrals: Jero Hernández, [Primary Care Provider] - Prescriptions: Levothyroxine [Synthroid] 75 mcg PO DAILY@629 #30 tablet <Jono Blood - Last Filed: 03/28/17 16:37> Date of Encounter: 03/28/17 - Assessment and plan (1) Acute metabolic encephalopathy Current Visit: Yes Status: Resolved Assessment and plan: Due to bradycardia and poor cerebral perfusion. (2) Syncope Current Visit: Yes Status: Resolved Qualifiers: Syncope type: unspecified Qualified Code(s): R55 - Syncope and collapse (3) Parkinson disease Current Visit: Yes Status: Chronic (4) CAD (coronary artery disease) Current Visit: Yes Status: Chronic Qualifiers: Coronary Disease-Associated Artery/Lesion type: [place] artery [place] vs. transplanted heart: [place] heart Associated angina: without angina Qualified Code(s): I25.10 - Atherosclerotic heart disease of [place] coronary artery without angina pectoris (5) HLD (hyperlipidemia) Current Visit: No Status: Chronic Qualifiers: Hyperlipidemia type: mixed hyperlipidemia Qualified Code(s): E78.2 - Mixed hyperlipidemia (6) PNA (pneumonia) Current Visit: Yes Status: Acute Qualifiers: Pneumonia type: aspiration pneumonia Aspiration pneumonia type: unspecified Laterality: unspecified laterality Lung location: unspecified part of lung Qualified Code(s): J69.0 - Pneumonitis due to inhalation of food and vomit (7) Hypothyroidism Current Visit: Yes Status: Acute Qualifiers: Hypothyroidism type: acquired Qualified Code(s): E03.9 - Hypothyroidism, unspecified (8) Atrial fibrillation Current Visit: Yes Status: Acute Qualifiers: Atrial fibrillation type: paroxysmal Qualified Code(s): I48.0 - Paroxysmal atrial fibrillation (9) Hypothermia Current Visit: Yes Status: Resolved Qualifiers: Encounter type: subsequent encounter Qualified Code(s): T68.XXXD - Hypothermia, subsequent encounter - Constitutional Vitals: Temp Pulse Resp BP Pulse Ox 97.5 F L 70 18 124/72 96 03/28/17 12:09 03/28/17 12:09 03/28/17 12:09 03/28/17 12:09 03/28/17 12:09 Internal Medicine: Result - Labs CBC & Chem 7: 03/28/17 02:45 03/28/17 02:45 Labs: Short CBC 03/28/17 Range/Units 02:45 WBC 8.0 (4.3-11.1) K/mcL Hgb 8.8 L (12.9-16.9) g/dL Hct 26.8 L (37.5-50.1) % Plt Count 192 (140-400) K/mcL Neutrophils # 5.0 (1.6-8.9) K/mcL BMP 03/28/17 02:45 Sodium 138 Potassium 4.2 Chloride 107 Carbon Dioxide 25 BUN 22 Creatinine 0.86 Glucose 98 Calcium 8.1 L Liver Function 03/28/17 Range/Units 02:45 Total Bilirubin 0.7 (0.3-1.0) mg/dL AST 41 H (13-39) Units/L ALT 5 L (7-52) Units/L Alkaline Phosphatase 186 H (34-104) Units/L Albumin 2.7 L (3.5-5.7) g/dL - Attending Attestation I examined this patient and my medical decision-making was reviewed with the Resident Physician on 03/28/17. I agree with the documented findings, disposition and treatment plan as described except to the extent set forth below. Mr Berkowitz is currently admitted for bradycardia and syncope. He has been treated for possible aspiration pneumonia now. He is awaiting precert for SNF. He is anxious to get going to get stronger. Exam Alert. Comfortable Mucus membranes dry Heart reg No wheeze I/P 1. Bradycardia 2. Syncope D/C to SNF when precert obtained.
[2017-03-28] MEDS: Finasteride 5 MG TABLET PO SCH (09:39)
[2017-03-28] MEDS: Carbidopa/Levodopa ER 50/200 TABLET PO SCH ×2 (09:39→19:47)
[2017-03-28] MEDS: Aspirin 81 MG TAB.CHEW PO SCH (09:40)
[2017-03-29] MEDS: Ipratropium/Albuterol Neb 3 ML IH SCH ×4 (03:43→21:39)
[2017-03-29] MEDS: Ampicillin/Sulbactam 3,000 MG in 0.9 % Sodium Chloride Mini Bag 100 ML IVPB SCH (05:43)
[2017-03-29] MEDS ORDERED: Acetaminophen 325 MG TABLET PO ONE (06:02)
[2017-03-29] MEDS: Finasteride 5 MG TABLET PO SCH (09:30)
[2017-03-29] MEDS: Aspirin 81 MG TAB.CHEW PO SCH (09:30)
[2017-03-29] MEDS: Carbidopa/Levodopa ER 50/200 TABLET PO SCH ×2 (09:30→20:25)
--- NOTE | 2017-03-29 11:51 | Cardiology Progress Note ---
Date of Encounter: 03/29/17 Time of Encounter: 11:49 Assessment and Plan (1) Sinus bradycardia Current Visit: Yes Status: Acute Reported to have sinus bradycardia with HR in the 30's after syncopal event. No rhythm strips or EKG for review that show bradycardia. EMS EKG shows HR 64, atrial fibrillation. Noted to have Sr to SB on telemetry. Periods of second degree type I block seen. He is not on AV danya blockade. TSH 12- hospitalist following. T3 and T4 normal. Discussed with Dr. Kimbrough. Likely subclinical. Recommend re-evaluation in a few weeks. Repeat TTE shows EF 65%. TTE 02/15/17- EF 60-65%. Mild MT, mild AR. Cardiology signed off over weekend , no urgent need for PPM seen at that time. Holter monitor recommended. Patient noted to have re-current bradycardia yesterday and today. C/o dizziness. Cardiology re-consulted. 24 hour telemetry review shows AVg HR 62. Min HR 28 bpm at 2:47pm. Pauses up to 3.5 seconds seen during daytime hours. Possible short periods of paroxysmal atrial flutter seen. Occasional second degree type II AV block seen this morning. He will likely require PPM. NPO after midnight for PPM in am. I discussed with patient and family and they agree with plan. (2) Atrial fibrillation Current Visit: Yes Status: Acute EKG from EMS shows atrial fibrillation. Currently NSR with frequent samll runs aflutter/ afib. Avoid AV danya ally due to reported bradycardia. There was concern for CVA/TIA and MRI cannot be completed. CHADS VASc=6 (HTN, age 2, CAD, possible CVA2). AC with NOAc or coumadin would be recommended. Unfortunately he developed gross hematuria during stay with anemia. Will hold off on AC at this time and re-evaluate at follow-up and once 2 week event monitor is reviewed. High CVA risk not on full anticoagulation, pt aware. Qualifiers: Atrial fibrillation type: paroxysmal Qualified Code(s): I48.0 - Paroxysmal atrial fibrillation (3) Syncope Current Visit: Yes Status: Resolved Possibly due to bradycardia. Planning for pPM as described above. TTE shows preserved EF. TTE 02/15/17 Showed EF 60-65%, mild mR, Mild AR. We will follow with you. Qualifiers: Syncope type: unspecified Qualified Code(s): R55 - Syncope and collapse (4) CAD (coronary artery disease) Current Visit: Yes Status: Chronic H/o remote cardiac stent. Was on asa, plavix, but these have been stopped due to hematuria and anemia. Unknown why he is not on statin or bb previously. Hold bb due to bradycardia. Consider adding statin therapy. Qualifiers: Coronary Disease-Associated Artery/Lesion type: [place] artery [place] vs. transplanted heart: [place] heart Associated angina: without angina Qualified Code(s): I25.10 - Atherosclerotic heart disease of [place] coronary artery without angina pectoris Discussion w patient/family: The assessment and plan as outlined above was discussed with the patient and/or family members who expressed understanding and agreement. All questions were answered. Thank you for involving us in the care of your patient. Please call with any questions. Subjective Principal diagnosis: bradycardia, syncope Interval history: Mr. Berkowitz denies chest pain or SOB. C/o dizziness when standing up with physical therapy today and while he sat in his chair. Cardiology re-consulted for recurrent bradycardia and second degree type II heart block. Objective Vital Signs, Last 4 Hours Temp Pulse Resp BP Pulse Ox 03/29/17 11:36 97.5 F L 84 16 138/64 99 General: Conversant, No Apparent Distress HEENT: Atraumatic, Normocephaly, Mucus Membranes Moist Neck: No JVD, Normal carotid pulses Cardiac: Normal S1 and S2, No Murmur, Other (SR to afib/flutter) Lungs: Normal Breath Sounds, No Wheeze, Rales, Rhonchi Neuro: Alert and responsive, No focal deficits noted Abdomen: Soft, Non-Tender Skin: No rashes noted on visualized skin Musculoskeletal: No Chest Wall Tenderness Extremities: No Clubbing, No Cyanosis, Normal Pulses, Other (1+ BLE edema. ) Results 03/28/17 02:45 03/28/17 02:45 - Imaging and Cardiology Echo: report reviewed - EKG Interpretation EKG results cardiology: personally reviewed - VTE Documentation of Mechanical Device: Intermittent pneumatic compression device Consult Discharge Plan - Plan Instructions: Levothyroxine (By mouth), Transient Ischemic Attack (DC), Transient Ischemic Attack (GEN), Atrial Fibrillation (DC), Hypothyroidism (DC), Chronic Hypertension (DC), Pneumonia (DC) Additional Instructions: Please follow up with your PCP after discharge. Take all medications as prescribed. You may restart your plavix tomorrow if your urine does not have any blood in it. Wear your heart monitor as instructed. Referrals: Jero Hernández, [Primary Care Provider] - Prescriptions: Levothyroxine [Synthroid] 75 mcg PO DAILY@0630 #30 tablet
[2017-03-29] MEDS ORDERED: *HR* Atropine Sulfate 1 MG/10 ML SYRINGE IVP PRN ×2 (15:55→15:58)
--- NOTE | 2017-03-29 16:11 | Internal Med Progress Note ---
<Venu Andrea - Last Filed: 03/29/17 16:08> Date of Encounter: 03/29/17 Time of Encounter: 13:00 - Assessment and plan (1) Syncope Current Visit: Yes Status: Resolved Assessment and plan: - Syncopal episode at home. Patient altered for interview, daughter at bedside was not present for syncopal event. - Possibly secondary to bradycardia secondary to hypothyroidism vs infection vs arrythmia - Cardiology reconsulted for arrhythmia yesterday, appreciate recommendations. - CTA negative for PE, mild bilateral pleural effusions. CT abdomen/pelvis showing bilateral renal cyst, possible BPH. No obvious infectious process revealed. - Pt is reportedly back at baseline per family. - Echo shows EF 65%, valvular abnormalities. no carotid stenotic plaque on US in January. - Cardiology recommendations for bradycardia is to avoid BB for AFib, treat underlying thyroid - Neurology consulted, appreciate recommendations. Plan - We will be discharged when able with cardiac event monitor - Received a course of Unasyn for possible aspiration pneumonia Qualifiers: Syncope type: unspecified Qualified Code(s): R55 - Syncope and collapse (2) Sinus bradycardia Current Visit: Yes Status: Acute Assessment and plan: - Patient was sinus bradycardia on admission with rate in 40s,50s - EKG repeated in ED showing AFib, paroxysmal. - On monitor today, patient has been in second degree AV block, AFib, sinus - Patient has Atropine 0.5mg IV PRN. Plan - Cardiology following, Avoid AV node blockers - Continue synthroid -Cardiology seen, will plan for pacemaker placement tomorrow. NPO midnight. - Patient to be discharged to rehabilitation with cardiac event monitor (3) Atrial fibrillation Current Visit: Yes Status: Acute Assessment and plan: Currently in NSR, however likely AFib on EKG in ED - WIll avoid AV danya blockade as patient has been bradycardic - Consider anticoagulation once more stable. CHADVASC 6 - Rate in 50s, 60s. Has not required atropine in past 24 hours. - H&H has been stable, most recently 8.8/.8 Plan - Avoiding AV danya blockers due to bradycardia - Holding off on anticoagulation at this time due to hematuria - Or urology, okay to restart aspirin and will restart Plavix once urine is clear for 2 days. - Patient had recent drug-eluting stent on March 01 - Patient will likely need to follow-up with his primary care physician regarding long-term anticoagulation. Discussed with family Qualifiers: Atrial fibrillation type: paroxysmal Qualified Code(s): I48.0 - Paroxysmal atrial fibrillation (4) Hypothermia Current Visit: Yes Status: Resolved Assessment and plan: Resolved. - Continue heating blanket as needed. - Possible secondary to shock, hypothyroid. Qualifiers: Encounter type: subsequent encounter Qualified Code(s): T68.XXXD - Hypothermia, subsequent encounter (5) Hypothyroidism Current Visit: Yes Status: Acute Assessment and plan: - TSH of 12 in [place] ED - Free T4, T4, Free T3 all wnl - Started synthroid 75 on admission. Will continue - Continue to monitor. - Low suspicion for myxedema at this time. More likely subclinical hypothyroid Qualifiers: Hypothyroidism type: acquired Qualified Code(s): E03.9 - Hypothyroidism, unspecified (6) CAD (coronary artery disease) Current Visit: Yes Status: Chronic Assessment and plan: EKG reviewed. No chest pain Continue ASA, plavix when hematuria resolves. Qualifiers: Coronary Disease-Associated Artery/Lesion type: [place] artery [place] vs. transplanted heart: [place] heart Associated angina: without angina Qualified Code(s): I25.10 - Atherosclerotic heart disease of [place] coronary artery without angina pectoris (7) PNA (pneumonia) Current Visit: Yes Status: Resolved Assessment and plan: - Possible aspiration PNA as demonstrated on CXR in ED - Aspiration component given syncopal episode - WBC trended over weekend, most recently 8.0, afebrile. Hypothermic on presentation. VSS. Tolerating 2L O2. - Completed course of Unasyn while inpatient. - Blood cultures no growth Qualifiers: Pneumonia type: aspiration pneumonia Aspiration pneumonia type: unspecified Laterality: unspecified laterality Lung location: unspecified part of lung Qualified Code(s): J69.0 - Pneumonitis due to inhalation of food and vomit (8) Parkinson disease Current Visit: Yes Status: Chronic Assessment and plan: - Continue home meds. - Per neurology, will discontinue Mirapex (9) Hx of transient ischemic attack (TIA) Current Visit: Yes Status: Acute Assessment and plan: - Suspect source of syncope is more likely related to infectious vs arrythmia - Is resolved and currently at baseline mental status - CT head negative in ED, repeat CT also negative for acute process. - Will continue to monitor and continue aspirin and plavix when hematuria resolves as above (10) DVT prophylaxis Current Visit: Yes Status: Acute Assessment and plan: SCDs in the setting of hematuria - Time Spent With Patient 25 - 35 minutes - Subjective Interval history: Patient seen and examined at bedside. Patient was scheduled for discharge however he notably went into second-degree AV block before discharge actually. He is currently asymptomatic. During this interview patient currently complaining of symptoms of chest pain, shortness of breath, nausea, vomiting, fevers, chills. - Constitutional Vitals: Temp Pulse Resp BP Pulse Ox 97.4 F L 54 16 152/68 95 03/29/17 15:16 03/29/17 15:16 03/29/17 15:16 03/29/17 15:16 03/29/17 15:16 General appearance: Present: A&O X 3, no acute distress, answers questions appropriately Exam: Gen.: Vitals noted. No acute distress. AAOx3 HEENT: PERRL/EOMI, oropharynx clear, Normocephalic, atraumatic Cardiac: RRR, bradycardic, no murmur, +S1/S2 Pulmonary: CTA bilaterally, no wheezes, rales or rhonchi, equal chest expansion Abdomen: soft, nontender, BS noted, no guarding Extremities: no BLE edema, nontender calf, no cyanosis or clubbing Neuro: A&Ox3, moves all extremities, no focal deficits Psych: Appropriate mood and behavior Internal Medicine: Result - Labs CBC & Chem 7: 03/28/17 02:45 03/28/17 02:45 - VTE Documentation of Mechanical Device: Intermittent pneumatic compression device Consult Discharge Plan - Plan Instructions: Levothyroxine (By mouth), Transient Ischemic Attack (DC), Transient Ischemic Attack (GEN), Atrial Fibrillation (DC), Hypothyroidism (DC), Chronic Hypertension (DC), Pneumonia (DC) Additional Instructions: Please follow up with your PCP after discharge. Take all medications as prescribed. You may restart your plavix tomorrow if your urine does not have any blood in it. Wear your heart monitor as instructed. Referrals: Jero Hernández DO [Primary Care Provider] - Prescriptions: Levothyroxine [Synthroid] 75 mcg PO DAILY@629 #30 tablet <Jono Blood - Last Filed: 03/29/17 17:35> Date of Encounter: 03/29/17 - Assessment and plan (1) Sick sinus syndrome Current Visit: Yes Status: Suspected Assessment and plan: Plan for pacer tomorrow. (2) Syncope Current Visit: Yes Status: Resolved Qualifiers: Syncope type: unspecified Qualified Code(s): R55 - Syncope and collapse (3) Parkinson disease Current Visit: Yes Status: Chronic (4) CAD (coronary artery disease) Current Visit: Yes Status: Chronic Qualifiers: Coronary Disease-Associated Artery/Lesion type: [place] artery [place] vs. transplanted heart: [place] heart Associated angina: without angina Qualified Code(s): I25.10 - Atherosclerotic heart disease of [place] coronary artery without angina pectoris (5) HLD (hyperlipidemia) Current Visit: No Status: Chronic Qualifiers: Hyperlipidemia type: mixed hyperlipidemia Qualified Code(s): E78.2 - Mixed hyperlipidemia (6) PNA (pneumonia) Current Visit: Yes Status: Resolved Qualifiers: Pneumonia type: aspiration pneumonia Aspiration pneumonia type: unspecified Laterality: unspecified laterality Lung location: unspecified part of lung Qualified Code(s): J69.0 - Pneumonitis due to inhalation of food and vomit (7) Hypothyroidism Current Visit: Yes Status: Acute Qualifiers: Hypothyroidism type: acquired Qualified Code(s): E03.9 - Hypothyroidism, unspecified (8) Atrial fibrillation Current Visit: Yes Status: Acute Qualifiers: Atrial fibrillation type: paroxysmal Qualified Code(s): I48.0 - Paroxysmal atrial fibrillation (9) Hypothermia Current Visit: Yes Status: Resolved Qualifiers: Encounter type: subsequent encounter Qualified Code(s): T68.XXXD - Hypothermia, subsequent encounter - Constitutional Vitals: Temp Pulse Resp BP Pulse Ox 97.4 F L 54 16 152/68 95 03/29/17 15:16 03/29/17 15:16 03/29/17 16:19 03/29/17 15:16 03/29/17 16:19 Internal Medicine: Result - Labs CBC & Chem 7: 03/28/17 02:45 03/28/17 02:45 - Attending Attestation I examined this patient and my medical decision-making was reviewed with the Resident Physician on 03/29/17. I agree with the documented findings, disposition and treatment plan as described except to the extent set forth below. Mr Berkowitz is currently admitted for syncope most likely related to bradycardia from sick sinus syndrome. He remains moderate to high risk due to potential for worsening cardiac status. Mr Berkowitz is more tired today. No fever. He is having more bradycardia and there is plan for pacer tomorrow. Exam alert. Comfortable Mucus membranes dry Heart douglas and irreg Lungs clear I/P 1. Bradycardia due to SSS Pacer tomorrow Further diagnoses and plan as above.
--- NOTE | 2017-03-29 16:43 | Electrocardiograph Report ---
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
--- NOTE | 2017-03-29 16:44 | Electrocardiograph Report ---
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
[2017-03-30] MEDS: Ipratropium/Albuterol Neb 3 ML IH SCH ×4 (03:14→23:15)
[2017-03-30 04:33] LABS: Hematocrit 28.2 % (37.5-50.1); Hemoglobin 9.3 g/dL (12.9-16.9); Mean Corpuscular Hemoglobin 30.5 pg (28.0-33.3); Mean Corpuscular Volume 92.5 fL (83.0-100.0); Mean Platelet Volume 10.2 fL (9.4-12.4); Platelet Count 243 K/mcL (140-400); Red Blood Count 3.05 M/mcL (4.19-5.50); Red Cell Distribution Width 13.2 % (11.5-14.5)
[2017-03-30 04:54] LABS: BUN/Creatinine Ratio 28 (6-26); Blood Urea Nitrogen 22 mg/dL (8-23); Calcium 8.1 mg/dL (8.6-10.3); Carbon Dioxide 25 mEq/L (23-29); Chloride 106 mEq/L (98-107); Glucose 97 mg/dL (70-105); Osmolality,Calculated 289 (280-300); Potassium 4.1 mEq/L (3.5-5.1); Sodium 138 mEq/L (136-145); eGFR For African Americans > 60 (> 60); eGFR For Non-African Americans > 60 (> 60)
[2017-03-30] MEDS ORDERED: CeFAZolin Syr 2,000MG/20 ML 2,000 MG/20 ML SYRINGE IVPB ONE (07:41)
--- NOTE | 2017-03-30 08:48 | Internal Med Progress Note ---
<Venu Andrea - Last Filed: 03/30/17 14:29> Date of Encounter: 03/30/17 Time of Encounter: 08:46 - Assessment and plan (1) Sinus bradycardia Current Visit: Yes Status: Acute Assessment and plan: - Patient was sinus bradycardia on admission with rate in 40s,50s - EKG repeated in ED showing AFib, paroxysmal. - On monitor today, patient has been in second degree AV block, AFib, sinus - Multiple pauses noted on telemetry overnight with length of 2.5, 3.5 seconds - Patient has Atropine 0.5mg IV PRN. Plan - Cardiology following, Avoid AV node blockers - Continue synthroid -Cardiology seen, will plan for pacemaker placement this afternoon, nothing by mouth - Patient to be discharged to rehabilitation with cardiac event monitor - Possible discharge tomorrow if he remains stable after pacemaker and is cleared by cardiology (2) Atrial fibrillation Current Visit: Yes Status: Acute Assessment and plan: Currently in NSR, however likely AFib on EKG in ED - WIll avoid AV danya blockade as patient has been bradycardic - Consider anticoagulation once more stable. CHADVASC 6 - Rate in 50s, 60s. Has not required atropine in past 24 hours. - H&H has been stable, most recently 9.3/28.2 Plan - Avoiding AV danya blockers due to bradycardia - Holding off on anticoagulation at this time due to hematuria - Or urology, okay to restart aspirin and will restart Plavix once urine is clear for 2 days. - Patient had recent drug-eluting stent on March 01 - Patient will likely need to follow-up with his primary care physician regarding long-term anticoagulation. Discussed with family Qualifiers: Atrial fibrillation type: paroxysmal Qualified Code(s): I48.0 - Paroxysmal atrial fibrillation (3) Syncope Current Visit: Yes Status: Resolved Assessment and plan: - Syncopal episode at home. Patient altered for interview, daughter at bedside was not present for syncopal event. - Possibly secondary to bradycardia secondary to hypothyroidism vs infection vs arrythmia - Cardiology reconsulted for arrhythmia yesterday, appreciate recommendations. - CTA negative for PE, mild bilateral pleural effusions. CT abdomen/pelvis showing bilateral renal cyst, possible BPH. No obvious infectious process revealed. - Pt is reportedly back at baseline per family. - Echo shows EF 65%, valvular abnormalities. no carotid stenotic plaque on US in January. - Cardiology recommendations for bradycardia is to avoid BB for AFib, treat underlying thyroid - Neurology consulted, appreciate recommendations. Plan - We will be discharged when able with cardiac event monitor - Plan for pacemaker implantation this afternoon - Received a course of Unasyn for possible aspiration pneumonia Qualifiers: Syncope type: unspecified Qualified Code(s): R55 - Syncope and collapse (4) Hypothermia Current Visit: Yes Status: Resolved Assessment and plan: Resolved. - Continue heating blanket as needed. - Possible secondary to shock, hypothyroid. Qualifiers: Encounter type: subsequent encounter Qualified Code(s): T68.XXXD - Hypothermia, subsequent encounter (5) Hypothyroidism Current Visit: Yes Status: Acute Assessment and plan: - TSH of 12 in [place] ED - Free T4, T4, Free T3 all wnl - Started synthroid 75 on admission. Will continue - Continue to monitor. - Low suspicion for myxedema at this time. More likely subclinical hypothyroid Qualifiers: Hypothyroidism type: acquired Qualified Code(s): E03.9 - Hypothyroidism, unspecified (6) CAD (coronary artery disease) Current Visit: Yes Status: Chronic Assessment and plan: EKG reviewed. No chest pain Continue ASA, plavix when hematuria resolves. Qualifiers: Coronary Disease-Associated Artery/Lesion type: [place] artery [place] vs. transplanted heart: [place] heart Associated angina: without angina Qualified Code(s): I25.10 - Atherosclerotic heart disease of [place] coronary artery without angina pectoris (7) PNA (pneumonia) Current Visit: Yes Status: Resolved Assessment and plan: - Possible aspiration PNA as demonstrated on CXR in ED - Aspiration component given syncopal episode - WBC trended over weekend, most recently 8.0, afebrile. Hypothermic on presentation. VSS. Tolerating 2L O2. - Completed course of Unasyn while inpatient. - Blood cultures no growth Qualifiers: Pneumonia type: aspiration pneumonia Aspiration pneumonia type: unspecified Laterality: unspecified laterality Lung location: unspecified part of lung Qualified Code(s): J69.0 - Pneumonitis due to inhalation of food and vomit (8) Parkinson disease Current Visit: Yes Status: Chronic Assessment and plan: - Continue home meds. - Per neurology, will discontinue Mirapex (9) Hx of transient ischemic attack (TIA) Current Visit: Yes Status: Acute Assessment and plan: - Suspect source of syncope is more likely related to infectious vs arrythmia - Is resolved and currently at baseline mental status - CT head negative in ED, repeat CT also negative for acute process. - Will continue to monitor and continue aspirin and plavix when hematuria resolves as above (10) DVT prophylaxis Current Visit: Yes Status: Acute Assessment and plan: SCDs in the setting of hematuria - Time Spent With Patient 25 - 35 minutes - Subjective Interval history: Patient seen and examined at bedside. He reports that he is feeling well this morning with no complaints of chest pain, shortness of breath, palpitations. He understands this morning that he has to have a pacemaker placed and is agreeable. All questions were answered at this time. - Constitutional Vitals: Temp Pulse Resp BP Pulse Ox 97.9 F 63 16 144/79 99 03/30/17 06:37 03/30/17 06:37 03/30/17 06:37 03/30/17 06:37 03/30/17 06:37 General appearance: Present: A&O X 3, no acute distress, answers questions appropriately Exam: Gen.: Vitals noted. No acute distress. AAOx3 HEENT: PERRL/EOMI, oropharynx clear, Normocephalic, atraumatic Cardiac: RRR, no murmur, +S1/S2. Heart rate borderline low Pulmonary: very mild rhonchi. Otherwise CTA bilaterally, no wheezes, rales or rhonchi, equal chest expansion Abdomen: soft, nontender, BS noted, no guarding Extrremities: 1+ BLE edema, nontender calf, no cyanosis or clubbing Neuro: A&Ox3, moves all extremities, no focal deficits Psych: Appropriate mood and behavior Internal Medicine: Result - Labs CBC & Chem 7: 03/30/17 04:23 03/30/17 04:23 Labs: Short CBC 03/30/17 Range/Units 04:23 WBC 7.4 (4.3-11.1) K/mcL Hgb 9.3 L (12.9-16.9) g/dL Hct 28.2 L (37.5-50.1) % Plt Count 243 (140-400) K/mcL BMP 03/30/17 04:23 Sodium 138 Potassium 4.1 Chloride 106 Carbon Dioxide 25 BUN 22 Creatinine 0.78 Glucose 97 Calcium 8.1 L - VTE Documentation of Mechanical Device: Intermittent pneumatic compression device Consult Discharge Plan - Plan Instructions: Levothyroxine (By mouth), Transient Ischemic Attack (DC), Transient Ischemic Attack (GEN), Atrial Fibrillation (DC), Hypothyroidism (DC), Chronic Hypertension (DC), Pneumonia (DC) Additional Instructions: Please follow up with your PCP after discharge. Take all medications as prescribed. You may restart your plavix tomorrow if your urine does not have any blood in it. Wear your heart monitor as instructed. Referrals: Jero Hernández DO [Primary Care Provider] - Prescriptions: Levothyroxine [Synthroid] 75 mcg PO DAILY@629 #30 tablet <JeremiJono - Last Filed: 03/30/17 16:11> Date of Encounter: 03/30/17 - Assessment and plan (1) Sick sinus syndrome Current Visit: Yes Status: Suspected (2) Syncope Current Visit: Yes Status: Resolved Qualifiers: Syncope type: unspecified Qualified Code(s): R55 - Syncope and collapse (3) Parkinson disease Current Visit: Yes Status: Chronic (4) CAD (coronary artery disease) Current Visit: Yes Status: Chronic Qualifiers: Coronary Disease-Associated Artery/Lesion type: [place] artery [place] vs. transplanted heart: [place] heart Associated angina: without angina Qualified Code(s): I25.10 - Atherosclerotic heart disease of [place] coronary artery without angina pectoris (5) HLD (hyperlipidemia) Current Visit: No Status: Chronic Qualifiers: Hyperlipidemia type: mixed hyperlipidemia Qualified Code(s): E78.2 - Mixed hyperlipidemia (6) PNA (pneumonia) Current Visit: Yes Status: Resolved Qualifiers: Pneumonia type: aspiration pneumonia Aspiration pneumonia type: unspecified Laterality: unspecified laterality Lung location: unspecified part of lung Qualified Code(s): J69.0 - Pneumonitis due to inhalation of food and vomit (7) Hypothyroidism Current Visit: Yes Status: Acute Qualifiers: Hypothyroidism type: acquired Qualified Code(s): E03.9 - Hypothyroidism, unspecified (8) Atrial fibrillation Current Visit: Yes Status: Acute Qualifiers: Atrial fibrillation type: paroxysmal Qualified Code(s): I48.0 - Paroxysmal atrial fibrillation - Constitutional Vitals: Temp Pulse Resp BP Pulse Ox 97.8 F 58 18 137/73 97 03/30/17 15:04 03/30/17 15:04 03/30/17 15:38 03/30/17 15:04 03/30/17 15:38 Internal Medicine: Result - Labs CBC & Chem 7: 03/30/17 04:23 03/30/17 04:23 Labs: Short CBC 03/30/17 Range/Units 04:23 WBC 7.4 (4.3-11.1) K/mcL Hgb 9.3 L (12.9-16.9) g/dL Hct 28.2 L (37.5-50.1) % Plt Count 243 (140-400) K/mcL BMP 03/30/17 04:23 Sodium 138 Potassium 4.1 Chloride 106 Carbon Dioxide 25 BUN 22 Creatinine 0.78 Glucose 97 Calcium 8.1 L - Impressions Impressions Chest X-Ray 03/30/17 11:54 IMPRESSION: No postprocedural pneumothorax identified following dual lead implanted cardiac device placement on the left chest. Cardiomegaly with vascular congestion and prominent diffuse increased interstitial markings, with asymmetric prominence in the right upper lobe. Changes could be related to asymmetric pulmonary edema, though superimposed pneumonia cannot be excluded. D/ / Fredy Mcgrath MD / Fredy Mcgrath MD Interpreting Provider: Fredy Mcgrath MD - Attending Attestation I examined this patient and my medical decision-making was reviewed with the Resident Physician on 03/30/17. I agree with the documented findings, disposition and treatment plan as described except to the extent set forth below. Mr Berkowitz is currently admitted for syncope related to sick sinus syndrome. He remains moderate to high risk due to potential for worsening clinical status. Mr Berkowitz has had a pacer placed today. He has tolerated it OK. No fever. No CP. Wants to get up and move more. Exam Alert. Comfortable Heart reg No wheeze Abd soft I/P 1. Sick sinus 2. Parkinsons Further diagnoses and plan as above.
[2017-03-30] MEDS: Carbidopa/Levodopa ER 50/200 TABLET PO SCH ×2 (09:05→20:29)
[2017-03-30] MEDS: Aspirin 81 MG TAB.CHEW PO SCH (09:05)
[2017-03-30] MEDS: Finasteride 5 MG TABLET PO SCH (09:05)
--- NOTE | 2017-03-30 09:44 | Event Note ---
Date of Encounter: 03/30/17 Time of Encounter: 09:33 - Cardiology Event Note Mr. Berkowitz denies problems overnight. Telemetry review shows avg HR 64 bpm, min HR 21 bpm at 2:08pm. Noted to have brief atrial flutter at times. Multiple pauses up to 3.5 seconds seen. NPO for PPM later today. Patient denies questions.
[2017-03-30] MEDS ORDERED: 0.9 % Sodium Chloride 1,000 ML ONE (10:50)
[2017-03-30] MEDS ORDERED: Water for inj. (sterile) 10 ML IV ONE (10:50)
[2017-03-30] MEDS ORDERED: 0.9 % Sodium Chloride 500 ML ONE (10:50)
[2017-03-30] MEDS ORDERED: *HR* Midazolam HCl 2 MG/2 ML VIAL ONE (10:55)
--- NOTE | 2017-03-30 11:07 | Pre-Sedation Evaluation ---
Pre-sedation evaluation - Pre-sedation checklist Date of procedure: 03/30/17 Procedure: PACER Recent Vitals: Last Vital Signs Temp 97.9 F 03/30/17 06:37 Pulse 63 03/30/17 06:37 Resp 16 03/30/17 06:37 BP 144/79 03/30/17 06:37 Pulse Ox 99 03/30/17 09:00 H&P (including ROS) documented in medical record: Yes Previous reaction to sedatives/anesthetics: No Dietary Status: NPO after Midnight Airway Assessment: Patient can open mouth completely, TMJ function normal, Micrognathia (under-bite, receding chin) absent Dentition: No loose teeth or bridges Possible difficult airway: No ASA Classification *see protocol: CLASS II-Mild systemic disease Plan of Care: Pt appropriate candidate for procedure/moderate/conscious sedation , Risks/benefits of procedure/sedation discussed w/ patient/family
[2017-03-30] MEDS ORDERED: *HR* FentaNYL (PF) 100 MCG/2 ML VIAL ONE (11:15)
[2017-03-30] MEDS ORDERED: *HR* HYDROcodone/Acet 5/325 mg TABLET PO PRN (16:56)
[2017-03-30] MEDS: CeFAZolin Premix DUPLEX 2,000 MG/50 ML BAG IVPB SCH (17:13)
--- NOTE | 2017-03-30 19:35 | Electrocardiograph Report ---
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
[2017-03-30] MEDS: amLODIPine 5 MG TABLET PO SCH (20:29)
[2017-03-31] MEDS: CeFAZolin Premix DUPLEX 2,000 MG/50 ML BAG IVPB SCH (00:22)
[2017-03-31] MEDS: Ipratropium/Albuterol Neb 3 ML IH SCH ×3 (04:11→15:53)
[2017-03-31 05:16] LABS: Basophils # 0.1 K/mcL (0.0-0.2); Basophils % 0.6 %; Eosinophils # 0.4 K/mcL (0.0-0.6); Eosinophils % 5.3 %; Hematocrit 29.2 % (37.5-50.1); Hemoglobin 9.6 g/dL (12.9-16.9); Immature Granulocytes % 3.2 % (0-4); Lymphocytes # 1.8 K/mcL (0.6-4.6); Lymphocytes % 22.6 %; Mean Corpuscular HGB Conc 32.9 g/dL (31.6-35.5); Mean Corpuscular Hemoglobin 30.3 pg (28.0-33.3); Mean Corpuscular Volume 92.1 fL (83.0-100.0); Monocytes # 0.6 K/mcL (0.0-1.3); Monocytes % 7.8 %; Neutrophils # 4.9 K/mcL (1.6-8.9); Platelet Count 313 K/mcL (140-400); Red Blood Count 3.17 M/mcL (4.19-5.50); Red Cell Distribution Width 13.2 % (11.5-14.5); Segmented Neutrophils % 60.5 %
[2017-03-31 05:48] LABS: BUN/Creatinine Ratio 21 (6-26); Blood Urea Nitrogen 19 mg/dL (8-23); Calcium 8.3 mg/dL (8.6-10.3); Carbon Dioxide 26 mEq/L (23-29); Chloride 105 mEq/L (98-107); Glucose 100 mg/dL (70-105); Osmolality,Calculated 284 (280-300); Potassium 4.3 mEq/L (3.5-5.1); Sodium 136 mEq/L (136-145); eGFR For African Americans > 60 (> 60); eGFR For Non-African Americans > 60 (> 60)
[2017-03-31] MEDS ORDERED: Furosemide 20 MG/2 ML VIAL IVP ONE (09:02)
[2017-03-31] MEDS: Finasteride 5 MG TABLET PO SCH (09:24)
[2017-03-31] MEDS: amLODIPine 5 MG TABLET PO SCH (09:24)
[2017-03-31] MEDS: Carbidopa/Levodopa ER 50/200 TABLET PO SCH (09:24)
[2017-03-31] MEDS: Aspirin 81 MG TAB.CHEW PO SCH (09:25)
--- NOTE | 2017-03-31 09:50 | Cardiology Progress Note ---
Date of Encounter: 03/31/17 Time of Encounter: 09:47 Assessment and Plan (1) Sinus bradycardia Current Visit: Yes Status: Acute Reported to have sinus bradycardia with HR in the 30's after syncopal event at home. No rhythm strips or EKG for review that show bradycardia. During hospital stay he did have bradycardia with HR as low as 25 BPM during daytime hours. Pauses up to 3.5 seconds seen. He was also seen to have second degree type I block. He is not on AV danya blockade. TSH 12- hospitalist following. T3 and T4 normal. Discussed with Dr. Kimbrough. Likely subclinical. Recommend re-evaluation in a few weeks. Repeat TTE shows EF 65%. TTE 02/15/17- EF 60-65%. Mild MT, mild AR. S/p dual chamber PPM placement. No complications from his procedure. CXR was negative for pnuemothorax. There was increased interstitial marking suggesting increased assymmetrical pulmonary edema vs PNA. Discussed with primary team. He was treated with IV antibiotic during his stay. he is noted to have Mild BLE edema, family reports is chronic. Will add low dose IV lasix IV x1 and oral lasix PRN edema. Device check showed normal funcion. Out-patient f/u will be scheduled with [facility]. No driving for at least two weeks. No lifting over 5 lbs with left arm for one month. He can remove dressing in 48hours. Steri strips will fall off in about 10 -15 days. Keep incision clean and dry. Reportable symptoms include redness, drainage, or edema at incision site. Please call with questions. (2) Atrial fibrillation Current Visit: Yes Status: Acute EKG from EMS shows atrial fibrillation. Currently NSR. Periods of rate controlled atrial flutter seen. Avoid AV danya ally due to reported bradycardia. There was concern for CVA/TIA and MRI cannot be completed. CHADS VASc=6 (HTN, age 2, CAD, possible CVA2). AC with NOAc or coumadin would be recommended. Unfortunately he developed gross hematuria during stay with anemia. Will hold off on AC at this time and re-evaluate at follow-up and once 2 week event monitor is reviewed. High CVA risk not on full anticoagulation, pt aware. Qualifiers: Atrial fibrillation type: paroxysmal Qualified Code(s): I48.0 - Paroxysmal atrial fibrillation (3) Syncope Current Visit: Yes Status: Resolved Possibly due to bradycardia. Planning for pPM as described above. TTE shows preserved EF. TTE 02/15/17 Showed EF 60-65%, mild mR, Mild AR. We will follow with you. Qualifiers: Syncope type: unspecified Qualified Code(s): R55 - Syncope and collapse (4) CAD (coronary artery disease) Current Visit: Yes Status: Chronic H/o remote cardiac stent. Was on asa, plavix, but these have been stopped due to hematuria and anemia. Unknown why he is not on statin or bb previously. Hold bb due to bradycardia. Consider adding statin therapy. Qualifiers: Coronary Disease-Associated Artery/Lesion type: [place] artery [place] vs. transplanted heart: [place] heart Associated angina: without angina Qualified Code(s): I25.10 - Atherosclerotic heart disease of [place] coronary artery without angina pectoris Discussion w patient/family: The assessment and plan as outlined above was discussed with the patient and/or family members who expressed understanding and agreement. All questions were answered. Thank you for involving us in the care of your patient. Please call with any questions. Subjective Principal diagnosis: bradycardia, syncope Interval history: Mr. Berkowitz denies chest pain or SOB. S/p dual chamber PPM yesterday. No complications. SOn at bedside. All questions answered. Objective Vital Signs, Last 4 Hours Temp Pulse Resp BP Pulse Ox 03/31/17 08:00 90 03/31/17 06:00 98.1 F 69 15 144/66 90 General: Conversant, No Apparent Distress HEENT: Atraumatic, Normocephaly, Mucus Membranes Moist Neck: No JVD, Normal carotid pulses Cardiac: Reg Rate and Rhythm, Normal S1 and S2, No Murmur, Other (SR to paced. AR dressing D/I. No redness seen. ) Lungs: Normal Breath Sounds, No Wheeze, Rales, Rhonchi Neuro: Alert and responsive, No focal deficits noted Abdomen: Soft, Non-Tender Skin: No rashes noted on visualized skin Musculoskeletal: No Chest Wall Tenderness Extremities: No Clubbing, No Cyanosis, Normal Pulses, Other (1+ BLE edema) Results 03/31/17 04:50 03/31/17 04:50 Lab Results 03/31/17 03/31/17 04:50 04:50 WBC 8.1 Hgb 9.6 L Hct 29.2 L Plt Count 313 Sodium 136 Potassium 4.3 Chloride 105 Carbon Dioxide 26 BUN 19 Creatinine 0.91 Glucose 100 Calcium 8.3 L Echocardiogram Limited Views 03/23/17 00:00 Impressions: LVEF 60-65%. Left Ventricular Wall Motion: Rest Echo Findings All wall segments showed normal motion. Findings: Study Quality * Technically adequate exam. ECG Findings * Normal sinus rhythm. Left Ventricle * LVEF 60-65%. * Mild basal septal hypertophy. Chest X-Ray 03/31/17 06:00 IMPRESSION: Pacer wires in stable position. No pneumothorax seen. Bilateral lung infiltrates right worse than left questioning asymmetric pulmonary edema versus pneumonia. D/ / 03/31/2017 08:35:38 Wes Suh MD / tania Interpreting Provider: Wes Suh MD - Imaging and Cardiology Chest Xray: report reviewed Echo: report reviewed - EKG Interpretation EKG results cardiology: personally reviewed - VTE Documentation of Mechanical Device: Intermittent pneumatic compression device Consult Discharge Plan - Plan Instructions: Levothyroxine (By mouth), Transient Ischemic Attack (DC), Transient Ischemic Attack (GEN), Atrial Fibrillation (DC), Hypothyroidism (DC), Chronic Hypertension (DC), Pneumonia (DC) Additional Instructions: Please follow up with your PCP after discharge. Take all medications as prescribed. You may restart your plavix tomorrow if your urine does not have any blood in it. Wear your heart monitor as instructed. Referrals: Jero Hernández DO [Primary Care Provider] - Prescriptions: Levothyroxine [Synthroid] 75 mcg PO DAILY@629 #30 tablet
--- NOTE | 2017-03-31 11:17 | Neurology Progress Note ---
<Wilfredo Huddleston - Last Filed: 03/31/17 11:13> Date of Encounter: 03/31/17 Time of Encounter: 11:13 Assessment and Plan (1) Acute encephalopathy Status: Acute Results this time. Patient appears to be at his baseline. There is some reports of delirium episodes which could be exacerbated by his recent procedure with sedating medications. Mirapex had been stopped due to hallucinations and bradycardia/syncope these have resolved at this time and the patient had a permanent pacemaker placed yesterday so would recommend restarting Mirapex at his home dose although would recommend only dosing it every morning to avoid side effects at night. Continue Sinemet. No further neurologic testing is indicated. Verbal reassurance was given to the patient and the patient's son. Plan was discussed with the primary team. (2) Syncope Status: Resolved Qualifiers: Syncope type: unspecified Qualified Code(s): R55 - Syncope and collapse (3) Parkinson disease Status: Chronic (4) Atrial fibrillation Status: Acute Qualifiers: Atrial fibrillation type: paroxysmal Qualified Code(s): I48.0 - Paroxysmal atrial fibrillation Subjective Principal diagnosis: bradycardia, syncope Interval history: Patient seen and examined at bedside. Patient appeared stable from last evaluation one week ago. He is alert and oriented 3 and is able to ask intelligent questions about his care. His speech did not appear to be slightly slow however this was unchanged from one week ago. He had no complaints at this time. Objective - Constitutional Vitals: Temp Pulse Resp BP Pulse Ox 98.1 F 69 15 144/66 90 03/31/17 06:00 03/31/17 06:00 03/31/17 06:00 03/31/17 06:00 03/31/17 08:00 - Neurological Exam Sensorimotor examination: Present: intact Motor Examination: Present: grossly full strength in all extremities Motor examination - right side: 5/5: biceps, triceps, bridge inspector, hip flexors, plantarflexion Motor examination - left side: 5/5: biceps, triceps, hip flexors, bridge inspector, quadriceps, plantarflexion Sensation intact: Present: intact Mental Status Examination: Present: awake, alert, oriented to person, oriented to place, oriented to time, follows commands appropriately, answers questions appropriately, no agnosia, no aphasia, no aproxia, lucid Cranial nerve examination: Present: PERRL, EOMI (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) , visual serrano intact, corneal reflexes brisk symmetrically, sensory to face intact, mastication intact, no facial asymmetry is present, soft palate elevates bilaterally upon phonation, gag reflex intact, tongue protrudes midline , no atrophy or facial fasiculations present - VTE Documentation of Mechanical Device: Intermittent pneumatic compression device Results - Laboratory Findings CBC and BMP: 03/31/17 04:50 03/31/17 04:50 Abnormal lab findings: Abnormal lab results RBC 3.17 M/mcL (4.19-5.50) L 03/31/17 04:50 Hgb 9.6 g/dL (12.9-16.9) L 03/31/17 04:50 Hct 29.2 % (37.5-50.1) L 03/31/17 04:50 POC Glucose 96 (58-89) H 03/23/17 07:54 Calcium 8.3 mg/dL (8.6-10.3) L 03/31/17 04:50 AST 41 Units/L (13-39) H 03/28/17 02:45 ALT 5 Units/L (7-52) L 03/28/17 02:45 Alkaline Phosphatase 186 Units/L (34-104) H 03/28/17 02:45 B-Natriuretic Peptide 122 pg/mL (Less than 100) H 03/23/17 00:11 Serum Total Protein 5.8 g/dL (6.4-8.9) L 03/28/17 02:45 Albumin 2.7 g/dL (3.5-5.7) L 03/28/17 02:45 Albumin/Globulin Ratio 0.9 (1.1-2.2) L 03/28/17 02:45 Urine Clarity Cloudy (Clear) A 03/24/17 12:25 Ur Specific [place] > 1.030 (1.010-1.025) H 03/24/17 12:25 Urine Blood Large (Negative) H 03/24/17 12:25 Ur Leukocyte Esterase Small (Negative) H 03/24/17 12:25 Urine Microscopic RBC TNTC per hpf (0-3) H 03/24/17 12:25 Urine Microscopic WBC 15-30 per hpf (0-3) H 03/24/17 12:25 Ur Squamous Epith Cells Many per lpf (None-Few) H 03/24/17 12:25 Consult Discharge Plan - Plan Instructions: Levothyroxine (By mouth), Transient Ischemic Attack (DC), Transient Ischemic Attack (GEN), Atrial Fibrillation (DC), Hypothyroidism (DC), Chronic Hypertension (DC), Pneumonia (DC) Additional Instructions: Please follow up with your PCP after discharge. Take all medications as prescribed. You may restart your plavix tomorrow if your urine does not have any blood in it. Wear your heart monitor as instructed. Referrals: Jero Hernández DO [Primary Care Provider] - Prescriptions: Levothyroxine [Synthroid] 75 mcg PO DAILY@0630 #30 tablet Metoprolol [Lopressor] 25 mg PO BID #60 tablet Pramipexole [Mirapex] 0.125 mg PO DAILY #30 tablet <Kavya Curtis I - Last Filed: 04/06/17 21:59> Date of Encounter: 03/31/17 Assessment and Plan (1) Acute encephalopathy Status: Acute pt seen and examined agree with Dr Huddleston documentation, and plan stable and improved from neurology stand point, continue on current dose of Sinemet for now may change later also explained to daughter and son at bedside that these pt are very sensitive to meds and change in environment high risk of delirium and hallucination, so have to be careful with meds dont want to make too many changes, f/u with Dr Mcclendon as out pt Kavya Curtis MD Objective - Constitutional Vitals: Temp Pulse Resp BP Pulse Ox 98.1 F 64 16 113/48 97 03/31/17 15:00 03/31/17 15:00 03/31/17 15:53 03/31/17 16:05 03/31/17 15:53 Results - Laboratory Findings CBC and BMP: 03/31/17 04:50 03/31/17 04:50 Abnormal lab findings: Abnormal lab results RBC 3.17 M/mcL (4.19-5.50) L 03/31/17 04:50 Hgb 9.6 g/dL (12.9-16.9) L 03/31/17 04:50 Hct 29.2 % (37.5-50.1) L 03/31/17 04:50 POC Glucose 96 (58-89) H 03/23/17 07:54 Calcium 8.3 mg/dL (8.6-10.3) L 03/31/17 04:50 AST 41 Units/L (13-39) H 03/28/17 02:45 ALT 5 Units/L (7-52) L 03/28/17 02:45 Alkaline Phosphatase 186 Units/L (34-104) H 03/28/17 02:45 B-Natriuretic Peptide 122 pg/mL (Less than 100) H 03/23/17 00:11 Serum Total Protein 5.8 g/dL (6.4-8.9) L 03/28/17 02:45 Albumin 2.7 g/dL (3.5-5.7) L 03/28/17 02:45 Albumin/Globulin Ratio 0.9 (1.1-2.2) L 03/28/17 02:45 Urine Clarity Cloudy (Clear) A 03/24/17 12:25 Ur Specific [place] > 1.030 (1.010-1.025) H 03/24/17 12:25 Urine Blood Large (Negative) H 03/24/17 12:25 Ur Leukocyte Esterase Small (Negative) H 03/24/17 12:25 Urine Microscopic RBC TNTC per hpf (0-3) H 03/24/17 12:25 Urine Microscopic WBC 15-30 per hpf (0-3) H 03/24/17 12:25 Ur Squamous Epith Cells Many per lpf (None-Few) H 03/24/17 12:25
[2017-03-31] MEDS ORDERED: 0.9 % Sodium Chloride 250 ML ONE (11:45)
[2017-03-31] MEDS ORDERED: 0.9 % Sodium Chloride 250 ML IVC ONE (11:53)
[2017-03-31] MEDS ORDERED: 0.9 % Sodium Chloride 500 ML IVC SCH (15:45)
--- NOTE | 2017-03-31 16:27 | Discharge Summary ---
<Venu Andrea - Last Filed: 03/31/17 17:16> Date of Encounter: 03/31/17 Time of Encounter: 16:23 - Discharge Diagnosis (1) Sinus bradycardia Priority: Primary Status: Acute (2) Atrial fibrillation Priority: Secondary Status: Acute Qualifiers: Atrial fibrillation type: paroxysmal Qualified Code(s): I48.0 - Paroxysmal atrial fibrillation (3) Syncope Priority: Secondary Status: Resolved Qualifiers: Syncope type: unspecified Qualified Code(s): R55 - Syncope and collapse (4) Hypothermia Priority: Secondary Status: Resolved Qualifiers: Encounter type: subsequent encounter Qualified Code(s): T68.XXXD - Hypothermia, subsequent encounter (5) Hypothyroidism Priority: Secondary Status: Acute Qualifiers: Hypothyroidism type: acquired Qualified Code(s): E03.9 - Hypothyroidism, unspecified (6) CAD (coronary artery disease) Priority: Secondary Status: Chronic Qualifiers: Coronary Disease-Associated Artery/Lesion type: [place] artery [place] vs. transplanted heart: [place] heart Associated angina: without angina Qualified Code(s): I25.10 - Atherosclerotic heart disease of [place] coronary artery without angina pectoris (7) PNA (pneumonia) Priority: Secondary Status: Resolved Qualifiers: Pneumonia type: aspiration pneumonia Aspiration pneumonia type: unspecified Laterality: unspecified laterality Lung location: unspecified part of lung Qualified Code(s): J69.0 - Pneumonitis due to inhalation of food and vomit (8) Parkinson disease Priority: Secondary Status: Chronic (9) Hx of transient ischemic attack (TIA) Priority: Secondary Status: Acute (10) DVT prophylaxis Priority: Secondary Status: Acute - Discharge Medications Prescriptions: Levothyroxine [Synthroid] 75 mcg PO DAILY@629 #30 tablet Metoprolol [Lopressor] 25 mg PO BID #60 tablet Pramipexole [Mirapex] 0.125 mg PO DAILY #30 tablet Home Medications: Aspirin [Lo-Dose Aspirin EC] 81 mg PO DAILY 02/15/17 [History] Carbidopa/Levodopa ER 50/200 [Sinemet ER 50-200 Tab] 1 each PO BID 02/15/17 [ History] Tamsulosin [Flomax] 0.4 mg PO HS 02/15/17 [History] Clopidogrel [Plavix] 75 mg PO DAILY #90 tablet 02/17/17 [Rx] Levothyroxine [Synthroid] 75 mcg PO DAILY@0630 #30 tablet 03/27/17 [Rx] Atorvastatin [Lipitor] 20 mg PO HS tablet 03/31/17 [Rx] Clopidogrel [Plavix] 75 mg PO DAILY tablet 03/31/17 [Rx] Metoprolol [Lopressor] 25 mg PO BID #60 tablet 03/31/17 [Rx] Pramipexole [Mirapex] 0.125 mg PO DAILY #30 tablet 03/31/17 [Rx] Allergies/Adverse Reactions: 3 Allergy/AdvReac Type Severity Reaction Status Date / Time No Known Allergies Allergy Verified 02/15/17 12:10 Procedures/tests Complete & Pending: Procedures Performed prior 72 hours Category Date Time Status CL Insert Permanent Pacemaker [CL] Routine Pharmacy Technician Inpatient 03/29/17 12:26 Completed ECG 12 lead ECG [ECG] Routine Y 03/28/17 17:08 Completed ECG 12 lead ECG [ECG] Routine Y 03/29/17 10:30 Completed EKG [ECG 12 lead ECG] [ECG] Stat Y 03/28/17 19:40 Completed Date of admission: 03/22/17 22:58 Primary care physician: Jero Hernández DO Consults: 03/22/17 23:18 Consult to Cardiology [CONS] Routine Comment: Consulting Provider: [facility] Reason for Consult: symptomatic bradycardia Call Completed: No 03/23/17 02:40 Consult to Speech Therapy [CONS] Routine Comment: Evaluate, develop and implement POC Reason for Consult: Swallow evaluation, pt has Parkinson disease Call Completed: No 03/24/17 09:26 Consult to Neurology [CONS] Routine Consulting Provider: [facility] Reason for Consult: AMS, facial droop Call Completed: Yes 03/24/17 09:31 Consult to Urology [CONS] Routine Consulting Provider: [facility] Reason for Consult: persistent hemauria Call Completed: Yes 03/24/17 14:18 Consult to Physician [CONS] Routine Consulting Provider: Melvin Hughes Reason for Consult: Vision changes Call Completed: Yes 03/25/17 11:26 Consult to Physical Therapy [CONS] Routine Comment: Evaluate, develop and implement POC Reason for Consult: need for evaluation 03/25/17 11:28 OT [Consult to Occupational Therapy] [CONS] Routine Comment: Evaluate, develop and implement POC Reason for Consult: Need for evaluation 03/27/17 11:02 Consult to [facility] [CONS] Routine Reason for SW Consult: possible placement to ECF 03/31/17 10:25 Consult to Neurology [CONS] Routine Consulting Provider: [facility] Reason for Consult: Slowed movements, confusion, history of parkinsons Call Completed: Yes Discharging clinician: Venu Andrea Anticipated date of discharge: 03/31/17 - Patient Status Disposition: Transfer SNF Condition: Fair Functional capacity at discharge: independent ambulation Overall status at discharge: patient is progressing back to baseline - Discharge Instructions Instructions: Levothyroxine (By mouth), Transient Ischemic Attack (DC), Transient Ischemic Attack (GEN), Atrial Fibrillation (DC), Hypothyroidism (DC), Chronic Hypertension (DC), Pneumonia (DC) Follow Up With: Jero Hernández DO [Primary Care Provider] - Additional Instructions: Please follow up with your PCP after discharge. Take all medications as prescribed. You may restart your plavix tomorrow if your urine does not have any blood in it. Wear your heart monitor as instructed. - Diet and Activity Activity: as per physical therapy, increase activity as tolerated, resume usual activities as tolerated Diet: advance to your usual diet Hospital course: Mr. Berkowitz is a 87 year old male with a PMHx of Parkinson disease, TIA, CAD s/p stent, skin cancer was sent from [facility] ED for syncope. On arrival to [facility], he was noted to be bradycardic at 37, hypotensive with SBP in 70s. EKG showed AFib with slow ventricular response. He responded to Atropine and responded with HR in 60s and NSR. He was also noted to be hypothermic with rectal temp of 93.7. Echo showed EF of 60-65% with normal wall motion. Cardiology was consulted in ED and he was admitted to hospital for syncope, bradycardia, hypothermia. CT head on presentation as well as repeat were both negative for acute process. During course of hospital stay, he gradually improved. He was warmed with bear hugger blanket and give atropine PRN. His signs and symptoms were thought to be secondary to shock from aspiration pneumonia vs new hypothyroidism. He was treated with synthroid and unasyn. He was also evaluated by neurology who do not believe he had a CVA, but cannot rule out TIA. Urology was consulted for hematuria who stopped plavix and state that he may resume plavix once bleeding has stopped for a couple days. Patient was notably scheduled for discharge however that evening he did go into second-degree type II AV block and discharge order was canceled. He was reevaluated by cardiology who determined that he would benefit from a pacemaker. He did undergo that procedure and tolerated it well. On day of discharge, patient was reevaluated by neurology due to son's concerns of confusion and slow movements. They recommend continuing the Mirapex once daily. Do not believe he is having a new episode of ischemia, more likely related to sedation medication from procedure. He was also noted to be moderately hypotensive on day of discharge, likely secondary to hypertension medications. Her family was presence they state that he does not take his medications at home. He was given a saline bolus and his blood pressure responded appropriately. At time of discharge, blood pressure is stable and he will be sent home without blood pressure medications. He was instructed to follow-up at [facility] and with his primary care physician for further management of medications and chronic medical problems. On day of discharge, patient is AOx3 and states that he is keen to go to rehab with a goal of returning home. He has no symptoms. Vitals are stable. Labs stable. All questions were answered. He will be discharged to SNF/ECF. All questions answered. - Time Spent with Patient Total time spent providing and/or coordinating discharge services: - Constitutional Vitals: Temp Pulse Resp BP Pulse Ox 98.1 F 64 16 113/48 97 03/31/17 15:00 03/31/17 15:00 03/31/17 15:53 03/31/17 15:00 03/31/17 15:53 General appearance: Present: A&O X 3, no acute distress, answers questions appropriately - VTE Documentation of Mechanical Device: Intermittent pneumatic compression device <Jono Blood - Last Filed: 03/31/17 19:06> Date of Encounter: 03/31/17 - Discharge Diagnosis (1) Sick sinus syndrome Priority: Primary Status: Suspected (2) Syncope Status: Resolved Qualifiers: Syncope type: unspecified Qualified Code(s): R55 - Syncope and collapse (3) Parkinson disease Status: Chronic (4) CAD (coronary artery disease) Status: Chronic Qualifiers: Coronary Disease-Associated Artery/Lesion type: [place] artery [place] vs. transplanted heart: [place] heart Associated angina: without angina Qualified Code(s): I25.10 - Atherosclerotic heart disease of [place] coronary artery without angina pectoris (5) HLD (hyperlipidemia) Priority: Secondary Status: Chronic Qualifiers: Hyperlipidemia type: mixed hyperlipidemia Qualified Code(s): E78.2 - Mixed hyperlipidemia (6) PNA (pneumonia) Status: Resolved Qualifiers: Pneumonia type: aspiration pneumonia Aspiration pneumonia type: unspecified Laterality: unspecified laterality Lung location: unspecified part of lung Qualified Code(s): J69.0 - Pneumonitis due to inhalation of food and vomit (7) Hypothyroidism Status: Acute Qualifiers: Hypothyroidism type: acquired Qualified Code(s): E03.9 - Hypothyroidism, unspecified (8) Atrial fibrillation Status: Acute Qualifiers: Atrial fibrillation type: paroxysmal Qualified Code(s): I48.0 - Paroxysmal atrial fibrillation Procedures/tests Complete & Pending: Procedures Performed prior 72 hours Category Date Time Status CL Insert Permanent Pacemaker [CL] Routine Pharmacy Technician Inpatient 03/29/17 12:26 Completed ECG 12 lead ECG [ECG] Routine Y 03/29/17 10:30 Completed EKG [ECG 12 lead ECG] [ECG] Stat Y 03/28/17 19:40 Completed Date of admission: 03/22/17 22:58 Primary care physician: Jero Hernández DO Consults: 03/22/17 23:18 Consult to Cardiology [CONS] Routine Comment: Consulting Provider: [facility] Reason for Consult: symptomatic bradycardia Call Completed: No 03/23/17 02:40 Consult to Speech Therapy [CONS] Routine Comment: Evaluate, develop and implement POC Reason for Consult: Swallow evaluation, pt has Parkinson disease Call Completed: No 03/24/17 09:26 Consult to Neurology [CONS] Routine Consulting Provider: [facility] Reason for Consult: AMS, facial droop Call Completed: Yes 03/24/17 09:31 Consult to Urology [CONS] Routine Consulting Provider: [facility] Reason for Consult: persistent hemauria Call Completed: Yes 03/24/17 14:18 Consult to Physician [CONS] Routine Consulting Provider: Melvin Hughes Reason for Consult: Vision changes Call Completed: Yes 03/25/17 11:26 Consult to Physical Therapy [CONS] Routine Comment: Evaluate, develop and implement POC Reason for Consult: need for evaluation 03/25/17 11:28 OT [Consult to Occupational Therapy] [CONS] Routine Comment: Evaluate, develop and implement POC Reason for Consult: Need for evaluation 03/27/17 11:02 Consult to Paraffiner [CONS] Routine Reason for SW Consult: possible placement to ECF 03/31/17 10:25 Consult to Neurology [CONS] Routine Consulting Provider: [facility] Reason for Consult: Slowed movements, confusion, history of parkinsons Call Completed: Yes Hospital course: Mr. Berkowitz is a 87 year old male - Time Spent with Patient Total time spent providing and/or coordinating discharge services: 38min - Constitutional Vitals: Temp Pulse Resp BP Pulse Ox 98.1 F 64 16 113/48 97 03/31/17 15:00 03/31/17 15:00 03/31/17 15:53 03/31/17 16:05 03/31/17 15:53 - Attending Attestation I examined this patient and my medical decision-making was reviewed with the Resident Physician on 03/31/17. I agree with the documented findings, disposition and treatment plan as described except to the extent set forth below. Mr Berkowitz has been admitted for syncope and has received a pacemaker. He had some issues with BP today but is doing better. He is afebrile and is ready for discharge to SNF Exam alert Comfortable Mucus membranes dry Heart irreg Lungs with rhonchi Plan D/C to SNF
[2017-03-31 16:29] VITALS: BP 113/48
--- NOTE | 2017-03-31 17:16 | Physician Discharge Referral ---
Extended[facility] Referral Info Provider in Charge after Transfer: PCP Institutional Level of Care: Skilled - Diagnosis (1) Sinus bradycardia Priority: Primary Status: Acute (2) Atrial fibrillation Priority: Secondary Status: Acute (3) Syncope Priority: Secondary Status: Resolved (4) Hypothermia Priority: Secondary Status: Resolved (5) Hypothyroidism Priority: Secondary Status: Acute (6) CAD (coronary artery disease) Priority: Secondary Status: Chronic (7) PNA (pneumonia) Priority: Secondary Status: Resolved (8) Parkinson disease Priority: Secondary Status: Chronic (9) Hx of transient ischemic attack (TIA) Priority: Secondary Status: Acute (10) DVT prophylaxis Priority: Secondary Status: Acute Prognosis: Fair Aware of Diagnosis: Patient, Family Aware of Prognosis: Patient, Family - Transfer Medications Prescriptions: Levothyroxine [Synthroid] 75 mcg PO DAILY@0630 #30 tablet Metoprolol [Lopressor] 25 mg PO BID #60 tablet Pramipexole [Mirapex] 0.125 mg PO DAILY #30 tablet Home Medications: Aspirin [Lo-Dose Aspirin EC] 81 mg PO DAILY 02/15/17 [History] Carbidopa/Levodopa ER 50/200 [Sinemet ER 50-200 Tab] 1 each PO BID 02/15/17 [ History] Tamsulosin [Flomax] 0.4 mg PO HS 02/15/17 [History] Clopidogrel [Plavix] 75 mg PO DAILY #90 tablet 02/17/17 [Rx] Levothyroxine [Synthroid] 75 mcg PO DAILY@0630 #30 tablet 03/27/17 [Rx] Atorvastatin [Lipitor] 20 mg PO HS tablet 03/31/17 [Rx] Clopidogrel [Plavix] 75 mg PO DAILY tablet 03/31/17 [Rx] Metoprolol [Lopressor] 25 mg PO BID #60 tablet 03/31/17 [Rx] Pramipexole [Mirapex] 0.125 mg PO DAILY #30 tablet 03/31/17 [Rx] Allergies/Adverse Reactions: 3 Allergy/AdvReac Type Severity Reaction Status Date / Time No Known Allergies Allergy Verified 02/15/17 12:10 - Respiratory Orders Smoking Cessation: Smoking cessation has been advised. For more information, call the [place] Tobacco Quit Line at 4-790-RKNZ-NOW. - Advance Directives Code Status: Full Code - Mobility Orders Ambulate CERTIFICATION: I certify that the transfer of the above named patient to an Extended Care Facility is necessary for the continuing treatment of the diagnosis listed. The above information is true and accurate reflection of patient's current condition. Confidential - Redisclosure prohibited without a patient's written consent.
== END 2017-03-31 18:30 | DRG 242 ==
LOC: 2NENU → SUATTDRO 22:58
PROVIDERS: ADMIT Internal Medicine; ATTEND Internal Medicine

== ENCOUNTER 2017-06-23 16:15 | Inpatient (IN) ==
[2017-06-23] MEDS ORDERED: Naloxone 0.4 MG/ML INJ IVP PRN (20:09)
[2017-06-23] MEDS ORDERED: Acetaminophen 325 MG TABLET PO PRN (20:11)
--- NOTE | 2017-06-23 20:16 | Internal Med History&Physical ---
Date of Encounter: 06/23/17 Time of Encounter: 19:45 Internal Medicine - H&P: HPI Chief complaint: Fatigue, low Hb Admitted From: Emergency Dept Plans for Post Hospital Care: Home History of present illness: Mr. Berkowitz is a 87 year old male with history of Parkinson disease, atrial fibrillation on anticoagulation, he was sent from [facility] emergency room for evaluation of anemia. History is obtained with the help of his at bedside. Patient has been complaining of generalized weakness and fatigue for the last few days, associated with melena for the last 4 weeks. No nausea, vomiting, abdominal pain, bright red bleeding per rectum. No chest pain, shortness of breath, palpitations. He does have chronic leg swelling and orthostatic hypotension related to his Parkinson disease. He ambulates very slowly with the help of a walker at baseline. He presented to his PCP office for his routine appointment, was told that his hemoglobin dropped to 6 on routine labs and was recommended to present to the emergency room. Hemoglobin was noted to be 7.3 in the emergency room along with positive stool occult blood test. Of note, patient is noted to be on aspirin, Plavix and Xarelto. Past Med Surg Social Fam HX - Past Medical History Source: obtained from family Medical history: atrial fibrillation, coronary artery disease, GERD, hyperlipidemia, thyroid disease, TIA, other Psychiatric history: no psych history - Past Surgical History Surgical History: angioplasty/stent, pacemaker/AICD, vasectomy - Social History Smoking Status: Never smoker Smokeless Tobacco Status: No Alcohol use: none Drug use: none Occupational status: retired Current living situation: Home, With Family Activity Level: Uses cane/walker Recent Out of Country Travel Within the Last 8 Weeks: No Exposure or Possible Exposure to Illness During Travel: No - Additional Family History Additional family history: reviewed and found non-contributory Internal Medicine - H&P: Meds Aspirin [Lo-Dose Aspirin EC] 81 mg PO DAILY 02/15/17 [History] Carbidopa/Levodopa ER 50/200 [Sinemet ER 50-200 Tab] 1 each PO BID 02/15/17 [ History] Levothyroxine [Synthroid] 75 mcg PO DAILY@0630 #30 tablet 03/27/17 [Rx] Clopidogrel [Plavix] 75 mg PO DAILY tablet 03/31/17 [Rx] Fludrocortisone Acetate [Florinef] 0.1 mg PO DAILY tablet 05/03/17 [Rx] Acetaminophen [Non-Aspirin] 650 mg PO PRN PRN 05/28/17 [History] Ferrous Sulfate 325 mg PO HS 05/28/17 [History] Rivaroxaban [Xarelto] 15 mg PO HS 05/28/17 [History] Ascorbic Acid [Vitamin C] 500 mg PO DAILY 06/23/17 [History] Finasteride [Proscar] 5 mg PO DAILY 06/23/17 [History] Simvastatin [Zocor] 40 mg PO HS 06/23/17 [History] 3 Allergy/AdvReac Type Severity Reaction Status Date / Time No Known Allergies Allergy Verified 06/23/17 14:28 All Systems PM: A 10-system review of systems was performed and is negative for pertinent findings except as documented above in the HPI. - Constitutional Constitutional: fatigue, weakness, no chills, no fever(s), no night sweats - EENT Eyes: no change in vision, no discharge, no pain, no photophobia Ears: no ear discharge, no ear pain, no tinnitus Nose, mouth and throat: no dysphagia, no nasal discharge, no neck pain, no sore throat - Cardiovascular Cardiovascular ROS IM: no chest pain, no diaphoresis, no dyspnea, no lightheadedness, no palpitations, no syncope - Respiratory Respiratory: no cough, no dyspnea, no wheezing, no excessive phlegm production - Gastrointestinal Gastrointestinal: melena, no abdominal pain, no diarrhea, no hematemesis, no hematochezia, no nausea, no vomiting - Musculoskeletal Musculoskeletal ROS IM: no numbness, no tingling - Integumentary Integumentary IM: no rash, no unusual bruising - Neurological Neurological ROS: no confusion, no convulsions, no focal weakness, no numbness, no tingling, no tremor(s) - Hematologic/Lymphatic Hematologic/Lymphatic: no easy bruising - Constitutional Vitals: Temp Pulse Resp BP Pulse Ox 98.2 F 61 16 169/82 99 06/23/17 18:41 06/23/17 20:07 06/23/17 18:41 06/23/17 20:07 06/23/17 20:07 General appearance: Present: A&O X 3, answers questions appropriately - Respiratory Respiratory exam: Present: CTAB. Absent: accessory muscle use, rales, rhonchi, wheezes - Cardiovascular Cardiovascular exam: Present: RRR, +S1, +S2. Absent: diastolic murmur, gallop, rubs, systolic murmur - GI/Abdominal GI/Abdominal exam: Present: normal bowel sounds, soft (obese), no peritoneal signs. Absent: distended, tenderness - Extremities Exam Extremities exam: Present: pedal edema (2+ pitting pedal edema B/L), warm, radial pulses palpable and symmetrical. Absent: calf tenderness, cyanotic - Neurological Exam Neurological exam: Present: CN II-XII intact, oriented X3, no focal deficits. Absent: pronater drift, facial droop, speech deficit - Skin Skin exam: Present: dry, intact Internal Med - H&P Results - EKG Data -: EKG Interpreted by Myself EKG shows normal: sinus rhythm Rate: normal - Assessment and plan (1) Anemia Current Visit: Yes Status: Acute Assessment and plan: Acute on chronic anemia. Baseline hemoglobin around 9-10. Iron profile shows mild iron deficiency, patient is on ferrous sulfate supplements. Presented with hemoglobin of 6 and 7.3. Likely upper GI bleed. Hold aspirin, Plavix and anticoagulation with Xarelto at this time. Transfuse 2 units PRBC, monitor hemoglobin closely. GI has been consulted for possible EGD. Qualifiers: Anemia type: other cause Other causes of anemia: acute posthemorrhagic Qualified Code(s): D62 - Acute posthemorrhagic anemia (2) GI bleeding Current Visit: Yes Status: Acute Assessment and plan: resented with melena and acute anemia. Continue IV Protonix drip. No active bleeding noted at this time. Gastroenterology has been consulted, plan for possible EGD in a.m. Monitor hemoglobin closely and transfuse to keep hemoglobin above 8. Clear liquids for now, nothing by mouth past midnight. Monitor vital signs closely. Qualifiers: GI bleed type/associated pathology: melena Qualified Code(s): K92.1 - Melena (3) Atrial fibrillation Current Visit: Yes Status: Chronic Assessment and plan: Currently in sinus rhythm. Hold anticoagulation due to active GI bleed. Not noted to be on any rate controlling agents. Continue telemetry monitoring. Qualifiers: Atrial fibrillation type: paroxysmal Qualified Code(s): I48.0 - Paroxysmal atrial fibrillation (4) Hypothyroidism Current Visit: Yes Status: Chronic Assessment and plan: Resume levothyroxine. Qualifiers: Hypothyroidism type: unspecified Qualified Code(s): E03.9 - Hypothyroidism , unspecified (5) CAD (coronary artery disease) Current Visit: Yes Status: Chronic Assessment and plan: Hold aspirin and Plavix due to GI bleed. Continue statin. Qualifiers: Coronary Disease-Associated Artery/Lesion type: [place] artery [place] vs. transplanted heart: [place] heart Associated angina: without angina Qualified Code(s): I25.10 - Atherosclerotic heart disease of [place] coronary artery without angina pectoris (6) HLD (hyperlipidemia) Current Visit: Yes Status: Chronic Qualifiers: Hyperlipidemia type: unspecified Qualified Code(s): E78.5 - Hyperlipidemia , unspecified (7) Parkinson disease Current Visit: Yes Status: Chronic Assessment and plan: Continue home meds. Patient has history of orthostatic hypotension and dizziness associated with Parkinson disease and is noted to be on fludrocortisone at home. Currently his blood pressure noted to be elevated, will use when necessary IV hydralazine for appropriate blood pressure control. - Time Spent With Patient Total time spent is greater than 50% in coordination of care (as documented) at patient's floor/unit and/or counseling patient:
[2017-06-23] MEDS: Pantoprazole 40 MG in 0.9 % Sodium Chloride Mini Bag 100 ML IVC SCH (21:31)
[2017-06-23] MEDS: Carbidopa/Levodopa ER 50/200 TABLET PO SCH (21:54)
[2017-06-23] MEDS ORDERED: 0.9 % Sodium Chloride 250 ML ONE (21:59)
[2017-06-24] MEDS: Pantoprazole 40 MG in 0.9 % Sodium Chloride Mini Bag 100 ML IVC SCH ×2 (01:59→06:33)
[2017-06-24 03:45] LABS: Basophils % 0.3 %; Eosinophils # 0.5 K/mcL (0.0-0.6); Eosinophils % 7.1 %; Hemoglobin 7.9 g/dL (12.9-16.9); Immature Granulocytes % 0.5 % (0-4); Lymphocytes # 1.4 K/mcL (0.6-4.6); Lymphocytes % 22.7 %; Mean Corpuscular HGB Conc 30.4 g/dL (31.6-35.5); Mean Corpuscular Hemoglobin 28.8 pg (28.0-33.3); Mean Corpuscular Volume 94.9 fL (83.0-100.0); Mean Platelet Volume 9.6 fL (9.4-12.4); Monocytes # 0.6 K/mcL (0.0-1.3); Monocytes % 9.5 %; Neutrophils # 3.8 K/mcL (1.6-8.9); Platelet Count 211 K/mcL (140-400); Red Blood Count 2.74 M/mcL (4.19-5.50); Red Cell Distribution Width 20.4 % (11.5-14.5); Segmented Neutrophils % 59.9 %
[2017-06-24 03:54] LABS: INR 1.2; Prothrombin Time 12.9 Seconds (9.4-12.1)
[2017-06-24 03:56] LABS: Activated Partial Thrombo Time 31.1 Seconds (26.0-36.0)
[2017-06-24 04:13] LABS: BUN/Creatinine Ratio 20 (6-26); Blood Urea Nitrogen 16 mg/dL (8-23); Calcium 8.2 mg/dL (8.6-10.3); Carbon Dioxide 25 mEq/L (23-29); Chloride 109 mEq/L (98-107); Glucose 111 mg/dL (70-105); Magnesium 2.1 mg/dL (1.6-2.6); Osmolality,Calculated 292 (280-300); Potassium 3.6 mEq/L (3.5-5.1); Sodium 140 mEq/L (136-145); eGFR For African Americans > 60 (> 60); eGFR For Non-African Americans > 60 (> 60)
[2017-06-24] MEDS ORDERED: 0.9 % Sodium Chloride 250 ML ONE (06:10)
[2017-06-24] MEDS: Carbidopa/Levodopa ER 50/200 TABLET PO SCH ×2 (08:30→21:18)
[2017-06-24] MEDS: Finasteride 5 MG TABLET PO SCH (08:30)
[2017-06-24] MEDS ORDERED: *HR* Midazolam HCl 5 MG/5 ML VIAL IVP ONE ×2 (09:14→09:16)
[2017-06-24] MEDS ORDERED: *HR* FentaNYL (PF) 100 MCG/2 ML VIAL ONE (09:14)
[2017-06-24] MEDS ORDERED: Tetracaine/Benzocaine/Butamben 200MG/SPRAY (100SPY/BOT) MM ONE (09:16)
[2017-06-24] MEDS ORDERED: *HR* FentaNYL (PF) 100 MCG/2 ML VIAL IVP ONE (09:16)
[2017-06-24] MEDS ORDERED: Simethicone 40 MG/0.6 ML MLS IR ONE (09:16)
--- NOTE | 2017-06-24 09:16 | Pre-Sedation Evaluation ---
Pre-sedation evaluation - Pre-sedation checklist Date of procedure: 06/24/17 Procedure: PACER Recent Vitals: Last Vital Signs Temp 97.6 F 06/24/17 08:01 Pulse 60 06/24/17 08:01 Resp 16 06/24/17 08:01 BP 153/65 06/24/17 08:01 Pulse Ox 99 06/24/17 08:01 H&P (including ROS) documented in medical record: Yes Previous reaction to sedatives/anesthetics: No Dietary Status: NPO after Midnight Dentition: No loose teeth or bridges ASA Classification *see protocol: CLASS III-Severe systemic disease Plan of Care: Pt appropriate candidate for procedure/moderate/conscious sedation , Risks/benefits of procedure/sedation discussed w/ patient/family
--- NOTE | 2017-06-24 11:05 | Gastroenterology Consult Note ---
Date of Encounter: 06/24/17 Time of Encounter: 08:30 - Assessment and plan (1) Gross hematuria Current Visit: No Status: Acute (2) Melena Current Visit: Yes Status: Acute Assessment and plan: Hemoglobin was noted to be 7.3 in the emergency room along with positive stool occult blood test. Of note, patient is noted to be on aspirin, Plavix and Xarelto. Baseline hemoglobin is between the 9-10 range. Plan is for EGD today meanwhile continue PPI infusion. - Time Spent With Patient Total time spent is greater than 50% in coordination of care (as documented) at patient's floor/unit and/or counseling patient: GI History of Present Illness - Data of Consult Consult date: 06/24/17 Requesting Physician: Hunter Coker MD - Consult Narrative History of present illness: Mr. Berkowitz is a 87 year old male with multiple comorbidities who was admitted because of melena with severe anemia. Per patient used to be very active until [place] around that time he was diagnosed with orthostatic hypotension and since then his ambulation and general functional has declined, prior to that he would walk up to 2 mile a day . Patient has been complaining of generalized weakness and fatigue for the last few days, associated with melena for the last 4 weeks. No nausea, vomiting, abdominal pain orbright red bleeding per rectum. No chest pain, shortness of breath, palpitations. He does have chronic leg swelling and orthostatic hypotension related to his Parkinson disease. He ambulates very slowly with the help of a walker now. In [facility] he was found to have very severe anemia with a hemoglobin of 5.1. He has been given blood transfusion. Denies any abdominal pain no trouble swallowing. His last colonoscopy was ~ 5 years ago per when he was found to have a few small polyps. Past Med Surg Social Fam HX - Past Medical History Medical history: atrial fibrillation, coronary artery disease, GERD, hyperlipidemia, thyroid disease, TIA, other Psychiatric history: no psych history - Past Surgical History Surgical History: angioplasty/stent, pacemaker/AICD, vasectomy - Social History Smoking Status: Never smoker Smokeless Tobacco Status: No Alcohol use: none Drug use: none - Constitutional Vitals: Temp Pulse Resp BP Pulse Ox 97.3 F L 60 16 178/76 99 06/24/17 09:25 06/24/17 09:30 06/24/17 09:30 06/24/17 09:30 06/24/17 09:30 CONSTITUTIONAL:~alert, no acute distress.~HEAD:~Right side of the face/forehead he has extensive scarring of previous surgery for malignant melanoma.~EYES:~ 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 ~NEUROLOGIC: He is alert and awake and responce to questions appropriately although he is slow in response ~~~~ Results - Labs CBC & Chem 7: 06/24/17 03:31 06/24/17 03:31 Labs: Last Result Calcium 8.2 mg/dL (8.6-10.3) L 06/24/17 03:31 Entire Visit Hgb 7.9 g/dL (12.9-16.9) L 06/24/17 03:31 Hct 26.0 % (37.5-50.1) L 06/24/17 03:31 PT 12.9 Seconds (9.4-12.1) H 06/24/17 03:31 - ABG ABG results: PT/INR, D-dimer PT 12.9 Seconds (9.4-12.1) H 06/24/17 03:31 Consult Discharge Plan - Plan Referrals: Jero Hernández DO [Primary Care Provider] -
[2017-06-24] MEDS ORDERED: SODIUM CHLORIDE/NAHCO3/KCL/PEG 4,000 ML SOLN.RECON PO ONE (11:14)
--- NOTE | 2017-06-24 13:44 | Internal Med Progress Note ---
Date of Encounter: 06/24/17 Time of Encounter: 11:00 - Assessment and plan (1) GI bleeding Current Visit: Yes Status: Acute Assessment and plan: Patient presenting with symptoms of melena. Underwent upper GI endoscopy today. Plan for colonoscopy tomorrow. Hold Xarelto, aspirin and Plavix for now. We will await results of colonoscopy. Monitor blood counts closely. Continue IV PPI. High risk for complications. Qualifiers: GI bleed type/associated pathology: melena Qualified Code(s): K92.1 - Melena (2) Anemia Current Visit: Yes Status: Acute Assessment and plan: Hemoglobin 7.9 today. Status post 2 units blood transfusion. We will continue to monitor blood counts closely. Qualifiers: Anemia type: other cause Other causes of anemia: acute posthemorrhagic Qualified Code(s): D62 - Acute posthemorrhagic anemia (3) CAD (coronary artery disease) Current Visit: Yes Status: Chronic Assessment and plan: Reason currently not having any chest pain. Antiplatelet agents have been held due to acute GI bleed. Will await results of colonoscopy before restarting. Continue to monitor blood counts closely. Qualifiers: Coronary Disease-Associated Artery/Lesion type: [place] artery [place] vs. transplanted heart: [place] heart Associated angina: without angina Qualified Code(s): I25.10 - Atherosclerotic heart disease of [place] coronary artery without angina pectoris (4) HLD (hyperlipidemia) Current Visit: Yes Status: Chronic Assessment and plan: Continue Zocor Qualifiers: Hyperlipidemia type: unspecified Qualified Code(s): E78.5 - Hyperlipidemia , unspecified (5) Hypothyroidism Current Visit: Yes Status: Chronic Assessment and plan: Continue levothyroxine Qualifiers: Hypothyroidism type: unspecified Qualified Code(s): E03.9 - Hypothyroidism , unspecified (6) Parkinson disease Current Visit: Yes Status: Chronic Assessment and plan: Continue Sinemet (7) Atrial fibrillation Current Visit: Yes Status: Chronic Assessment and plan: Rate controlled. Anticoagulation held due to GI bleed. Qualifiers: Atrial fibrillation type: paroxysmal Qualified Code(s): I48.0 - Paroxysmal atrial fibrillation (8) Essential hypertension Current Visit: Yes Status: Chronic Assessment and plan: Uncontrolled this morning. Has been placed on IV hydralazine as needed. Will monitor blood pressure. Does not appear that the patient is on any medications for hypertension at home. Will start him on low-dose lisinopril if he is persistently hypertensive - Time Spent With Patient Total time spent is greater than 50% in coordination of care (as documented) at patient's floor/unit and/or counseling patient: - Subjective Interval history: Patient is awake and alert. Underwent upper GI endoscopy earlier this morning. Is scheduled for colonoscopy tomorrow. No acute findings on upper GI endoscopy. Patient is currently very somnolent. Likely related to sedation for procedure. - Constitutional Vitals: Temp Pulse Resp BP Pulse Ox 97.6 F 60 18 154/77 97 06/24/17 11:58 06/24/17 11:58 06/24/17 11:58 06/24/17 11:58 06/24/17 11:58 Exam: Patient is currently very somnolent. Awakes but falls asleep immediately. - Neck Neck exam general surgery: Present: supple, trachea midline. Absent: lymphadenopathy - Cardiovascular Cardiovascular exam: Present: RRR, +S1, +S2. Absent: diastolic murmur, gallop, rubs, systolic murmur - GI/Abdominal GI/Abdominal exam: Present: normal bowel sounds, soft, no peritoneal signs. Absent: distended, tenderness - Extremities Exam Extremities exam: Present: warm, radial pulses palpable and symmetrical. Absent : calf tenderness, cyanotic, pedal edema - Neurological Exam Neurological exam: Absent: facial droop Additional comments: Patient is currently somnolent. - Skin Skin exam: Present: dry, intact Internal Medicine: Result - Labs CBC & Chem 7: 06/24/17 03:31 06/24/17 03:31 Labs: Short CBC 06/24/17 Range/Units 03:31 WBC 6.3 (4.3-11.1) K/mcL Hgb 7.9 L (12.9-16.9) g/dL Hct 26.0 L (37.5-50.1) % Plt Count 211 (140-400) K/mcL Neutrophils # 3.8 (1.6-8.9) K/mcL BMP 06/24/17 03:31 Sodium 140 Potassium 3.6 Chloride 109 H Carbon Dioxide 25 BUN 16 Creatinine 0.80 Glucose 111 H Calcium 8.2 L - ABG Interpretation ABG results: PT/INR, D-dimer PT 12.9 Seconds (9.4-12.1) H 06/24/17 03:31 Consult Discharge Plan - Plan Referrals: Jero Hernández DO [Primary Care Provider] -
[2017-06-25 04:59] LABS: Basophils % 0.5 %; Eosinophils # 0.3 K/mcL (0.0-0.6); Eosinophils % 4.7 %; Hematocrit 28.2 % (37.5-50.1); Hemoglobin 8.7 g/dL (12.9-16.9); Immature Granulocytes % 0.2 % (0-4); Lymphocytes # 1.1 K/mcL (0.6-4.6); Lymphocytes % 18.5 %; Mean Corpuscular HGB Conc 30.9 g/dL (31.6-35.5); Mean Corpuscular Hemoglobin 29.4 pg (28.0-33.3); Mean Corpuscular Volume 95.3 fL (83.0-100.0); Mean Platelet Volume 9.8 fL (9.4-12.4); Monocytes # 0.6 K/mcL (0.0-1.3); Monocytes % 9.6 %; Neutrophils # 3.9 K/mcL (1.6-8.9); Platelet Count 204 K/mcL (140-400); Red Blood Count 2.96 M/mcL (4.19-5.50); Red Cell Distribution Width 19.5 % (11.5-14.5); Segmented Neutrophils % 66.5 %
[2017-06-25 05:16] LABS: BUN/Creatinine Ratio 20 (6-26); Blood Urea Nitrogen 15 mg/dL (8-23); Calcium 8.2 mg/dL (8.6-10.3); Carbon Dioxide 26 mEq/L (23-29); Chloride 110 mEq/L (98-107); Glucose 105 mg/dL (70-105); Osmolality,Calculated 295 (280-300); Potassium 3.5 mEq/L (3.5-5.1); Sodium 142 mEq/L (136-145); eGFR For African Americans > 60 (> 60); eGFR For Non-African Americans > 60 (> 60)
[2017-06-25] MEDS: Pantoprazole 40 MG VIAL IVP SCH (09:00)
[2017-06-25] MEDS: Finasteride 5 MG TABLET PO SCH (09:00)
[2017-06-25] MEDS: Carbidopa/Levodopa ER 50/200 TABLET PO SCH ×2 (09:00→20:03)
[2017-06-25] MEDS ORDERED: *HR* Propofol 200 MG/20 ML VIAL IVP ONE (09:45)
--- NOTE | 2017-06-25 10:38 | Anesthesia Evaluation PreOp ---
Date of Encounter: 06/25/17 Time of Encounter: 10:38 - Past History Planned Operation: Colonoscopy Cardiac History: HTN, Hyperlipidemia, Arrhythmia (Afib), Other (CAD) Pulmonary History: Denies Any Significant HX CHIMNEY BUILDER History: Other (Parkinson's) Other Medical History: Bleeding (GI bleed), Thyroid, Other (Anemia) Anesthesia History: No Prior Anesthetic Complications, Past Anesthesia Alcohol Use: none Drug use: none Medications and Allergies Aspirin [Lo-Dose Aspirin EC] 81 mg PO DAILY 02/15/17 [History] Carbidopa/Levodopa ER 50/200 [Sinemet ER 50-200 Tab] 1 tab PO BID 02/15/17 [ History] Clopidogrel [Plavix] 75 mg PO DAILY tablet 03/31/17 [Rx] Fludrocortisone Acetate [Florinef] 0.1 mg PO DAILY tablet 05/03/17 [Rx] Acetaminophen [Non-Aspirin] 650 mg PO Q6H PRN 05/28/17 [History] Ferrous Sulfate 325 mg PO HS 05/28/17 [History] Rivaroxaban [Xarelto] 15 mg PO HS 05/28/17 [History] Ascorbic Acid [Vitamin C] 500 mg PO DAILY 06/23/17 [History] Finasteride [Proscar] 5 mg PO DAILY 06/23/17 [History] Simvastatin [Zocor] 40 mg PO HS 06/23/17 [History] Levothyroxine Sodium [Levoxyl] 75 mcg PO DAILY 06/24/17 [History] Pramipexole [Mirapex] 0.25 mg PO HS 06/24/17 [History] Tamsulosin [Flomax] 0.4 mg PO DAILY 06/24/17 [History] 3 Allergy/AdvReac Type Severity Reaction Status Date / Time No Known Allergies Allergy Verified 06/23/17 14:28 Anesthesia Results - Labs 06/25/17 04:18 06/25/17 04:18 Anesthesia Exam Vital Signs/O2 Sat, Most Current Temp Pulse Resp BP Pulse Ox 97.6 F 59 16 186/72 96 06/25/17 06:54 06/25/17 10:29 06/25/17 10:29 06/25/17 10:29 06/25/17 10:29 Weight: 79 kg NPO (# of Hours): 8 - HEENT Mallampati: III Teeth: Normal Oral Opening: Greater than 3 - CHIMNEY BUILDER LOC: Confused - Cardiac Rhythm: Irregular - Pulmonary Breath Sounds: bilateral Clear Anesthesia Assess/Plan ASA Score: 4 Modified [place] Scale for Level of Consciousness: Cooperative, oriented, and tranquil Anesthetic Plan: MAC Monitoring Plan: Standard Monitors Recovery Plan: Other Anes Supervising Prov Stmt: Chart reviewed, patient examined, and risks, benefits discussed with patient's , who agrees and gives consent to proceed.
--- NOTE | 2017-06-25 11:34 | Anesthesia Evaluation Post Op ---
Date of Encounter: 06/25/17 Time of Encounter: 11:56 Notes: Patient's vital signs have been reviewed. Patient is stable postoperatively and has adequately recovered from anesthesia. Patient is determined to have stable airway patency and respiratory function including respiratory rate and oxygen saturation. Patient has a stable heart rate, blood pressure and adequate hydration. Patients mental status is acceptable. Patients temperature is appropriate. Pain and nausea are adequately controlled. - Discharge PostOp Status: Transfer Patient to floor
--- NOTE | 2017-06-25 13:08 | Internal Med Progress Note ---
Date of Encounter: 06/25/17 Time of Encounter: 13:07 - Assessment and plan (1) GI bleeding Current Visit: Yes Status: Acute Assessment and plan: hemoglobin 8.7 today. Colonoscopy planned for today. We will follow results. Continue PPI. Continue to monitor blood counts. Holding anticoagulation Qualifiers: GI bleed type/associated pathology: melena Qualified Code(s): K92.1 - Melena (2) Anemia Current Visit: Yes Status: Acute Assessment and plan: Due to GI bleed. Hemoglobin 8.7 today. Appears to be stabilizing. Colonoscopy planned for later today. We will continue to monitor blood count Qualifiers: Anemia type: other cause Other causes of anemia: acute posthemorrhagic Qualified Code(s): D62 - Acute posthemorrhagic anemia (3) CAD (coronary artery disease) Current Visit: Yes Status: Chronic Assessment and plan: Aspirin, Plavix held due to GI bleed. We will resume these medications if patient not having any acute GI bleeding and colonoscopy negative. Continue to hold anticoagulation for now. Qualifiers: Coronary Disease-Associated Artery/Lesion type: [place] artery [place] vs. transplanted heart: [place] heart Associated angina: without angina Qualified Code(s): I25.10 - Atherosclerotic heart disease of [place] coronary artery without angina pectoris (4) HLD (hyperlipidemia) Current Visit: Yes Status: Chronic Assessment and plan: Continue statin Qualifiers: Hyperlipidemia type: unspecified Qualified Code(s): E78.5 - Hyperlipidemia , unspecified (5) Hypothyroidism Current Visit: Yes Status: Chronic Assessment and plan: Continue Levothyroxine Qualifiers: Hypothyroidism type: unspecified Qualified Code(s): E03.9 - Hypothyroidism , unspecified (6) Parkinson disease Current Visit: Yes Status: Chronic Assessment and plan: On Sinemet (7) Atrial fibrillation Current Visit: Yes Status: Chronic Assessment and plan: Rate controlled. Anticoagulation held due to GI bleed. Qualifiers: Atrial fibrillation type: paroxysmal Qualified Code(s): I48.0 - Paroxysmal atrial fibrillation (8) Essential hypertension Current Visit: Yes Status: Chronic Assessment and plan: blood pressure remains elevated. Continue hydralazine. Will place patient on amlodipine. - Time Spent With Patient Total time spent is greater than 50% in coordination of care (as documented) at patient's floor/unit and/or counseling patient: - Subjective Interval history: Patient awake and alert. He is scheduled for upper and patient is awake and alert. He is scheduled for colonoscopy today. Has not had any episodes of hematemesis or melena. No dizziness or lightheadedness. No chest pain or shortness of breath. - Constitutional Vitals: Temp Pulse Resp BP Pulse Ox 97.0 F L 65 16 160/71 100 06/25/17 12:05 06/25/17 12:05 06/25/17 12:05 06/25/17 12:05 06/25/17 12:05 General appearance: Present: cooperative, A&O X 3, pleasant, answers questions appropriately - Eye Eye exam: Present: EOMI, conjuntiva pink - Neck Neck exam general surgery: Present: supple, trachea midline. Absent: lymphadenopathy - Respiratory Respiratory exam: Present: CTAB. Absent: accessory muscle use, rales, rhonchi, wheezes - Cardiovascular Cardiovascular exam: Present: RRR, +S1, +S2. Absent: diastolic murmur, gallop, rubs, systolic murmur - GI/Abdominal GI/Abdominal exam: Present: normal bowel sounds, soft, no peritoneal signs. Absent: distended, tenderness - Extremities Exam Extremities exam: Present: warm, radial pulses palpable and symmetrical. Absent : calf tenderness, cyanotic, pedal edema - Neurological Exam Neurological exam: Present: alert, oriented X3, no focal deficits. Absent: facial droop, speech deficit - Skin Skin exam: Present: dry, intact Internal Medicine: Result - Labs CBC & Chem 7: 06/25/17 04:18 06/25/17 04:18 Labs: Short CBC 06/25/17 Range/Units 04:18 WBC 5.9 (4.3-11.1) K/mcL Hgb 8.7 L (12.9-16.9) g/dL Hct 28.2 L (37.5-50.1) % Plt Count 204 (140-400) K/mcL Neutrophils # 3.9 (1.6-8.9) K/mcL BMP 06/25/17 04:18 Sodium 142 Potassium 3.5 Chloride 110 H Carbon Dioxide 26 BUN 15 Creatinine 0.74 Glucose 105 Calcium 8.2 L - ABG Interpretation ABG results: PT/INR, D-dimer PT 12.9 Seconds (9.4-12.1) H 06/24/17 03:31 Consult Discharge Plan - Plan Referrals: Jero Hernández DO [Primary Care Provider] -
[2017-06-25] MEDS: amLODIPine 5 MG TABLET PO SCH (16:12)
[2017-06-26 06:42] LABS: Basophils % 0.3 %; Eosinophils # 0.3 K/mcL (0.0-0.6); Eosinophils % 5.3 %; Hematocrit 29.7 % (37.5-50.1); Hemoglobin 9.2 g/dL (12.9-16.9); Immature Granulocytes % 0.5 % (0-4); Lymphocytes # 1.4 K/mcL (0.6-4.6); Lymphocytes % 22.2 %; Mean Corpuscular Hemoglobin 29.1 pg (28.0-33.3); Mean Platelet Volume 9.7 fL (9.4-12.4); Monocytes # 0.6 K/mcL (0.0-1.3); Monocytes % 9.9 %; Neutrophils # 3.9 K/mcL (1.6-8.9); Platelet Count 198 K/mcL (140-400); Red Blood Count 3.16 M/mcL (4.19-5.50); Red Cell Distribution Width 18.1 % (11.5-14.5); Segmented Neutrophils % 61.8 %
[2017-06-26 07:05] LABS: BUN/Creatinine Ratio 22 (6-26); Blood Urea Nitrogen 17 mg/dL (8-23); Carbon Dioxide 27 mEq/L (23-29); Chloride 110 mEq/L (98-107); Glucose 112 mg/dL (70-105); Osmolality,Calculated 292 (280-300); Potassium 3.4 mEq/L (3.5-5.1); Sodium 140 mEq/L (136-145); eGFR For African Americans > 60 (> 60); eGFR For Non-African Americans > 60 (> 60)
[2017-06-26 07:18] VITALS: BP 169/81
[2017-06-26] MEDS: Pantoprazole 40 MG VIAL IVP SCH (09:31)
[2017-06-26] MEDS: Carbidopa/Levodopa ER 50/200 TABLET PO SCH (09:32)
[2017-06-26] MEDS: Finasteride 5 MG TABLET PO SCH (09:32)
[2017-06-26] MEDS: amLODIPine 5 MG TABLET PO SCH (09:32)
--- NOTE | 2017-06-26 11:41 | Discharge Summary ---
- NOTES TO OUTPATIENT PROVIDER Notes to Outpatient Provider: Patient admitted with acute GI bleed. Underwent upper GI endoscopy and colonoscopy. Found to have bleeding angiectasia ACS in his colon Which have been treated with APC. Likely source of bleeding. Recommended no Xarelto for 5 days by GI. Clinically stable to be discharged at this time. Orders not resulted at time of discharge: Pending orders 06/24/17 09:32 Surgical Pathology [PTH] Routine Date of Encounter: 06/26/17 Time of Encounter: 11:34 - Discharge Diagnosis (1) GI bleeding Priority: Primary Status: Acute Qualifiers: GI bleed type/associated pathology: melena Qualified Code(s): K92.1 - Melena (2) Anemia Priority: Secondary Status: Acute Qualifiers: Anemia type: other cause Other causes of anemia: acute posthemorrhagic Qualified Code(s): D62 - Acute posthemorrhagic anemia (3) CAD (coronary artery disease) Priority: Secondary Status: Chronic Qualifiers: Coronary Disease-Associated Artery/Lesion type: [place] artery [place] vs. transplanted heart: [place] heart Associated angina: without angina Qualified Code(s): I25.10 - Atherosclerotic heart disease of [place] coronary artery without angina pectoris (4) HLD (hyperlipidemia) Priority: Secondary Status: Chronic Qualifiers: Hyperlipidemia type: unspecified Qualified Code(s): E78.5 - Hyperlipidemia , unspecified (5) Hypothyroidism Priority: Secondary Status: Chronic Qualifiers: Hypothyroidism type: unspecified Qualified Code(s): E03.9 - Hypothyroidism , unspecified (6) Parkinson disease Priority: Secondary Status: Chronic (7) Atrial fibrillation Priority: Secondary Status: Chronic Qualifiers: Atrial fibrillation type: paroxysmal Qualified Code(s): I48.0 - Paroxysmal atrial fibrillation (8) Essential hypertension Priority: Secondary Status: Chronic Hospital course: Mr. Berkowitz is a 87 year old male patient with a history of Parkinson's disease, atrial fibrillation on anticoagulation, coronary artery disease, hyperlipidemia and thyroid disease was hospitalized here with low hemoglobin levels after being sent by his primary care provider. He was found to have a hemoglobin of 6 on routine labs. In the ER here he was found to have a hemoglobin of 7.3 and his stool was positive for occult blood. Patient is on aspirin and Plavix on Xarelto. As such she was given blood transfusion and gastroenterology was consulted. Patient first underwent upper GI endoscopy did not show any signs of acute bleeding. He then underwent colonoscopy which showed bleeding angioectasias his colon and a polyp. The bleeding angioectasias were treated with argon plasma coagulation. His blood counts have since improved. His been advised to stay off Plavix and Xarelto for total of 5 days. He will follow up with his PCP for further management. He is stable to be discharged today and will continue with home health at home. Discharge discussed with: patient, nurse, mortgage consultant - Time Spent with Patient Total time spent providing and/or coordinating discharge services: Greater than 30 minutes (35 min) - Discharge Medications Prescriptions: amLODIPine [Norvasc] 10 mg PO DAILY #60 tablet Pantoprazole Sodium 40 mg PO DAILY #30 tablet. Home Medications: Aspirin [Lo-Dose Aspirin EC] 81 mg PO DAILY 02/15/17 [History] Carbidopa/Levodopa ER 50/200 [Sinemet ER 50-200 Tab] 1 tab PO BID 02/15/17 [ History] Fludrocortisone Acetate [Florinef] 0.1 mg PO DAILY tablet 05/03/17 [Rx] Acetaminophen [Non-Aspirin] 650 mg PO Q6H PRN 05/28/17 [History] Ferrous Sulfate 325 mg PO HS 05/28/17 [History] Ascorbic Acid [Vitamin C] 500 mg PO DAILY 06/23/17 [History] Finasteride [Proscar] 5 mg PO DAILY 06/23/17 [History] Simvastatin [Zocor] 40 mg PO HS 06/23/17 [History] Levothyroxine Sodium [Levoxyl] 75 mcg PO DAILY 06/24/17 [History] Pramipexole [Mirapex] 0.25 mg PO HS 06/24/17 [History] Tamsulosin [Flomax] 0.4 mg PO DAILY 06/24/17 [History] Clopidogrel [Plavix] 75 mg PO DAILY #0 tablet 06/26/17 [Rx] Pantoprazole Sodium 40 mg PO DAILY #30 tablet. 06/26/17 [Rx] Rivaroxaban [Xarelto] 15 mg PO HS #0 06/26/17 [Rx] amLODIPine [Norvasc] 10 mg PO DAILY #60 tablet 06/26/17 [Rx] Allergies/Adverse Reactions: 3 Allergy/AdvReac Type Severity Reaction Status Date / Time No Known Allergies Allergy Verified 06/23/17 14:28 Date of admission: 06/23/17 20:09 Primary care physician: Jero Hernández DO Consults: 06/23/17 20:13 Consult to Gastroenterology [CONS] Routine Consulting Provider: Danniology Rakel Reason for Consult: Melena, anemia, on anticoagulation Call Completed: Yes Discharging clinician: Hunter Coker Anticipated date of discharge: 06/26/17 - Constitutional Vitals: Temp Pulse Resp BP Pulse Ox 97.5 F L 54 16 169/81 97 06/26/17 07:17 06/26/17 07:17 06/26/17 07:17 06/26/17 07:17 06/26/17 07:17 General appearance: Present: cooperative, A&O X 3, pleasant, answers questions appropriately - Respiratory Respiratory exam: Present: CTAB. Absent: accessory muscle use, rales, rhonchi, wheezes - Cardiovascular Cardiovascular exam: Present: RRR, +S1, +S2. Absent: diastolic murmur, gallop, rubs, systolic murmur - GI/Abdominal GI/Abdominal exam: Present: normal bowel sounds, soft, no peritoneal signs. Absent: distended, tenderness - Extremities Exam Extremities exam: Present: warm, radial pulses palpable and symmetrical. Absent : calf tenderness, cyanotic, pedal edema - Patient Status Disposition: Home, Self-Care Condition: Good Functional capacity at discharge: independent ambulation Overall status at discharge: patient is progressing back to baseline - Discharge Instructions Instructions: Amlodipine (By mouth), Pantoprazole (By mouth), Atrial Fibrillation (DC), Anemia (GEN) Follow Up With: Jero Hernández DO [Primary Care Provider] - 06/29/17 10:30 am (in 1-2 weeks) Chaz Olvera MD [Partnered Physician] - (in 3-4 weeks) Additional Instructions: Hold Xarelto and Plavix for 4 more days. - Diet and Activity Activity: increase activity as tolerated Diet: low fat, low cholesterol, low salt diet - VTE Documentation of Mechanical Device: Intermittent pneumatic compression device
--- NOTE | 2017-06-26 12:24 | Physician Discharge Referral ---
Home Health/Hosp Referral Info Transfer to: Home Health Provider in Charge Post Discharge: PCP - Diagnosis (1) GI bleeding Priority: Primary Status: Acute (2) Anemia Priority: Secondary Status: Acute (3) CAD (coronary artery disease) Priority: Secondary Status: Chronic (4) HLD (hyperlipidemia) Priority: Secondary Status: Chronic (5) Hypothyroidism Priority: Secondary Status: Chronic (6) Parkinson disease Priority: Secondary Status: Chronic (7) Atrial fibrillation Priority: Secondary Status: Chronic (8) Essential hypertension Priority: Secondary Status: Chronic - Respiratory Orders Smoking Cessation: Smoking cessation has been advised. For more information, call the [place] Tobacco Quit Line at 4-974-QNFC-NOW. - Diet/Nutrition Diet/Nutrition Orders: Cardiac - Activity Activity Orders: Walker (per PT) - Services Needed Following services are medically necessary services: Nursing, Home Health Aide, Physical Therapy, Occupational Therapy - Transfer Medications Prescriptions: amLODIPine [Norvasc] 10 mg PO DAILY #60 tablet Pantoprazole Sodium 40 mg PO DAILY #30 tablet. Home Medications: Aspirin [Lo-Dose Aspirin EC] 81 mg PO DAILY 02/15/17 [History] Carbidopa/Levodopa ER 50/200 [Sinemet ER 50-200 Tab] 1 tab PO BID 02/15/17 [ History] Fludrocortisone Acetate [Florinef] 0.1 mg PO DAILY tablet 05/03/17 [Rx] Acetaminophen [Non-Aspirin] 650 mg PO Q6H PRN 05/28/17 [History] Ferrous Sulfate 325 mg PO HS 05/28/17 [History] Ascorbic Acid [Vitamin C] 500 mg PO DAILY 06/23/17 [History] Finasteride [Proscar] 5 mg PO DAILY 06/23/17 [History] Simvastatin [Zocor] 40 mg PO HS 06/23/17 [History] Levothyroxine Sodium [Levoxyl] 75 mcg PO DAILY 06/24/17 [History] Pramipexole [Mirapex] 0.25 mg PO HS 06/24/17 [History] Tamsulosin [Flomax] 0.4 mg PO DAILY 06/24/17 [History] Clopidogrel [Plavix] 75 mg PO DAILY #0 tablet 06/26/17 [Rx] Pantoprazole Sodium 40 mg PO DAILY #30 tablet. 06/26/17 [Rx] Rivaroxaban [Xarelto] 15 mg PO HS #0 05/07/18 [Rx] amLODIPine [Norvasc] 10 mg PO DAILY #60 tablet 06/26/17 [Rx] Allergies/Adverse Reactions: 3 Allergy/AdvReac Type Severity Reaction Status Date / Time No Known Allergies Allergy Verified 06/23/17 14:28 Certification: Further, I certify that my clinical findings support that this patient is homebound (i.e. absences from home require considerable and taxing effort and are for medical reasons or [employer] or infrequently or short duration when for other reasons) because: Homebound Reason: Patient requires assistance of a person or device to safely leave home Attestation: My signature below is to certify that this patient is under my care and that I, or nurse practitioner, or a physician's life enrichment assistant working with me, has a face-to -face encounter with this patient.
== END 2017-06-26 14:18 | disposition home or self-care (01) | DRG 378 ==
LOC: 2NNU → SUATTDRO 20:09 → 2NENU 06-25 20:00
PROVIDERS: ADMIT Internal Medicine; ATTEND Internal Medicine
PROC: ENDOEBX (2017-06-24 09:00)
PROC: ENDOCCB (2017-06-25 11:00)

== ENCOUNTER 2017-07-22 14:10 | Observation (INO) ==
[2017-07-22] MEDS ORDERED: Naloxone 0.4 MG/ML INJ IVP PRN (17:27)
--- NOTE | 2017-07-22 17:38 | Internal Med History&Physical ---
<Michael Martinez R - Last Filed: 07/22/17 21:59> Date of Encounter: 07/22/17 Time of Encounter: 17:38 Internal Medicine - H&P: HPI Chief complaint: Melena Admitted From: Home Plans for Post Hospital Care: Home History of present illness: Mr. Berkowitz is a 87 year old male with history of A. fib, TIA, GERD, thyroid disease , pacer, CAD, hyperlipidemia, BPH and syncope. Patient presents from [facility] with melena, he indicated for the past 2 days it has been diarrheal. The patient denies nausea vomiting and any abdominal pain. However he did indicate he has had abdominal distention. The ED discovered the patient to have acute blood loss d/t anemia related to anticoagulation use. Hgb wa 5.9. The patient was given 1 unit prbc which was nearly completed infusing on his arrival to [place]. Patient daughter in room providing medical history. Patient has had a long course of illness since February. She indicated in February had a TIA, and in March was found to be in atrial fibrillation was started on xarelto. Patient had a stent placed in 2001 and was started on Plavix at that time. Patient had recent admission on June 24 for similar symptoms. During that time surgery did EGD and colonoscopy found ? H. pylori. The patient's Plavix and Xarelto was stopped at that time. Since then patient has resumed Xarelto and Plavix. Aspirin on his home meds however his daughter indicating has not taken it in a while. Patient seems forgetful during assessment. We will give a second unit and recheck CBC. Xarelto Plavix and ASA on hold at this time. The patient with bilat lower ext edema. Compression stocking on. The patient is currently in A-fib, needs anticoagulation therapy however it is contraindicated at this time, due to his anemia. Will place foot pumps until hemoglobin normalizes and there are no further s/s bleeding. Protonix strip started. Patient denies shortness of breath. Surgery was consulted at [facility], I spoke with Dr. Tucker and he stated he will only intervene if patient's hemoglobin continues to fall after intervention. Last EGD was completed on 2017. Etiology of the bleed is known to be the patient's anticoagulation and anti-platelet therapy. Past Med Surg Social Fam HX - Past Medical History Medical history: atrial fibrillation, coronary artery disease, GERD, hyperlipidemia, thyroid disease, TIA, other Additional medical history: Parkinson Disease, Orthostatic BP problems Psychiatric history: no psych history - Past Surgical History Surgical History: angioplasty/stent, pacemaker/AICD, vasectomy Additional surgical history: HEAD INJURY "METAL IN HEAD" LEFT EYE LOSS - ARTIFICIAL EYE. Pacemaker - Social History Smoking Status: Never smoker Smokeless Tobacco Status: No Alcohol use: none Drug use: none Internal Medicine - H&P: Meds Aspirin [Lo-Dose Aspirin EC] 81 mg PO DAILY 02/15/17 [History] Carbidopa/Levodopa ER 50/200 [Sinemet ER 50-200 Tab] 1 tab PO BID 02/15/17 [ History] Fludrocortisone Acetate [Florinef] 0.1 mg PO DAILY tablet 05/03/17 [Rx] Acetaminophen [Non-Aspirin] 500 mg PO Q6H PRN 05/28/17 [History] Ferrous Sulfate 325 mg PO HS 05/28/17 [History] Ascorbic Acid [Vitamin C] 500 mg PO DAILY 06/23/17 [History] Finasteride [Proscar] 5 mg PO DAILY 06/23/17 [History] Levothyroxine Sodium [Levoxyl] 75 mcg PO DAILY 06/24/17 [History] Pramipexole [Mirapex] 0.25 mg PO HS 06/24/17 [History] Clopidogrel [Plavix] 75 mg PO DAILY #0 tablet 06/26/17 [Rx] Pantoprazole Sodium 40 mg PO DAILY #30 tablet. 06/26/17 [Rx] Rivaroxaban [Xarelto] 15 mg PO HS #0 06/26/17 [Rx] Amoxicillin [Amoxil] 500 mg PO BID 07/22/17 [History] Atorvastatin Calcium [Lipitor] 20 mg PO DAILY 07/22/17 [History] Clarithromycin [Biaxin] 500 mg PO BID 07/22/17 [History] 3 Allergy/AdvReac Type Severity Reaction Status Date / Time No Known Allergies Allergy Verified 06/23/17 14:28 All Systems PM: A 10-system review of systems was performed and is negative for pertinent findings except as documented above in the HPI. - Constitutional Constitutional: no chills, no fever(s), no night sweats - EENT Eyes: no change in vision, no discharge, no pain, no photophobia Ears: no ear discharge, no ear pain, no tinnitus Nose, mouth and throat: no dysphagia, no nasal discharge, no neck pain, no sore throat - Cardiovascular Cardiovascular ROS IM: no chest pain, no diaphoresis, no dyspnea, no lightheadedness, no palpitations, no syncope - Respiratory Respiratory: no cough, no dyspnea, no wheezing, no excessive phlegm production - Gastrointestinal Gastrointestinal: bloating, diarrhea, melena, no abdominal pain, no hematemesis , no hematochezia, no nausea, no vomiting - Musculoskeletal Musculoskeletal ROS IM: no numbness, no tingling - Integumentary Integumentary IM: no rash, no unusual bruising - Neurological Neurological ROS: no confusion, no convulsions, no focal weakness, no numbness, no tingling, no tremor(s) - Hematologic/Lymphatic Hematologic/Lymphatic: no easy bruising - Constitutional Vitals: Temp Pulse Resp BP Pulse Ox 97.7 F 69 15 153/77 99 07/22/17 16:31 07/22/17 16:31 07/22/17 16:31 07/22/17 16:31 07/22/17 16:31 General appearance: Present: cooperative, A&O X 2, pleasant, answers questions appropriately - Head Head exam: Present: atraumatic, normocephalic - Eye Eye exam: Present: PERRL, conjuntiva pink, sclera anicteric Pupils: Present: PERRL - Neck Neck exam general surgery: Present: supple, trachea midline. Absent: lymphadenopathy - Respiratory Respiratory exam: Present: CTAB. Absent: accessory muscle use, rales, rhonchi, wheezes - Cardiovascular Cardiovascular exam: Present: RRR, +S1, +S2. Absent: diastolic murmur, gallop, rubs, systolic murmur - GI/Abdominal GI/Abdominal exam: Present: distended, normal bowel sounds, soft, no peritoneal signs. Absent: tenderness - Extremities Exam Extremities exam: Present: pedal edema (Wears compression stockings), warm, radial pulses palpable and symmetrical. Absent: calf tenderness, cyanotic - Neurological Exam Neurological exam: Present: CN II-XII intact, oriented X3, no focal deficits. Absent: pronater drift, facial droop, speech deficit - Skin Skin exam: Present: dry, intact - Assessment and plan (1) GI bleeding Current Visit: No Status: Acute Assessment and plan: This is patient's second admission and last month regarding having black stools. This is likely related to his xarelto, aspirin, and Plavix use at home. Monitor cbc frequently until HGB stabilizes. Next cbc is at 2100, when second unit is transfused Surgery consulted. Will intervene if necessary. Baseline hgb goal is between 9-10 IVF's Cardiac monitoring due to anemia and possible hypoxia Protonix drip Monitor daily labs Qualifiers: GI bleed type/associated pathology: unspecified gastrointestinal hemorrhage type Qualified Code(s): K92.2 - Gastrointestinal hemorrhage, unspecified (2) Atrial fibrillation Current Visit: No Status: Chronic Assessment and plan: Xarelto, Plavix and ASA on hold Foot pumps continuous PT INR daily Cardiac monitoring Qualifiers: Atrial fibrillation type: paroxysmal Qualified Code(s): I48.0 - Paroxysmal atrial fibrillation (3) Essential hypertension Current Visit: No Status: Chronic Assessment and plan: Blood pressure marginally uncontrolled at 153/71. Patient currently not on home antihypertensive medications. - Time Spent With Patient Total time spent is greater than 50% in coordination of care (as documented) at patient's floor/unit and/or counseling patient: 25 - 35 minutes <Edward Ellsworth - Last Filed: 07/23/17 07:55> Date of Encounter: 07/22/17 Internal Medicine - H&P: HPI History of present illness: Mr. Berkowitz is a 87 year old male All Systems PM: A 10-system review of systems was performed and is negative for pertinent findings except as documented above in the HPI. - Constitutional Vitals: Temp Pulse Resp BP Pulse Ox 97.8 F 61 18 161/73 98 07/23/17 07:35 07/23/17 07:35 07/23/17 07:35 07/23/17 07:35 07/23/17 07:35 Internal Med - H&P Results - Labs CBC & Chem 7: 07/23/17 03:11 07/23/17 03:11 Labs: Short CBC 07/23/17 Range/Units 03:11 WBC 7.7 (4.3-11.1) K/mcL Hgb 7.8 L D (12.9-16.9) g/dL Hct 24.1 L (37.5-50.1) % Plt Count 227 (140-400) K/mcL Neutrophils # 4.8 (1.6-8.9) K/mcL BMP 07/23/17 03:11 Sodium 142 Potassium 4.1 Chloride 114 H Carbon Dioxide 24 BUN 25 H Creatinine 0.86 Glucose 115 H Calcium 7.9 L Cardiac Enzymes 07/22/17 07/23/17 Range/Units 20:44 03:11 Troponin I < 0.03 < 0.03 (< 0.04) ng/mL - Attending Attestation I have personally performed a face to face evaluation on this patient. I have reviewed and agree with the care plan provided by [employer] TECHNICIAN Michael Martinez. History and Exam by me shows: Mr. Berkowitz is a 87 year old male with history of A. fib on Xarelto for anti coag, TIA, GERD, thyroid disease, pacer, CAD, hyperlipidemia, BPH and recent GI bleed due to angioectasias pt presented to [facility] with melena, generalized weakness and fatigue from last 2 days. He denied any CP. His Hb was 5.9, he was given I U PRBC and transferred to our hospital for further care. Pt denied any CP now. No BM so far here. Gen: A, A< O x 3 Chest : Diminished BS b/l Heart: S1S2 Abd : Soft, NT a/p 1. Acute blood loss anemia 2. recent h/o GI bleed 3. s/p Colonoscopy - Angioectasia and polyp transfuse 1 more U PRBC close monitoring of H/H Dr. Tucker consulted d/c ASA, Plavix and Xarelto Not a good candidate to be on these three meds Recommend to stop taking Plavix and Xarelto forever due to high risk of bleeding. - Time Spent With Patient Total time spent is greater than 50% in coordination of care (as documented) at patient's floor/unit and/or counseling patient:
[2017-07-22] MEDS: Pantoprazole 40 MG in 0.9 % Sodium Chloride Mini Bag 100 ML IVC SCH ×2 (18:47→22:55)
[2017-07-22] MEDS: 0.9 % Sodium Chloride 1,000 ML IVC SCH (18:47)
[2017-07-22] MEDS ORDERED: 0.9 % Sodium Chloride 250 ML ONE (21:46)
[2017-07-23 03:39] LABS: Basophils % 0.4 %; Eosinophils # 0.2 K/mcL (0.0-0.6); Hematocrit 24.1 % (37.5-50.1); Hemoglobin 7.8 g/dL (12.9-16.9); Immature Granulocytes % 0.8 % (0-4); Lymphocytes # 1.9 K/mcL (0.6-4.6); Lymphocytes % 24.3 %; Mean Corpuscular HGB Conc 32.4 g/dL (31.6-35.5); Mean Corpuscular Hemoglobin 30.2 pg (28.0-33.3); Mean Corpuscular Volume 93.4 fL (83.0-100.0); Mean Platelet Volume 10.1 fL (9.4-12.4); Monocytes # 0.7 K/mcL (0.0-1.3); Neutrophils # 4.8 K/mcL (1.6-8.9); Nucleated Red Blood Cells 0.3 /100 WBC (0); Platelet Count 227 K/mcL (140-400); Red Blood Count 2.58 M/mcL (4.19-5.50); Red Cell Distribution Width 16.4 % (11.5-14.5); Segmented Neutrophils % 62.5 %
[2017-07-23 03:44] LABS: INR 1.1; Prothrombin Time 11.9 Seconds (9.4-12.1)
[2017-07-23] MEDS: Pantoprazole 40 MG in 0.9 % Sodium Chloride Mini Bag 100 ML IVC SCH ×4 (03:44→21:02)
[2017-07-23 04:00] LABS: BUN/Creatinine Ratio 29 (6-26); Blood Urea Nitrogen 25 mg/dL (8-23); Calcium 7.9 mg/dL (8.6-10.3); Carbon Dioxide 24 mEq/L (23-29); Chloride 114 mEq/L (98-107); Glucose 115 mg/dL (70-105); Osmolality,Calculated 299 (280-300); Potassium 4.1 mEq/L (3.5-5.1); Sodium 142 mEq/L (136-145); eGFR For African Americans > 60 (> 60); eGFR For Non-African Americans > 60 (> 60)
--- NOTE | 2017-07-23 04:49 | Event Note ---
Date of Encounter: 07/23/17 Time of Encounter: 04:46 Was notifed that patient had return lab result of 7.8. Patient was evaluated bedside. Patient notes that he does feel more confused than normal. He is alert and oriented x2. Patient denies CP, SOB, abdominal pain. On physical exam patient is RRR, CTA, and has a non-acute abdomen. Will order 1 unit of pRBC for symptomatic anemia hgb <8. Patient
[2017-07-23] MEDS ORDERED: 0.9 % Sodium Chloride 250 ML ONE (04:54)
--- NOTE | 2017-07-23 04:56 | Event Note ---
Date of Encounter: 07/23/17 Time of Encounter: 04:52 I was notified of hgb 7.8. Patient has suspected GI bleed, and had 2 units of prbc yesterday with a hgb of 5.9. Patient was evaluated at bedside. Patient reports feeling more confused than normal. He is AOx2. patient denies chest pain, SOB, or abdominal pain. On physical exam, patient has RRR, CTA lungs, and soft, non-tender non-acute abdomen. Will replace 1 unit of pRBC at this time due to symptomatic anemia and hgb <8.
[2017-07-23] MEDS: Carbidopa/Levodopa ER 50/200 TABLET PO SCH ×2 (09:21→21:02)
[2017-07-23] MEDS: 0.9 % Sodium Chloride 1,000 ML IVC SCH (09:21)
[2017-07-23 10:22] LABS: Hematocrit 25.3 % (37.5-50.1)
[2017-07-23] MEDS ORDERED: 0.9 % Sodium Chloride 500 ML ONE (13:50)
--- NOTE | 2017-07-23 14:47 | Internal Med Progress Note ---
Date of Encounter: 07/23/17 Time of Encounter: 09:15 - Assessment and plan (1) Anemia Current Visit: Yes Status: Acute Assessment and plan: Baseline hemoglobin noted to be between 9-10. Hemoglobin at admission was 5.9, now improved to 7.8 status post 2 units PRBC transfusion. Will give another unit PRBC and continue to monitor hemoglobin closely. Monitor vital signs closely. Anemia is associated with melena, likely due to GI bleed from angiodysplasia. EGD done about 4 weeks ago showed gastric mucosal atrophy, normal esophagus and duodenum. Colonoscopy showed recently bleeding angiectasia status post argon plasma coagulation, 1 nonbleeding polyp status post removal. Continue to monitor hemoglobin closely. Patient is on Plavix and Xarelto at home, now on hold. He may not be a candidate for full anticoagulation given recurrent GI bleeds and anemia. Qualifiers: Anemia type: other cause Other causes of anemia: acute posthemorrhagic Qualified Code(s): D62 - Acute posthemorrhagic anemia (2) GI bleeding Current Visit: Yes Status: Acute Assessment and plan: Plan as above. Qualifiers: GI bleed type/associated pathology: melena Qualified Code(s): K92.1 - Melena (3) BPH (benign prostatic hyperplasia) Current Visit: Yes Status: Chronic Qualifiers: Lower urinary tract symptom presence: unspecified whether lower urinary tract symptoms present Qualified Code(s): N40.0 - Benign prostatic hyperplasia without lower urinary tract symptoms (4) Atrial fibrillation Current Visit: Yes Status: Chronic Assessment and plan: Status post pacemaker placement due to sick sinus syndrome. Currently rate controlled. Continue telemetry monitoring; not on rate control medications at home. Hold Xarelto due to GI bleed. Qualifiers: Atrial fibrillation type: paroxysmal Qualified Code(s): I48.0 - Paroxysmal atrial fibrillation (5) CAD (coronary artery disease) Current Visit: Yes Status: Chronic Assessment and plan: Stable. Hold aspirin and Plavix for now. Qualifiers: Coronary Disease-Associated Artery/Lesion type: [place] artery [place] vs. transplanted heart: [place] heart Associated angina: without angina Qualified Code(s): I25.10 - Atherosclerotic heart disease of [place] coronary artery without angina pectoris (6) Essential hypertension Current Visit: Yes Status: Chronic Assessment and plan: Blood pressure noted to be elevated. Hold fludrocortisone for now. Patient has history of hypotension due to autonomic dysfunction and orthostatic hypotension related to Parkinson disease. (7) HLD (hyperlipidemia) Current Visit: Yes Status: Chronic Qualifiers: Hyperlipidemia type: unspecified Qualified Code(s): E78.5 - Hyperlipidemia , unspecified (8) Hypothyroidism Current Visit: Yes Status: Chronic Qualifiers: Hypothyroidism type: unspecified Qualified Code(s): E03.9 - Hypothyroidism , unspecified (9) Parkinson disease Current Visit: Yes Status: Chronic Assessment and plan: Continue Sinemet. - Time Spent With Patient Total time spent is greater than 50% in coordination of care (as documented) at patient's floor/unit and/or counseling patient: - Subjective Interval history: Reports feeling well. No chest or abdominal pain, no nausea, vomiting, shortness of breath. Had melanotic stools at home. Noted to be on aspirin, Plavix, and Xarelto at home. - Constitutional Vitals: Temp Pulse Resp BP Pulse Ox 98.7 F 64 16 136/57 99 07/23/17 14:23 07/23/17 14:23 07/23/17 14:23 07/23/17 14:23 07/23/17 14:23 General appearance: Present: cooperative, A&O X 2, pleasant, answers questions appropriately - Respiratory Respiratory exam: Present: CTAB. Absent: accessory muscle use, rales, rhonchi, wheezes - Cardiovascular Cardiovascular exam: Present: irregular rhythm, +S1, +S2. Absent: diastolic murmur, gallop, rubs, systolic murmur - GI/Abdominal GI/Abdominal exam: Present: normal bowel sounds, soft, no peritoneal signs. Absent: distended, tenderness - Extremities Exam Extremities exam: Present: full ROM, pedal edema (trace), warm, radial pulses palpable and symmetrical. Absent: calf tenderness, cyanotic - Neurological Exam Neurological exam: Present: CN II-XII intact, oriented X3, no focal deficits. Absent: pronater drift, facial droop, speech deficit Internal Medicine: Result - Labs CBC & Chem 7: 07/23/17 10:11 07/23/17 03:11 Labs: Short CBC 07/23/17 07/23/17 Range/Units 03:11 10:11 WBC 7.7 (4.3-11.1) K/mcL Hgb 7.8 L D 8.0 L (12.9-16.9) g/dL Hct 24.1 L 25.3 L (37.5-50.1) % Plt Count 227 (140-400) K/mcL Neutrophils # 4.8 (1.6-8.9) K/mcL BMP 07/23/17 03:11 Sodium 142 Potassium 4.1 Chloride 114 H Carbon Dioxide 24 BUN 25 H Creatinine 0.86 Glucose 115 H Calcium 7.9 L Cardiac Enzymes 07/22/17 07/23/17 07/23/17 Range/Units 20:44 03:11 10:11 Troponin I < 0.03 < 0.03 < 0.03 (< 0.04) ng/mL - ABG Interpretation ABG results: PT/INR, D-dimer PT 11.9 Seconds (9.4-12.1) 07/23/17 03:11 - VTE Documentation of Mechanical Device: Venous foot pump, device Consult Discharge Plan - Plan Referrals: Jero Hernández DO [Primary Care Provider] -
[2017-07-23 18:37] LABS: Hematocrit 26.2 % (37.5-50.1); Hemoglobin 8.6 g/dL (12.9-16.9)
[2017-07-23] MEDS: Amoxicillin 500 MG CAPSULE PO SCH (22:12)
[2017-07-24 01:25] LABS: Hematocrit 28.5 % (37.5-50.1); Hemoglobin 9.3 g/dL (12.9-16.9)
[2017-07-24 01:29] LABS: BUN/Creatinine Ratio 22 (6-26); Blood Urea Nitrogen 20 mg/dL (8-23); Calcium 8.1 mg/dL (8.6-10.3); Carbon Dioxide 22 mEq/L (23-29); Chloride 113 mEq/L (98-107); Glucose 124 mg/dL (70-105); Osmolality,Calculated 294 (280-300); Sodium 140 mEq/L (136-145); eGFR For African Americans > 60 (> 60); eGFR For Non-African Americans > 60 (> 60)
[2017-07-24] MEDS: Pantoprazole 40 MG in 0.9 % Sodium Chloride Mini Bag 100 ML IVC SCH ×2 (02:27→09:07)
[2017-07-24 07:03] VITALS: BP 178/81
[2017-07-24] MEDS: Carbidopa/Levodopa ER 50/200 TABLET PO SCH (07:38)
[2017-07-24 07:53] LABS: Basophils # 0.1 K/mcL (0.0-0.2); Basophils % 0.6 %; Eosinophils # 0.4 K/mcL (0.0-0.6); Eosinophils % 4.4 %; Hematocrit 29.5 % (37.5-50.1); Hemoglobin 9.4 g/dL (12.9-16.9); Immature Granulocytes % 0.6 % (0-4); Lymphocytes # 1.5 K/mcL (0.6-4.6); Lymphocytes % 19.6 %; Mean Corpuscular HGB Conc 31.9 g/dL (31.6-35.5); Mean Corpuscular Hemoglobin 28.7 pg (28.0-33.3); Mean Corpuscular Volume 90.2 fL (83.0-100.0); Mean Platelet Volume 9.9 fL (9.4-12.4); Monocytes # 0.7 K/mcL (0.0-1.3); Monocytes % 8.3 %; Neutrophils # 5.2 K/mcL (1.6-8.9); Platelet Count 260 K/mcL (140-400); Red Blood Count 3.27 M/mcL (4.19-5.50); Red Cell Distribution Width 17.3 % (11.5-14.5); Segmented Neutrophils % 66.5 %
[2017-07-24] MEDS ORDERED: Finasteride 5 MG TABLET PO SCH (09:00)
[2017-07-24] MEDS ORDERED: Ascorbic Acid 500 MG TABLET PO SCH (09:00)
[2017-07-24] MEDS: Amoxicillin 500 MG CAPSULE PO SCH (09:06)
--- NOTE | 2017-07-24 13:16 | Cardiology Consult Note ---
Date of Encounter: 07/24/17 Time of Encounter: 13:12 Assessment and Plan (1) Anemia Current Visit: Yes Status: Acute Primary team suspects anemia is due to GI bleed from angiodysplasia. EGD done last month showed gastric mucosal atrophy, normal esophagus and duodenum. Colonoscopy showed recently bleeding angiectasia status post argon plasma coagulation, 1 nonbleeding polyp status post removal. HGB as low as 5.9, now 9.4 s/p PRBCs. Okay to stop Plavix and Xarelto given recurrent GI bleeds. No recent PCI. High CVA risk--[id number]. Pt and family aware of increased risk not on anticoagulation. Can re-evaluate in the future if HGB remains stable. Ideally, would recommend resuming 81mg ASA as outpt. Qualifiers: Anemia type: other cause Other causes of anemia: acute posthemorrhagic Qualified Code(s): D62 - Acute posthemorrhagic anemia (2) PAF (paroxysmal atrial fibrillation) Current Visit: Yes Status: Acute Known PAF, previously on Xarelto, stopped on admission given HGB as low as 5.9. Recurrent GI bleed. Pt not on any home AV danya blockers. 12 hr tele AVG HR 62, currently SR. Add low dose BB given PAF and hypertensive. PPM in place. CHADS VASc 7 (HTN, age, CAD, TIA, HTN). High CVA risk. However, given HGB 5.9 on presentation requiring PRBCs, do not recommend vermin exterminator anticoagulation at this time. R/B/A discussed and family in agreement. They are aware of high CVA risk not on anticoagulation. Recommend 81mg ASA once HGB remains stable. Continue Statin. (3) CAD (coronary artery disease) Current Visit: Yes Status: Chronic Hx CAD and PCI in remote past (2001). Okay to hold ASA and Plavix since there is no recent PCI. Denies chest pain or dyspnea. Continue Statin. Starting low dose BB. Qualifiers: Coronary Disease-Associated Artery/Lesion type: [place] artery [place] vs. transplanted heart: [place] heart Associated angina: without angina Qualified Code(s): I25.10 - Atherosclerotic heart disease of [place] coronary artery without angina pectoris Discussion w patient/family: The assessment and plan as outlined above was discussed with the patient and/or family members who expressed understanding and agreement. All questions were answered. Thank you for involving us in the care of your patient. Please call with any questions. I will discuss all the above with Dr. Cohen and make changes as necessary. History of Present Illness Consult date: 07/24/17 Requesting physician: She Vides Consult reason: Anticoagulation recs Chief complaint: melena History of present illness: Mr. Berkowitz is a 87 year old male with PMH of PAF, TIA, GERD, thyroid disease, tachy -douglas syndrome s/p PPM, CAD with PCI in remote past, hyperlipidemia, BPH that presented from [place] with melena and diarrhea x 2 days. Hgb was 5.9. Per pt's , was on triple therapy--ASA, Plavix, Xarelto until approximately 2 weeks ago when she stopped his ASA. Has been on Plavix and Xarelto since that time. Cardiology consulted for anticoagulation recommendations. Pt reports LE edema that has improved. Denies chest pain or dyspnea. Pt is confused, reported someone standing behind his bed and there was not. Prior CV testing: TTE 02/15/17: LVEF 60-65%. Asymmetric basal septal hypertrophy. Indeterminate diastolic function. Normal right ventricular structure and function. Mild aortic regurgitation. Mild mitral regurgitation. No pulmonary hypertension. Unable to perform bubble study - poor IV access. Limited TTE 03/23/17: LVEF 60-65%. Device interrogation 04/27/17: Appears to be intermittent atrial fibrillation since implant 03/30/17. Past Med Surg Social Fam HX - Past Medical History Medical history: atrial fibrillation, coronary artery disease, GERD, hyperlipidemia, thyroid disease, TIA, other Additional medical history: Parkinson Disease, Orthostatic BP problems Psychiatric history: no psych history - Past Surgical History Surgical History: angioplasty/stent, pacemaker/AICD, vasectomy Additional surgical history: HEAD INJURY "METAL IN HEAD" LEFT EYE LOSS - ARTIFICIAL EYE. Pacemaker - Social History Smoking Status: Never smoker Smokeless Tobacco Status: No Alcohol use: none Drug use: none Medications and Allergies Aspirin [Lo-Dose Aspirin EC] 81 mg PO DAILY 02/15/17 [History] Carbidopa/Levodopa ER 50/200 [Sinemet ER 50-200 Tab] 1 tab PO BID 02/15/17 [ History] Fludrocortisone Acetate [Florinef] 0.1 mg PO DAILY tablet 05/03/17 [Rx] Acetaminophen [Non-Aspirin] 500 mg PO Q6H PRN 05/28/17 [History] Ferrous Sulfate 325 mg PO BID 05/28/17 [History] Ascorbic Acid [Vitamin C] 500 mg PO DAILY 06/23/17 [History] Finasteride [Proscar] 5 mg PO DAILY 06/23/17 [History] Levothyroxine Sodium [Levoxyl] 75 mcg PO DAILY 06/24/17 [History] Pramipexole [Mirapex] 0.25 mg PO HS 06/24/17 [History] Clopidogrel [Plavix] 75 mg PO DAILY #0 tablet 06/26/17 [Rx] Pantoprazole Sodium 40 mg PO DAILY #30 tablet.dr 06/26/17 [Rx] Rivaroxaban [Xarelto] 15 mg PO HS #0 06/26/17 [Rx] Amoxicillin [Amoxil] 500 mg PO BID 07/22/17 [History] Atorvastatin Calcium [Lipitor] 20 mg PO DAILY 07/22/17 [History] Clarithromycin [Biaxin] 500 mg PO BID 07/22/17 [History] 3 Allergy/AdvReac Type Severity Reaction Status Date / Time No Known Allergies Allergy Verified 07/23/17 11:09 All Systems Review: The remainder of the systems were reviewed and are negative - Cardiovascular Cardiovascular: leg edema - Gastrointestinal Gastrointestinal: melena Physical Examination Vital Signs Temp Pulse Resp BP Pulse Ox 07/24/17 06:59 97.8 F 60 18 178/81 99 07/24/17 04:50 98.5 F 62 18 179/85 99 07/24/17 00:05 98.5 F 61 18 174/86 98 07/23/17 21:13 97.4 F L 62 18 165/74 99 07/23/17 17:07 97.3 F L 66 18 153/66 100 07/23/17 15:47 98.3 F 63 16 162/71 100 07/23/17 14:23 98.7 F 64 16 136/57 99 07/23/17 14:08 98.9 F 64 16 150/74 100 Intake and Output 07/23/17 07/24/17 07/24/17 23:59 07:59 15:59 Intake Total 771 / 771 200 / 200 240 / 240 Output Total 125 / 125 880 / 880 200 / 200 Balance 646 / 646 -680 / -680 40 / 40 Intake: IV Fluids 100 / 100 200 / 200 Protonix 40 MG In 0.9 % Sodium 100 / 100 200 / 200 Chloride (Mini-Bag +) 100 ML @ 20 mls/hr IVC .Q5H [facility] Rx#: [id number] Oral 340 / 340 0 / 0 240 / 240 Blood Product 331 / 331 Rbcs Leuko Poor As-1 Unit 331 / 331 [id number] Output: Urine 125 / 125 880 / 880 200 / 200 Other: Meal Dinner Breakfast Percent of Meal Consumed 75% 95% Stool Size Smear # Voids 1 # Urine Diapers 1 Weight 80.8 kg Patient Weight 07/24/17 23:59 Weight 80.8 kg General: Conversant, No Apparent Distress HEENT: Atraumatic, Normocephaly, Mucus Membranes Moist Neck: Normal carotid pulses Cardiac: Other (irregularly irregular) Lungs: Other (diminished) Neuro: Other (confused) Abdomen: Soft, Non-Tender Skin: No rashes noted on visualized skin Musculoskeletal: No Chest Wall Tenderness Extremities: Other (2+ BLE edema) Results 07/24/17 07:22 07/24/17 00:58 Lab Results 07/23/17 07/24/17 07/24/17 18:20 00:58 00:58 WBC Hgb 8.6 L 9.3 L Hct 26.2 L 28.5 L Plt Count INR Sodium 140 Potassium 4.0 Chloride 113 H Carbon Dioxide 22 L BUN 20 Creatinine 0.93 Glucose 124 H Calcium 8.1 L 07/24/17 07/24/17 00:58 07:22 WBC 7.9 Hgb 9.4 L Hct 29.5 L Plt Count 260 INR 1.0 Sodium Potassium Chloride Carbon Dioxide BUN Creatinine Glucose Calcium Short CBC 07/24/17 07/24/17 07/23/17 Range/Units 07:22 00:58 18:20 WBC 7.9 (4.3-11.1) K/mcL Hgb 9.4 L 9.3 L 8.6 L (12.9-16.9) g/dL Hct 29.5 L 28.5 L 26.2 L (37.5-50.1) % Plt Count 260 (140-400) K/mcL Neutrophils # 5.2 (1.6-8.9) K/mcL BMP 07/24/17 Range/Units 00:58 Sodium 140 (136-145) mEq/L Potassium 4.0 (3.5-5.1) mEq/L Chloride 113 H (98-107) mEq/L Carbon Dioxide 22 L (23-29) mEq/L BUN 20 (8-23) mg/dL Creatinine 0.93 (0.70-1.30) mg/dL Glucose 124 H (70-105) mg/dL Calcium 8.1 L (8.6-10.3) mg/dL Active Medications Amoxicillin (Amoxil) 500 mg PO BID [facility] PRN Reason: Protocol Stop: 01/22/18 21:01 Last Admin: 07/24/17 09:06 Dose: 500 mg Ascorbic Acid (Vitamin C) 500 mg PO DAILY [facility] Stop: 01/23/18 09:01 Last Admin: 07/24/17 09:06 Dose: 500 mg Atorvastatin Calcium (Lipitor) 20 mg PO DAILY [facility] Stop: 01/23/18 09:01 Last Admin: 07/24/17 09:06 Dose: 20 mg Carbidopa/Levodopa (Sinemet Er 50-200 Tab) 1 each PO BID [facility] Stop: 01/22/18 09:01 Last Admin: 07/24/17 07:38 Dose: 1 each Ferrous Sulfate (Ferrous Sulfate) 325 mg PO BIDWM [facility] Stop: 01/22/18 17:01 Last Admin: 07/24/17 09:06 Dose: 325 mg Finasteride (Proscar) 5 mg PO DAILY [facility] PRN Reason: Protocol Stop: 01/23/18 09:01 Last Admin: 07/24/17 09:06 Dose: 5 mg Hydralazine HCl (Hydralazine) 10 mg IVP Q6HR PRN PRN Reason: SBP>160 or DBP>110 Stop: 01/23/18 09:00 Last Admin: 07/24/17 09:26 Dose: 10 mg Levothyroxine Sodium (Synthroid) 75 mcg PO DAILY [facility] Stop: 01/22/18 09:01 Last Admin: 07/24/17 09:06 Dose: 75 mcg Naloxone HCl (Narcan) 0.4 mg IVP Q2MIN PRN PRN Reason: SEE COMMENTS Stop: 01/21/18 17:28 Omeprazole (Prilosec) 20 mg PO DAILY [facility] Stop: 01/24/18 09:01 Pramipexole Dihydrochloride (Mirapex) 0.25 mg PO HS [facility] Stop: 01/22/18 21:01 Last Admin: 07/23/17 22:12 Dose: 0.25 mg - Imaging and Cardiology Echo: report reviewed - EKG Interpretation EKG results cardiology: personally reviewed (SR), other (12 hr tele AVG HR 62, PAF) Consult Discharge Plan - Plan Referrals: Jero Hernández DO [Primary Care Provider] - 07/28/17 11:00 am
--- NOTE | 2017-07-24 15:02 | Discharge Summary ---
- NOTES TO OUTPATIENT PROVIDER Notes to Outpatient Provider: GI bleed and anemia, now off Xarelto and Plavix; f /up Hb in 2 weeks and Cardiology f/up following that Orders not resulted at time of discharge: Pending orders 07/25/17 04:00 PT/INR [Prothrombin Time INR] [COAG] AM 0400 Date of Encounter: 07/24/17 Time of Encounter: 09:45 - Discharge Diagnosis (1) Anemia Priority: Primary Status: Acute Qualifiers: Anemia type: other cause Other causes of anemia: acute posthemorrhagic Qualified Code(s): D62 - Acute posthemorrhagic anemia (2) GI bleeding Priority: Primary Status: Acute Qualifiers: GI bleed type/associated pathology: melena Qualified Code(s): K92.1 - Melena (3) BPH (benign prostatic hyperplasia) Priority: Secondary Status: Chronic Qualifiers: Lower urinary tract symptom presence: unspecified whether lower urinary tract symptoms present Qualified Code(s): N40.0 - Benign prostatic hyperplasia without lower urinary tract symptoms (4) Atrial fibrillation Priority: Secondary Status: Chronic Qualifiers: Atrial fibrillation type: paroxysmal Qualified Code(s): I48.0 - Paroxysmal atrial fibrillation (5) CAD (coronary artery disease) Priority: Secondary Status: Chronic Qualifiers: Coronary Disease-Associated Artery/Lesion type: [place] artery [place] vs. transplanted heart: [place] heart Associated angina: without angina Qualified Code(s): I25.10 - Atherosclerotic heart disease of [place] coronary artery without angina pectoris (6) Essential hypertension Priority: Secondary Status: Chronic (7) HLD (hyperlipidemia) Priority: Secondary Status: Chronic Qualifiers: Hyperlipidemia type: unspecified Qualified Code(s): E78.5 - Hyperlipidemia , unspecified (8) Hypothyroidism Priority: Secondary Status: Chronic Qualifiers: Hypothyroidism type: unspecified Qualified Code(s): E03.9 - Hypothyroidism , unspecified (9) Parkinson disease Priority: Secondary Status: Chronic Hospital course: Mr. Berkowitz is a 87 year old male with the above medical problems, who was admitted with melena and anemia. His hemoglobin was 5.9 at admission, improved to around 8.5 after 3 units PRBC transfusion. He was recently admitted with similar complaints and noted to have GI bleed. EGD done about 4 weeks ago showed gastric mucosal atrophy, normal esophagus and duodenum. Colonoscopy showed recently bleeding angiectasia status post argon plasma coagulation, 1 nonbleeding polyp status post removal. He is noted to be on aspirin, Plavix and Xarelto at home, all of which have been held since admission. Case was discussed with cardiology, who recommended only low-dose aspirin at this time due to history of CVA, atrial fibrillation, CAD with coronary stents. Patient will get his CBC checked in 2 weeks and follow-up with cardiology. Patient has history of hypotension due to autonomic dysfunction related to Parkinson disease and is not on any antihypertensives at home. However, his blood pressure is noted to be significantly elevated throughout his hospitalization with systolic blood pressure remaining in the 170s to 180s. He is at risk for repeat stroke with such high blood pressures and he is being started on low-dose beta ally at this time. Case was also discussed with his PCP , who agreed with the management and agreed to f/up his Hb and BP. Discharge discussed with: patient, family, other (PCP) - Time Spent with Patient Total time spent providing and/or coordinating discharge services: Greater than 30 minutes (45 min) - Discharge Medications Prescriptions: Metoprolol [Lopressor] 25 mg PO BID #30 tablet Home Medications: Aspirin [Lo-Dose Aspirin EC] 81 mg PO DAILY 02/15/17 [History] Carbidopa/Levodopa ER 50/200 [Sinemet ER 50-200 Tab] 1 tab PO BID 02/15/17 [ History] Fludrocortisone Acetate [Florinef] 0.1 mg PO DAILY tablet 05/03/17 [Rx] Acetaminophen [Non-Aspirin] 500 mg PO Q6H PRN 05/28/17 [History] Ferrous Sulfate 325 mg PO BID 05/28/17 [History] Ascorbic Acid [Vitamin C] 500 mg PO DAILY 06/23/17 [History] Finasteride [Proscar] 5 mg PO DAILY 06/23/17 [History] Levothyroxine Sodium [Levoxyl] 75 mcg PO DAILY 06/24/17 [History] Pramipexole [Mirapex] 0.25 mg PO HS 06/24/17 [History] Pantoprazole Sodium 40 mg PO DAILY #30 tablet. 06/26/17 [Rx] Amoxicillin [Amoxil] 500 mg PO BID 07/22/17 [History] Atorvastatin Calcium [Lipitor] 20 mg PO DAILY 07/22/17 [History] Clarithromycin [Biaxin] 500 mg PO BID 07/22/17 [History] Metoprolol [Lopressor] 25 mg PO BID #30 tablet 07/24/17 [Rx] Allergies/Adverse Reactions: 3 Allergy/AdvReac Type Severity Reaction Status Date / Time No Known Allergies Allergy Verified 07/23/17 11:09 Date of admission: 07/22/17 16:15 Primary care physician: Jero Hernández DO Consults: 07/24/17 10:03 Consult to Cardiology [CONS] Routine Comment: Consulting Provider: Cardiology [place] Reason for Consult: Anticoagulation recommendations for a.fib, CVA, CAD/ stents, on ASA/Plavix/Xarelto, with recurrent GI bleeds and anemia Call Completed: Yes Discharging clinician: She Vides Anticipated date of discharge: 07/24/17 - Constitutional Vitals: Temp Pulse Resp BP Pulse Ox 97.8 F 60 18 178/81 99 07/24/17 06:59 07/24/17 06:59 07/24/17 06:59 07/24/17 06:59 07/24/17 06:59 General appearance: Present: A&O X 3, answers questions appropriately - Cardiovascular Cardiovascular exam: Present: irregular rhythm, +S1, +S2. Absent: diastolic murmur, gallop, rubs, systolic murmur - Patient Status Disposition: Home Health Service Condition: Fair Functional capacity at discharge: uses cane/walker Overall status at discharge: patient is progressing back to baseline - Discharge Instructions Instructions: Metoprolol (By mouth), Atrial Fibrillation (DC), Hypothyroidism ( DC), Anemia (GEN) Follow Up With: Jero Hernández DO [Primary Care Provider] - 07/28/17 11:00 am Thompson Cohen DO [Partnered Physician] - (Cardiology office is arranging appointment for around 2-3 weeks after d/c. They will call you with appt date & time.) Additional Instructions: Please get blood drawn for your blood count in 2 weeks after d/c. Lab slip given to you, take this sheet with you to laboratory. We called your prescription in to [facility]. - Diet and Activity Activity: as per physical therapy, resume usual activities as tolerated Diet: low fat, low cholesterol, low salt diet - VTE Documentation of Mechanical Device: Venous foot pump, device
--- NOTE | 2017-07-24 15:06 | Physician Discharge Referral ---
Home Health/Hosp Referral Info Transfer to: Home Health Attending Provider: She Vides Provider in Charge Post Discharge: PCP - Diagnosis (1) Anemia Priority: Primary Status: Acute (2) GI bleeding Priority: Primary Status: Acute (3) BPH (benign prostatic hyperplasia) Priority: Secondary Status: Chronic (4) Atrial fibrillation Priority: Secondary Status: Chronic (5) CAD (coronary artery disease) Priority: Secondary Status: Chronic (6) Essential hypertension Priority: Secondary Status: Chronic (7) HLD (hyperlipidemia) Priority: Secondary Status: Chronic (8) Hypothyroidism Priority: Secondary Status: Chronic (9) Parkinson disease Priority: Secondary Status: Chronic - Respiratory Orders Smoking Cessation: Smoking cessation has been advised. For more information, call the [place] Tobacco Quit Line at 7-028-AIJQ-NOW. - Diet/Nutrition Diet/Nutrition Orders: No Added Salt (MYESHA), Cardiac - Activity Activity Orders: Ambulate, Walker - Services Needed Following services are medically necessary services: Nursing, Physical Therapy, Occupational Therapy - Transfer Medications Prescriptions: Metoprolol [Lopressor] 25 mg PO BID #30 tablet Home Medications: Aspirin [Lo-Dose Aspirin EC] 81 mg PO DAILY 02/15/17 [History] Carbidopa/Levodopa ER 50/200 [Sinemet ER 50-200 Tab] 1 tab PO BID 02/15/17 [ History] Fludrocortisone Acetate [Florinef] 0.1 mg PO DAILY tablet 05/03/17 [Rx] Acetaminophen [Non-Aspirin] 500 mg PO Q6H PRN 05/28/17 [History] Ferrous Sulfate 325 mg PO BID 05/28/17 [History] Ascorbic Acid [Vitamin C] 500 mg PO DAILY 06/23/17 [History] Finasteride [Proscar] 5 mg PO DAILY 06/23/17 [History] Levothyroxine Sodium [Levoxyl] 75 mcg PO DAILY 06/24/17 [History] Pramipexole [Mirapex] 0.25 mg PO HS 06/24/17 [History] Pantoprazole Sodium 40 mg PO DAILY #30 tablet. 06/26/17 [Rx] Amoxicillin [Amoxil] 500 mg PO BID 07/22/17 [History] Atorvastatin Calcium [Lipitor] 20 mg PO DAILY 07/22/17 [History] Clarithromycin [Biaxin] 500 mg PO BID 07/22/17 [History] Metoprolol [Lopressor] 25 mg PO BID #30 tablet 07/24/17 [Rx] Allergies/Adverse Reactions: 3 Allergy/AdvReac Type Severity Reaction Status Date / Time No Known Allergies Allergy Verified 07/23/17 11:09 Certification: Further, I certify that my clinical findings support that this patient is homebound (i.e. absences from home require considerable and taxing effort and are for medical reasons or restorationist services or infrequently or short duration when for other reasons) because: Homebound Reason: Patient requires assistance of a person or device to safely leave home, Leaving home requires considerable and taxing effort due to condition Attestation: My signature below is to certify that this patient is under my care and that I, or nurse practitioner, or a physician's clerical assistant working with me, has a face-to -face encounter with this patient.
== END 2017-07-24 16:22 | disposition home health service (06) ==
LOC: SUATTDRO 16:15 → 2NENU 16:15 → INTOOBSV 16:15
PROVIDERS: ADMIT Family Medicine; ATTEND Internal Medicine

== ENCOUNTER 2018-12-27 10:54 | Inpatient (IN) ==
[2018-12-27] MEDS ORDERED: 0.9 % Sodium Chloride 1,000 ML IVC ONE (11:14)
[2018-12-27 11:19] LABS: Basophils % 0.2 %; Eosinophils # 0.1 K/mcL (0.0-0.6); Eosinophils % 1.1 %; Hematocrit 38.8 % (37.5-50.1); Hemoglobin 13.1 g/dL (12.9-16.9); Immature Granulocytes % 0.6 % (0-4); Lymphocytes # 0.9 K/mcL (0.6-4.6); Lymphocytes % 11.2 %; Mean Corpuscular HGB Conc 33.8 g/dL (31.6-35.5); Mean Corpuscular Hemoglobin 32.8 pg (28.0-33.3); Mean Corpuscular Volume 97.2 fL (83.0-100.0); Mean Platelet Volume 11.1 fL (9.4-12.4); Monocytes # 0.7 K/mcL (0.0-1.3); Monocytes % 8.1 %; Neutrophils # 6.4 K/mcL (1.6-8.9); Platelet Count 152 K/mcL (140-400); Red Blood Count 3.99 M/mcL (4.19-5.50); Red Cell Distribution Width 15.2 % (11.5-14.5); Segmented Neutrophils % 78.8 %; White Blood Count 8.2 K/mcL (4.3-11.1)
[2018-12-27 11:24] LABS: VBG HCO3 28 mEq/L (21-27); VBG PCO2 46 mmHg (41-51); VBG PH 7.39 pH Units (7.32-7.42); VBG PO2 135 mmHg (25-50)
[2018-12-27 11:28] LABS: Bilirubin,Urine Negative (Negative); Blood,Urine Small (Negative); Clarity,Urine Cloudy (Clear); Color,Urine Yellow (Yellow); Glucose,Urine (UA) Normal (Normal); Ketones,Urine Negative (Negative); Leukocyte Esterase,Urine Moderate (Negative); Nitrite,Urine Negative (Negative); PH,Urine 5.5 pH Units (5.0-8.0); Protein,Urine Trace mg/dL (Neg-Trace); Specific Gravity,Urine 1.019 (1.010-1.025); Urobilinogen,Urine Normal (Normal)
[2018-12-27 11:29] LABS: Bacteria,Urine None Seen per hpf (None-Few); RBC,Urine 15-30 per hpf (0-3); Squamous Epithelial Cell,Urine Many per lpf (None-Few); WBC,Urine 15-30 per hpf (0-3)
[2018-12-27 11:38] LABS: Hyaline Casts,Urine Few per lpf (None-Few); Mucus,Urine Moderate (Few); Renal Epithelial Cells,Urine Few per hpf (None-Few)
[2018-12-27 11:39] LABS: Transitional Epi Cells,Urine Few per hpf (None-Few)
[2018-12-27] MEDS ORDERED: Morphine Sulfate 2 MG/ML SYRINGE IVP ONE (11:49)
[2018-12-27 12:00] LABS: Prothrombin Time 11.7 Seconds (9.4-12.1)
[2018-12-27 12:02] LABS: Activated Partial Thrombo Time 40.3 Seconds (26.0-36.0)
[2018-12-27] MEDS ORDERED: Cefepime HCl 2,000 MG in 0.9 % Sodium Chloride Mini Bag 100 ML IVPB STA (12:27)
[2018-12-27] MEDS ORDERED: Azithromycin 500 MG in 0.9 % Sodium Chloride 250 ML IVPB ONE (12:27)
[2018-12-27 13:25] LABS: Alanine Aminotransferase 4 Units/L (7-52); Albumin 3.4 g/dL (3.5-5.7); Albumin/Globulin Ratio 1.2 (1.1-2.2); Alkaline Phosphatase 88 Units/L (34-104); Aspartate Amino Transferase 15 Units/L (13-39); BUN/Creatinine Ratio 29 (6-26); Bilirubin,Direct 0.1 mg/dL (0.0-0.2); Bilirubin,Indirect 0.4 mg/dL (0.0-1.0); Bilirubin,Total 0.5 mg/dL (0.3-1.0); Blood Urea Nitrogen 25 mg/dL (8-23); Calcium 8.8 mg/dL (8.6-10.3); Carbon Dioxide 27 mEq/L (23-29); Chloride 108 mEq/L (98-107); Globulin 2.8 g/dL (2.4-3.5); Glucose 100 mg/dL (70-105); Magnesium 2.2 mg/dL (1.6-2.6); Osmolality,Calculated 296 (280-300); Phosphorous 2.8 mg/dL (2.7-4.5); Potassium 4.3 mEq/L (3.5-5.1); Sodium 141 mEq/L (136-145); Total Protein 6.2 g/dL (6.4-8.9); eGFR For African Americans > 60 (> 60); eGFR For Non-African Americans > 60 (> 60)
[2018-12-27] MEDS ORDERED: Acetaminophen 325 MG TABLET PO PRN (15:06)
[2018-12-27] MEDS ORDERED: Naloxone 0.4 MG/ML INJ IVP PRN (15:06)
[2018-12-27] MEDS ORDERED: Ondansetron 4 MG/2 ML VIAL IVP PRN (15:06)
[2018-12-27] MEDS: D5% in 0.9% NACL 1,000 ML IVC SCH (17:09)
[2018-12-27] MEDS ORDERED: traZODone 50 MG TABLET PO PRN (18:59)
[2018-12-27] MEDS: Rivastigmine Tartrate (oral) 1.5 MG CAPSULE PO SCH (21:10)
[2018-12-27] MEDS: *HR* Heparin 5,000 UNIT/ML VIAL SQ SCH (21:19)
[2018-12-27] MEDS: Carbidopa/Levodopa ER 50/200 TABLET PO SCH (21:19)
[2018-12-27] MEDS: Lacri-Lube 3.5 GM TUBE BOTH EYES SCH (21:19)
[2018-12-28] MEDS ORDERED: Cefepime HCl 1,000 MG in Water for inj. (sterile) 10 ML IVP SCH
[2018-12-28] MEDS: D5% in 0.9% NACL 1,000 ML IVC SCH ×2 (03:50→14:50)
[2018-12-28] MEDS: Carbidopa/Levodopa ER 50/200 TABLET PO SCH ×3 (05:31→21:44)
[2018-12-28] MEDS: *HR* Heparin 5,000 UNIT/ML VIAL SQ SCH ×3 (05:34→22:29)
[2018-12-28 07:12] LABS: Basophils % 0.3 %; Eosinophils # 0.1 K/mcL (0.0-0.6); Eosinophils % 2.4 %; Hemoglobin 11.9 g/dL (12.9-16.9); Immature Granulocytes % 0.7 % (0-4); Lymphocytes # 0.6 K/mcL (0.6-4.6); Lymphocytes % 9.9 %; Mean Corpuscular Hemoglobin 33.2 pg (28.0-33.3); Mean Corpuscular Volume 97.8 fL (83.0-100.0); Mean Platelet Volume 11.3 fL (9.4-12.4); Monocytes # 0.4 K/mcL (0.0-1.3); Monocytes % 6.1 %; Neutrophils # 4.7 K/mcL (1.6-8.9); Nucleated Red Blood Cells 0.5 /100 WBC (0); Platelet Count 145 K/mcL (140-400); Red Blood Count 3.58 M/mcL (4.19-5.50); Red Cell Distribution Width 15.4 % (11.5-14.5); Segmented Neutrophils % 80.6 %; White Blood Count 5.9 K/mcL (4.3-11.1)
[2018-12-28 07:32] LABS: BUN/Creatinine Ratio 33 (6-26); Blood Urea Nitrogen 24 mg/dL (8-23); Calcium 8.5 mg/dL (8.6-10.3); Carbon Dioxide 28 mEq/L (23-29); Chloride 110 mEq/L (98-107); Glucose 102 mg/dL (70-105); Magnesium 2.1 mg/dL (1.6-2.6); Osmolality,Calculated 300 (280-300); Potassium 4.5 mEq/L (3.5-5.1); Sodium 143 mEq/L (136-145); eGFR For African Americans > 60 (> 60); eGFR For Non-African Americans > 60 (> 60)
[2018-12-28] MEDS ORDERED: Ascorbic Acid 500 MG TABLET PO SCH (09:00)
[2018-12-28] MEDS ORDERED: 0.9 % Sodium Chloride Mini Bag 100 ML ONE (09:36)
[2018-12-28] MEDS: Cefepime HCl 2,000 MG in 0.9 % Sodium Chloride Mini Bag 100 ML IVPB SCH ×2 (09:38→17:49)
[2018-12-28] MEDS: Lacri-Lube 3.5 GM TUBE BOTH EYES SCH ×2 (09:39→22:30)
[2018-12-28] MEDS: Rivastigmine Tartrate (oral) 1.5 MG CAPSULE PO SCH ×2 (10:35→21:44)
[2018-12-28] MEDS: Ascorbic Acid 500 MG TABLET PO SCH (10:36)
[2018-12-28] MEDS: Cyanocobalamin (B-12) 1,000 MCG TABLET PO SCH (10:36)
[2018-12-28] MEDS ORDERED: Haloperidol Lactate 5 MG/ML VIAL IVP ONE (22:12)
[2018-12-28] MEDS ORDERED: *HR* Promethazine 25 MG/ML VIAL IVP ONE (22:13)
[2018-12-29 03:10] LABS: Basophils % 0.4 %; Eosinophils # 0.2 K/mcL (0.0-0.6); Eosinophils % 2.9 %; Hemoglobin 11.5 g/dL (12.9-16.9); Lymphocytes # 0.9 K/mcL (0.6-4.6); Mean Corpuscular HGB Conc 31.9 g/dL (31.6-35.5); Mean Corpuscular Hemoglobin 32.2 pg (28.0-33.3); Mean Corpuscular Volume 100.8 fL (83.0-100.0); Mean Platelet Volume 11.2 fL (9.4-12.4); Monocytes # 0.5 K/mcL (0.0-1.3); Monocytes % 9.1 %; Neutrophils # 3.5 K/mcL (1.6-8.9); Nucleated Red Blood Cells 0.6 /100 WBC (0); Platelet Count 143 K/mcL (140-400); Red Blood Count 3.57 M/mcL (4.19-5.50); Red Cell Distribution Width 15.5 % (11.5-14.5); Segmented Neutrophils % 68.6 %; White Blood Count 5.2 K/mcL (4.3-11.1)
[2018-12-29 03:26] LABS: BUN/Creatinine Ratio 26 (6-26); Blood Urea Nitrogen 22 mg/dL (8-23); Calcium 8.7 mg/dL (8.6-10.3); Carbon Dioxide 23 mEq/L (23-29); Chloride 112 mEq/L (98-107); Glucose 72 mg/dL (70-105); Magnesium 1.9 mg/dL (1.6-2.6); Osmolality,Calculated 294 (280-300); Potassium 4.4 mEq/L (3.5-5.1); Sodium 141 mEq/L (136-145); eGFR For African Americans > 60 (> 60); eGFR For Non-African Americans > 60 (> 60)
[2018-12-29] MEDS: Cefepime HCl 2,000 MG in 0.9 % Sodium Chloride Mini Bag 100 ML IVPB SCH (06:34)
[2018-12-29] MEDS: *HR* Heparin 5,000 UNIT/ML VIAL SQ SCH (06:34)
[2018-12-29] MEDS: D5% in 0.9% NACL 1,000 ML IVC SCH (06:34)
[2018-12-29] MEDS: Cyanocobalamin (B-12) 1,000 MCG TABLET PO SCH (09:39)
[2018-12-29] MEDS: Rivastigmine Tartrate (oral) 1.5 MG CAPSULE PO SCH (09:39)
[2018-12-29] MEDS ORDERED: Acetaminophen IV 500 MG/50 ML INFUS..BTL IVPB ONE (10:31)
[2018-12-29] MEDS: Lacri-Lube 3.5 GM TUBE BOTH EYES SCH ×2 (11:11→21:20)
[2018-12-29] MEDS: Ascorbic Acid 500 MG TABLET PO SCH (13:04)
[2018-12-29] MEDS ORDERED: Aminoglycoside Consult 1 EACH MC ONE (13:14)
[2018-12-29] MEDS ORDERED: Atropine Sulfate 1% 40 DROP/2 ML BOTTLE SL PRN (15:09)
[2018-12-29] MEDS: Haloperidol Lactate 5 MG/ML VIAL IVP PRN ×2 (17:04→23:57)
[2018-12-29] MEDS: *HR* LORazepam Oral Conc 2 MG/ML SL PRN ×2 (17:07→21:21)
[2018-12-30] MEDS: *HR* LORazepam Oral Conc 2 MG/ML SL PRN ×2 (02:36→20:26)
[2018-12-30 07:14] VITALS: BP 157/69
[2018-12-30] MEDS: D5% in 0.9% NACL 1,000 ML IVC SCH (07:46)
[2018-12-30] MEDS: *HR* Heparin 5,000 UNIT/ML VIAL SQ SCH (07:46)
[2018-12-30] MEDS: Morphine Sulfate Oral CONC 10 MG/0.5 ML ORAL.SYG SL PRN ×3 (11:11→20:27)
[2018-12-30] MEDS: Lacri-Lube 3.5 GM TUBE BOTH EYES SCH ×2 (11:12→20:28)
[2018-12-30] MEDS ORDERED: Scopolamine Patch 1.5 MG PATCH.TD72 TD SCH (11:15)
[2018-12-31] MEDS: Morphine Sulfate Oral CONC 10 MG/0.5 ML ORAL.SYG SL PRN ×7 (02:33→13:12)
[2018-12-31] MEDS: *HR* LORazepam Oral Conc 2 MG/ML SL PRN ×3 (02:33→11:56)
[2018-12-31] MEDS: Lacri-Lube 3.5 GM TUBE BOTH EYES SCH (08:39)
== END 2018-12-31 13:15 | disposition hospice, inpatient (51) | DRG 871 ==
LOC: 2ANU 10:54 → EMEROOARM 10:54 → SUATTDRO 13:18 → 2ANU 13:51
PROVIDERS: ADMIT Pharmacist; ATTEND Pharmacist

== ENCOUNTER 2018-12-31 09:42 | Inpatient (IN) ==
[2018-12-31] MEDS ORDERED: Acetaminophen 650 MG RECTAL SUPP RC PRN (10:18)
[2018-12-31] MEDS ORDERED: Haloperidol Lactate 5 MG/ML VIAL IVP PRN (10:18)
[2018-12-31] MEDS ORDERED: Ondansetron 4 MG/2 ML VIAL IVP PRN (10:25)
[2018-12-31] MEDS ORDERED: Scopolamine Patch 1.5 MG PATCH.TD72 TD SCH (10:30)
[2018-12-31] MEDS: *HR* LORazepam Oral Conc 2 MG/ML PO PRN ×2 (15:20→21:57)
[2018-12-31] MEDS: Morphine Sulfate Oral CONC 10 MG/0.5 ML ORAL.SYG PO PRN ×6 (15:20→23:15)
[2018-12-31] MEDS: Atropine Sulfate 1% 40 DROP/2 ML BOTTLE SL PRN ×4 (19:58→23:41)
[2018-12-31] MEDS: Lacri-Lube 3.5 GM TUBE BOTH EYES SCH (20:58)
[2019-01-01] MEDS: Morphine Sulfate Oral CONC 10 MG/0.5 ML ORAL.SYG PO PRN ×5 (00:23→15:59)
[2019-01-01] MEDS: Atropine Sulfate 1% 40 DROP/2 ML BOTTLE SL PRN ×6 (05:57→23:46)
[2019-01-01] MEDS: *HR* LORazepam Oral Conc 2 MG/ML PO PRN ×4 (07:12→15:59)
[2019-01-01] MEDS: Lacri-Lube 3.5 GM TUBE BOTH EYES SCH ×2 (07:17→21:56)
[2019-01-01] MEDS ORDERED: Glycopyrrolate 0.2 MG/ML VIAL IVP ONE (16:11)
[2019-01-01] MEDS: Morphine Sulfate Oral CONC 10 MG/0.5 ML ORAL.SYG PO SCH ×3 (16:57→23:46)
[2019-01-01] MEDS: *HR* FentaNYL (PF) 100 MCG/2 ML VIAL IVP PRN ×3 (17:00→23:45)
[2019-01-02] MEDS: Atropine Sulfate 1% 40 DROP/2 ML BOTTLE SL PRN ×3 (00:44→06:10)
[2019-01-02] MEDS: Morphine Sulfate Oral CONC 10 MG/0.5 ML ORAL.SYG PO SCH (03:37)
[2019-01-02] MEDS: *HR* FentaNYL (PF) 100 MCG/2 ML VIAL IVP PRN ×3 (03:45→06:16)
[2019-01-02] MEDS: *HR* LORazepam Oral Conc 2 MG/ML PO PRN (05:12)
[2019-01-02] MEDS ORDERED: Glycopyrrolate 0.2 MG/ML VIAL IVP ONE (06:28)
[2019-01-02] MEDS ORDERED: *HR* FentaNYL (PF) 100 MCG/2 ML VIAL IVP PRN (06:40)
[2019-01-02] MEDS ORDERED: *HR* FentaNYL (PF) 100 MCG/2 ML VIAL IVP SCH (06:45)
== END 2019-01-02 11:05 | disposition expired | DRG 951 ==
LOC: 2ANU 13:17
PROVIDERS: ADMIT Internal Medicine Hospice and Palliative Medicine; ATTEND Internal Medicine Hospice and Palliative Medicine